=== PATIENT | male | born 1940 | race Caucasian/White ===

== ENCOUNTER → 2019-02-12 | Outpatient (CLI) | payer MEDICARE, OTHER, SELFPAY ==
[2019-02-08 08:28] VITALS: BMI 22.5
--- NOTE | 2019-02-12 06:12 | CDU_ITS ---
Reason For Study: VERTIGO Rt. Velocities/BP Lt. Velocities/BP Prox CCA 82.0/12.7 cm/sec. Prox CCA 136.8/19.9 cm/sec. Mid CCA 95.1/16.0 cm/sec. Mid CCA 87.5/16.3 cm/sec. Dist CCA 74.3/10.5 cm/sec. Dist CCA 71.1/9.7 cm/sec. Prox ICA 89.7/18.2 cm/sec. Prox ICA 79.7/14.6 cm/sec. Mid ICA 68.8/18.2 cm/sec. Mid ICA 60.0/15.8 cm/sec. Dist ICA 50.1/16.0 cm/sec. Dist ICA 74.8/19.5 cm/sec. Rt. ICA/CCA = 89.7/95.1=0.9. Lt. ICA/CCA = 79.7/87.5=0.9. Prox ECA 67.7/0.0 cm/sec. Prox ECA 47.8/0.0 cm/sec. Rt. Vert. 42.6/12.7 cm/sec. Lt. Vert. 38.6/11.2 cm/sec. Right Extracranial There is heterogeneous, smooth atherosclerotic plaque noted in the right common carotid artery. There is heterogeneous, irregular atherosclerotic plaque noted in the right internal carotid artery. There is no significant atherosclerotic plaque noted in the right external carotid artery. Antegrade flow is noted in the right vertebral artery. Left Extracranial There is intimal thickening but no significant atherosclerotic plaque noted in the left common carotid artery. There is heterogeneous, irregular atherosclerotic plaque noted in the left internal carotid artery. There is no significant atherosclerotic plaque noted in the left external carotid artery. Antegrade flow is noted in the left vertebral artery. Procedure Carotid Duplex [id number]. The study was technically difficult. The exam was diagnostic. Exam performed in department. 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 <50% stenosis right external carotid Minimal plague at the proximal left internal carotid with <50% stenosis. <50% stenosis left external carotid Patent and antegrade vertebrals bilaterally Ordering Physician: Jarod Linder Referring Physician: Leobardo Heredia Performed By: Maddie Carballo, HEDY, RVT
--- NOTE | 2019-02-12 06:12 | ECHOD_ITS ---
Reason For Study: s/p CABG Procedure This was a 2D Doppler, Color Flow transthoracic echocardiogram. Exam performed in department. Left Ventricle Normal LV size. Left ventricular systolic function is normal. The estimated ejection fraction is 65 %. Stage 1 diastolic dysfunction. No regional wall motion abnormalities noted. Right Ventricle Normal RV size. Normal systolic function. Atria Normal left atrium. Normal right atrium. Mitral Valve Normal mitral valve. Mild (1+) eccentric mitral valve insufficiency. Tricuspid Valve Normal tricuspid valve. Mild (1+) tricuspid valve insufficiency. Pulmonary artery systolic pressure is 28 mmHg. Aortic Valve Trisinus/trileaflet aortic valve. Mild focal aortic valve calcification. Mild (1+) aortic valve insufficiency. Pulmonic Valve Normal pulmonic valve. Mild (1+) pulmonic valve insufficiency. Great Vessels Normal aortic root. The pulmonary artery is normal size. Normal inferior vena cava. Pericardium/Pleural No pericardial effusion. Medication Performed a rapid injection of agitated mix of 9 cc saline and 1cc air to assess for atrial septal defect. MMode/2D Measurements & Calculations LVIDd: 4.7 cm IVSd: 1.1 cm Ao root diam: 3.1 cm LVIDs: 3.1 cm LVPWd: 0.92 cm RVDd: 4.3 cm FS: 35.6 % LAV(MOD-bp): 46.3 ml LVAd ap4: 29.7 cm2 SV(MOD-sp4): 59.7 ml LAV(MOD-bp) Indexed: 23.6 ml/m2 EDV(MOD-sp4): 93.4 ml LAV(MOD-sp2): 50.8 ml EDV(sp4-el): 97.4 ml LAV(MOD-sp4): 36.8 ml LVAs ap4: 16.1 cm2 ESV(MOD-sp4): 33.7 ml ESV(sp4-el): 34.4 ml EF(MOD-sp4): 63.9 % EF(sp4-el): 64.7 % SV(sp4-el): 63.0 ml LA A4 area: 14.6 cm2 LA dimension(2D): 4.4 cm RA A4 area: 12.3 cm2 Doppler Measurements & Calculations MV E max betito: 60.8 cm/sec Lat Peak E' Betito: 8.8 cm/sec Med Peak E' Betito: 4.1 cm/sec MV A max betito: 73.6 cm/sec E/E' lat: 6.9 E/E' med: 14.7 MV E/A: 0.83 Ao V2 max: 158.8 cm/sec AI max betito: 424.1 cm/sec LV V1 max: 154.2 cm/sec Ao max P.1 mmHg AI max P.9 mmHg LV V1 max P.5 mmHg Ao V2 mean: 97.3 cm/sec Ao mean P.3 mmHg AI dec slope: 163.4 cm/sec2 Ao V2 VTI: 37.5 cm AI P1/2t: 760.0 msec PA V2 max: 105.9 cm/sec PI end-d betito: 85.7 cm/sec TR max betito: 241.0 cm/sec TR max P.2 mmHg Interpretation Summary Normal LV size. Left ventricular systolic function is normal. The estimated ejection fraction is 65 %. Stage 1 diastolic dysfunction. Mild focal aortic valve calcification. Mild (1+) aortic valve insufficiency. Mild (1+) eccentric mitral valve insufficiency. Ordering Physician: Jarod Linder Referring Physician: Leobardo Heredia Performed By: Marcela Gibson, HEDY, RVT
[2019-02-12 07:18] LABS: Absolute Lymphocyte Count 2.01 X10^3/ul (0.83-4.51); Absolute Neutrophil Count 2.7 X10^3/uL (2.0-7.7); Basophil# 0.04 X10^3/uL; Basophil% 0.7 % (0-1); Eosinophil# 0.16 X10^3/uL; Eosinophils% 2.9 % (0-5); Hemoglobin 15.1 g/dl (13.0-16.5); Lymphocyte # 2.01 X10^3/ul (4.0); Lymphocyte % 35.9 % (19-41); Mean Corp Hgb Conc 35.1 g/gl (32-36); Mean Corpuscular Hgb 30.9 pg (27.0-32.0); Mean Corpuscular Volume 87.9 fL (80-94); Monocyte# 0.71 X10^3/uL; Monocyte% 12.7 % (0-10); Neutrophil # 2.67 X10^3/uL (2.7-7.7); Neutrophil % 47.6 % (47-70); Platelet Count 313 K/mm3 (150-450); RBC Distribution Width CV 12.8 % (11.6-14.6); Red Blood Count 4.89 M/mm3 (4.6-6.2); White Blood Count 5.6 K/mm3 (4.4-11.0)
[2019-02-12 07:32] LABS: AST(SGOT) 13 U/L (15-37); Alanine Aminotransfer ALT/SGPT 19 U/L (16-61); Albumin, Serum 3.8 g/dL (3.2-5.0); Alkaline Phosphatase 40 U/L (45-117); Anion Gap 8 (5-15); BUN 10 mg/dL (7-18); BUN/Creat Ratio 10.8 RATIO (10-20); Bilirubin, Direct 0.28 mg/dL (0.00-0.30); Calcium,Total 8.9 mg/dL (8.5-10.1); Chloride 102 mmol/L (98-107); Cholesterol 162 mg/dL (200); Creatinine, Serum 0.92 mg/dL (0.70-1.30); EST Glomerular Filtration Rate 84 mL/min (>60); Est Glom Filt Rate - Afr Amer 102 mL/min (>60); Globulin 3.4 g/dL (2.2-4.2); Glucose 101 mg/dL (74-106); High Density Lipoprotein 60 mg/dL; Potassium 3.9 mmol/L (3.5-5.1); Protein, Total 7.2 g/dL (6.4-8.2); Sodium Level 134 mmol/L (136-145); Thyroid Stim Hormone (TSH) 0.45 uIU/mL (0.358-3.74); Triglycerides 92 mg/dL; Very Low Density Lipoprotein 18 mg/dL (5-40)
[2019-02-12 07:34] LABS: POSITIVE COUNT NO; POSITIVE DIFFERENTIAL NO; POSITIVE MORPHOLOGY NO
--- NOTE | 2019-02-12 09:28 | STRESSREP ---
Stress Test Report Exercise myocardial stress test. 78-year-old male with a history of chest pain. Stress protocol: Resting EKG demonstrates sinus bradycardia with a rate of 46 bpm normal intervals are noted resting blood pressures 128/68 mmHg. The patient exercised according to regular Richar protocol for total duration of 8 minutes. The patient completed 2 minutes into stage III of the Richar protocol. The maximum heart rate attained was 120 bpm which was 83% of maximum predicted heart rate and maximum workload was 10.1 metabolic equivalents. Patient maintained sinus rhythm throughout the recording. At rest there were no ST changes noted to suggest ischemia at peak exercise there was 1.[address] depression noted in lead III, less than [address] depression noted in lead V4 and V5 and 1.[address] depression noted in lead II. The above is not indicative of ischemia. The patient did not experience any chest pain. The resting blood pressure was 128/68 with a peak blood pressure 170/78 mmHg. Myocardial perfusion protocol. 11.2 mCi of technetium 99m sestamibi was injected at rest. The patient exercised according to regular Richar protocol for 8 minutes. At peak exercise 33.3 mCi of technetium 99m sestamibi was injected stress images were obtained stress and rest images were reconstructed and compared in the short axis vertical long horizontal long axis. Perfusion SPECT analysis: Review of the stress images demonstrate normal uptake of tracer noted in the septum anterior wall lateral wall and inferior wall. The basal inferior wall on the stress images demonstrated mildly reduced perfusion which appeared to be similar in the resting images. The above is not indicative of ischemia of the previous small infarct cannot be completely excluded. Gated SPECT analysis: The gated ejection fraction is noted to be 69%. Conclusion: Exercise myocardial perfusion stress test with no evidence of ischemia noted at a high workload. No clinical angina noted No arrhythmias noted. Preserved ejection fraction.
== END | disposition home or self-care (01) ==
PROVIDERS: Family Provider Family Medicine; PCP Family Medicine; Referring Provider Internal Medicine Cardiovascular Disease; Visit Provider Internal Medicine Cardiovascular Disease
DX: R07.9 Chest pain, unspecified (principal); R09.89 Other specified symptoms and signs involving the circulatory and respiratory systems; E78.5 Hyperlipidemia, unspecified; Z95.1 Presence of aortocoronary bypass graft
CPT/HCPCS: 36415; 78452; 80048; 80061; 80076; 84443; 84484; 85025; 93017; 93306; 93880; A9500; A4216

== ENCOUNTER 2022-04-12 21:25 | Inpatient (IN) | payer MEDICARE, OTHER, SELFPAY ==
[2022-04-12] VITALS (8 sets, daily range): BP systolic 145–197; BP diastolic 63–81; PULSE 52–70; RESP 13–22; TEMP 35.9–36.7; O2SAT 96–99; BMI 21.2; BMI 19.8
--- NOTE | 2022-04-12 21:30 | EKG12_ITS ---
Test Reason : DYSRHYTHMIA Blood Pressure : / mmHG Vent. Rate : 052 BPM Atrial Rate : 052 BPM P-R Int : 204 ms QRS Dur : 090 ms QT Int : 478 ms P-R-T Axes : 044 -06 074 degrees QTc Int : 444 ms Sinus bradycardia Otherwise normal ECG Confirmed by PERRI SIBLEY, MORALES ([id number]), metropolitan editor JOHN WATERMAN ([id number]) on 04/13/2022 9:22:46 AM Referred By: TL Confirmed By:MORALES RAYO MD
--- NOTE | 2022-04-12 21:30 | CT_ITS ---
STUDY: CT HEAD STROKE PROTOCOL W/O CONTRAST INJECTION REASON FOR EXAM: Male, 82 years old. Neuro deficit, acute, stroke suspected TECHNIQUE: Transaxial CT imaging of the brain was performed without administration of intravenous contrast material. There is image blurring as a result of patient motion. Diagnostic accuracy is somewhat reduced. However, there is substantial diagnostic information remaining available on this study. Individualized dose optimization techniques were used for this CT. COMPARISON: No relevant priors. FINDINGS: Normal soft tissue structures. Normal calvarium. Normal size ventricles and extra-axial spaces for the patient''s age. Normal white matter tracts of the cerebral hemispheres. Normal basal ganglia and thalami. Normal brainstem. Normal cerebellum. There is no intracranial hemorrhage. There are no findings of an acute ischemic infarction. 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 There is no acute intracranial pathology. N.B. : The above Results were Read Back by Kaila Johnson MD to Dr. Adia MD, and understanding confirmed on 04/12/2022 21:45:32 (ET). Electronically Signed: Kaila Johnson MD at 21:46 EDT Reading Location ID and State: , Service support ,
--- NOTE | 2022-04-12 21:45 | ED.VIS.STROK ---
HPI History of Present Illness Chief Complaint: Neuro S/Sx Informant: patient and family Narrative Narrative: Patient seen immediately after stroke team activated and brought back from CT. Daughter was present who gave me history while he was at CT. Last normal with her discussion 7 PM when he went to [facility]. She received a call around 8 PM that patient was staring. She arrived there he could not talk. He nodded. He walked to the car per daughter. No stroke history. History of CABG back in 1995 on baby aspirin. History of hypertension hyperlipidemia hypothyroidism and BPH. No stroke history. No recent surgeries. Daughter reports recent trouble swallowing, saw Dr. Gaviria with nasolaryngoscopy that was negative. His upcoming barium swallow study. He had no issues with swallowing in the past. 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) Home Medications aspirin 81 mg tablet,delayed release (Adult Low Dose Aspirin) 81 mg PO DAILY #90 tabs 02/08/19 [Rx Last Taken Unknown] lisinopril 20 mg-hydrochlorothiazide 12.5 mg tablet 1 tab PO DAILY #90 tabs 02/08/19 [Rx Last Taken Unknown] nitroglycerin 0.4 mg sublingual tablet 0.4 mg sublingual Q5-15M 02/08/19 [History Last Taken Unknown] simvastatin 40 mg tablet 40 mg PO DAILY #90 tabs 02/08/19 [Rx Last Taken Unknown] tamsulosin 0.4 mg capsule (Flomax) 0.4 mg PO DAILY #90 caps 02/12/19 [Rx Last Taken Unknown] finasteride 5 mg tablet 5 mg PO DAILY 09/02/21 [History Last Taken Unknown] levothyroxine 100 mcg tablet 100 mcg PO DAILY 09/02/21 [History Last Taken Unknown] Allergy/AdvReac Type Severity Reaction Status Date / Time No Known Allergies Allergy Verified 04/12/22 21:26 Family History Father Cancer Mother Heart disease Surgical History H/O coronary artery bypass surgery (10/20/95) History of appendectomy History of cataract surgery History of coronary angioplasty (03/1995) Hx of cholecystectomy Social History Smoking Status: Never smoker alcohol intake: current alcohol intake frequency: holidays/special occasions only substance use type: does not use caffeine: Yes Type: coffee ROS ROS ED Constitutional Constitutional ED: Denies chills, fever(s) or sweats Eyes Eyes: Denies change in vision ENT ENT ED: Denies dysphagia or sore throat Cardiovascular Cardiovascular: Denies chest pain, leg edema, palpitations or racing heartbeat Respiratory/Chest Respiratory/Chest: Denies cough, dyspnea or dyspnea on exertion Gastrointestinal Gastrointestinal: Reports nausea and vomiting; Denies abdominal pain or diarrhea Genitourinary Genitourinary ED: Denies dysuria, hematuria or urinary frequency Musculoskeletal Musculoskeletal: Denies back pain, extremity pain or neck pain Integumentary Denies rash or wounds Neurologic Neurologic: Reports other Details: Trouble speaking. ; Denies headache(s), paresthesias or weakness EXAM Physical Exam Const Vital Signs: 04/12/22 21:43 04/12/22 21:47 04/12/22 21:58 Temperature 96.7 F L Temperature Source Temporal Pulse Rate 52 L 55 L Respiratory Rate 22 H 16 Blood Pressure 197/81 H 164/69 H Blood Pressure Mean 119 100 Pulse Ox 99 99 Oxygen Delivery Method Room Air Room Air Room Air 04/12/22 21:30 04/12/22 22:00 04/12/22 22:25 Temperature Temperature Source Pulse Rate 56 L 56 L 70 Respiratory Rate 13 18 16 Blood Pressure 149/76 H 147/72 H 151/81 H Blood Pressure Mean 100 97 104 Pulse Ox 99 99 96 Oxygen Delivery Method Room Air Room Air Room Air 04/12/22 22:30 04/12/22 23:07 Temperature 98.1 F Temperature Source Temporal Pulse Rate 57 L 56 L Respiratory Rate 20 H 17 Blood Pressure 157/69 H 159/76 H Blood Pressure Mean 98 103 Pulse Ox 99 96 Oxygen Delivery Method Room Air Room Air Positive well nourished and well developed Constitutional Narrative: Hard of hearing. Nontoxic. Following commands. There is emesis on his shirt and pants. General Appearance ED: well developed and NAD HEENT Reports moist mucous membranes normocephalic and atraumatic Eyes PERRL, EOMs intact bilaterally and conjunctivae normal General Eye ED: Yes normal appearance of both eyes Neck no lymphadenopathy and supple General: Negative for tenderness Chest Wall Chest: Negative for tenderness Resp normal respiratory effort and normal air movement Effort and Inspection: symmetric chest movement; Negative for respiratory distress Cardio regular rate, regular rhythm and no murmurs Peripheral Pulses: pulses 2+ throughout GI normal to inspection, nondistended, normoactive bowel sounds and non-tender Palpation: Negative for guarding or rebound tenderness present Back/Spine no CVA tenderness and no thoracic nor lumbar tenderness Extremity normal to inspection General Extremety ED: Negative for edema or tenderness General Extremity: Negative for edema Neuro oriented x3 and no sensory deficits noted Sensorium / Orientation: awake and alert Skin no rashes or lesions noted and no wounds NIHSS NIHSS Initial: 1a Level of Consciousness: 0 1b LOC Questions (Score 2 if aphasic/stupor): 1 1c LOC Commands (Only score 1st attempt): 0 2 Best Gaze (If aphasic, use reflexive mvmts.): 0 3 Visual: 0 4 Facial Palsy: 0 5 Motor Arm Right (UN = amputation/fusion): 0 5 Motor Arm Left: 0 6 Motor Leg Right: 0 6 Motor Leg Left: 0 7 Limb ataxia (Only + if out of proportion): 0 8 Sensory (Aphasia/stupor=0 or 1, coma=2): 1 9 Best Language: 1 10 Dysarthria (mute, coma=2, intubated=UN): 0 11 Extinction and Inattention (only scored if +): 0 Total Score: 3 MDM MDM MDM Narrative Medical decision making narrative: Stroke team was activated from triage. NIH of 3 on my evaluation. During neurology evaluation he was improving he knew the month at that time. Extensive evaluation by neurology , risks and benefits discussed. Per doctors Zha, symptoms too mild for tPA did not recommend that risk is higher. CT head negative per radiology mild ectasia of the basilar artery up to 0.6cm. He has no posterior circulation symptoms. CTA head and neck obtained showed no LVO per radiology. Reevaluation patient is stable blood pressure stable he is currently not back to full baseline. Discussed with hospitalist Dr. Agyepong for admission to PCU for further inpatient management. Lab Data Labs: Laboratory Results - last 24 hr 04/12/22 04/12/22 04/12/22 21:39 21:40 21:40 WBC 9.0 RBC 4.33 L Hgb 13.5 Hct 39.3 L MCV 90.8 MCH 31.2 MCHC 34.4 RDW Std Deviation 44.1 H RDW Coeff of Silvana 13.2 Plt Count 344 MPV 8.9 Immature Gran % (Auto) 0.400 Neut % (Auto) 64.7 Lymph % (Auto) 22.1 [place] % (Auto) 11.2 H Eos % (Auto) 0.9 Baso % (Auto) 0.7 Absolute Neuts (auto) 5.8 Absolute Lymphs (auto) 1.98 Nucleated RBC % 0 PT 13.4 INR 1.1 APTT 30.1 Sodium Potassium Chloride Carbon Dioxide Anion Gap BUN Creatinine Estim Creat Clear Calc Est GFR (MDRD) Af Amer Est GFR (MDRD) Non-Af BUN/Creatinine Ratio Glucose Calcium Troponin I High Sens POC Glucose 113 H 04/12/22 21:40 WBC RBC Hgb Hct MCV MCH MCHC RDW Std Deviation RDW Coeff of Silvana Plt Count MPV Immature Gran % (Auto) Neut % (Auto) Lymph % (Auto) [place] % (Auto) Eos % (Auto) Baso % (Auto) Absolute Neuts (auto) Absolute Lymphs (auto) Nucleated RBC % PT INR APTT Sodium 132 L Potassium 3.9 Chloride 97 L Carbon Dioxide 25.0 Anion Gap 10 BUN 16 Creatinine 0.85 Estim Creat Clear Calc 69.41 Est GFR (MDRD) Af Amer 112 Est GFR (MDRD) Non-Af 93 BUN/Creatinine Ratio 18.9 Glucose 120 H Calcium 10.1 Troponin I High Sens 10 POC Glucose Radiography Diagnostic Testing: Clinical Impression(s) from Imaging Studies Brain CT 04/12/22 21:30 IMPRESSION: Chronic involutional changes of the brain. 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 There is no acute intracranial pathology. N.B. : The above Results were Read Back by Kaila Johnson MD to Dr. Adia MD, and understanding confirmed on 04/12/2022 21:45:32 (ET). Electronically Signed: Kaila Johnson MD at 21:46 EDT , ADDENDUM: 04/12/22 2153 IMPRESSION: Chronic involutional changes of the brain. 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 There is no acute intracranial pathology. N.B. : The above Results were Read Back by Kaila Johnson MD to Dr. Adia MD, and understanding confirmed on 04/12/2022 21:45:32 (ET). Electronically Signed: Kaila Johnson MD at 21:46 EDT , Head/Neck CTA 04/12/22 22:00 IMPRESSION: No significant arterial narrowing in the head or neck. Dolichoectatic basilar. Mild atherosclerosis. Degenerative changes cause moderate to severe spinal canal narrowing at C3-4 and high-grade foraminal narrowing on the left at C3-4, C4-5, and C5-C6. N.B. : The above Results were Read Back by Tommy Marquez MD to Dr. Adia MD, and understanding confirmed on 04/12/2022 22:39:45 (ET). Electronically Signed: Tommy Marquez MD at 22:41 EDT Reading Location ID and State: [address] [place] [address] Tel , Service support , ADDENDUM: 04/12/22 2248 IMPRESSION: No significant arterial narrowing in the head or neck. Dolichoectatic basilar. Mild atherosclerosis. Degenerative changes cause moderate to severe spinal canal narrowing at C3-4 and high-grade foraminal narrowing on the left at C3-4, C4-5, and C5-C6. N.B. : The above Results were Read Back by Tommy Marquez MD to Dr. Adia MD, and understanding confirmed on 04/12/2022 22:39:45 (ET). Electronically Signed: Tommy Marquez MD at 22:41 EDT , Chest X-Ray 04/12/22 22:10 IMPRESSION: No acute cardiopulmonary disease. No significant interval change. Other nonacute findings as outlined above. Electronically Signed: Kaila Johnson MD at 22:28 EDT , EKG Initial EKG: Attestation: I personally reviewed and interpreted this EKG as follows: Comments: Sinus rate of 52, no ST changes isolated T wave inversion in aVL. Nonspecific. Similar to September 2021. Stroke Documentation Questions Stroke Team Activated: Yes Reviewed Inclusion/Exclusion criteria: Yes Was Patient considered for Endovascular Intervention?: No-CTA negative, determined not to be an endovascular candidate IV Alteplase (t-PA) Administered: No (To mild for tPA risk higher per neurologist.) No contraindications for IV Alteplase (t-PA) administration.: No Discharge Plan Dx/Rx/DC Orders Clinical Impression: Acute CVA (cerebrovascular accident), Dysarthria, CAD (coronary artery disease) Disposition Disposition: Acute Care Hospital [facility] Discharge Date/Time: 04/12/22 23:37
[2022-04-12 21:48] LABS: Absolute Lymphocyte Count 1.98 X10^3/uL (0.83-4.51); Absolute Neutrophil Count 5.8 X10^3/uL (2.0-7.7); Basophil# 0.06 X10^3/uL; Basophil% 0.7 % (0-1); Eosinophil# 0.08 X10^3/uL; Eosinophils% 0.9 % (0-5); Hematocrit 39.3 % (40-54); Hemoglobin 13.5 g/dL (13.0-16.5); Lymphocyte # 1.98 X10^3/ul (0.83-4.51); Lymphocyte % 22.1 % (19-41); Mean Corp Hgb Conc 34.4 g/dL (32-36); Mean Corpuscular Hgb 31.2 pg (27.0-32.0); Mean Corpuscular Volume 90.8 fL (80-94); Mean Platelet Vol. 8.9 fl (6.2-12.0); Monocyte% 11.2 % (0-10); NRBC Flagged by Analyzer 0 % (0-5); Neutrophil # 5.79 X10^3/uL (2.7-7.7); Neutrophil % 64.7 % (47-70); Platelet Count 344 K/mm3 (150-450); RBC Distribution Width CV 13.2 % (11.6-14.6); RBC Distribution Width SD 44.1 fl (35.1-43.9); Red Blood Count 4.33 M/mm3 (4.6-6.2)
[2022-04-12 21:57] LABS: International Normalized Ratio 1.1; Prothrombin Time (Protime)PT. 13.4 SECONDS (11.7-14.9)
[2022-04-12 21:58] LABS: Partial Thromboplast Time 30.1 Seconds (24.1-36.2)
[2022-04-12 22:00] LABS: Bedside Glucose 113 mg/dL (74-106)
--- NOTE | 2022-04-12 22:00 | CT_ITS ---
STUDY: CTA HEAD AND NECK WITH CONTRAST REASON FOR EXAM: Male, 82 years old. Stroke symptoms. RADIATION DOSAGE (If Supplied By Facility): CTDIvol = ( 27.50 ) mGy, DLP = ( 740.18 ) mGycm TECHNIQUE: CT angiography was performed with a multi-detector CT scanner. Data acquisition was obtained from the skull base through the vertex following intravenous administration of IV 100mL Isovue-370 with MIP and 3D reconstructed images. Individualized dose optimization techniques were used for this CT. COMPARISON: Head CT without contrast earlier same date. Carotid ultrasound 02/12/2019. FINDINGS: Cervical ICA narrowing is measured per NASCET criteria (% ICA stenosis = (1 - [narrowest ICA diameter/diameter normal distal cervical ICA]) x 100. CTA NECK: Aortic arch: Left-sided 3 vessel aortic arch with no significant narrowing of the great vessel origins or subclavian arteries. Right carotids: Right CCA: No significant narrowing or dissection. Right ICA: No significant narrowing or dissection. Mild, 10%, narrowing of the origin secondary to mixed plaque. Right ECA: No significant narrowing or dissection. Left carotids Left CCA:No significant narrowing or dissection. Left ICA: No significant narrowing or dissection. Small amount of calcific plaque causes no significant narrowing of the origin. Left ECA: No significant narrowing or dissection. Vertebrals: Codominant vertebral arteries with no significant narrowing and no dissection. CTA HEAD: Intracranial carotids:Normal course and caliber. MCAs:No aneurysm or significant stenosis. ACAs:No aneurysm or significant stenosis. Basilar: No narrowing. Moderately dolichoectatic. independent living instructor:Multifocal mild atherosclerotic irregularity. No high-grade narrowing. Fed by dominant P1 segments bilaterally. Patent bilateral posterior and anterior inferior and superior cerebellar arteries are identified. No evidence of AVM or aneurysm. No intracranial DVT. Nonvascular structures: Degenerative changes cervical spine. Disc osteophyte complex and degenerative buckling of the ligamentum flavum causes moderate to severe spinal canal narrowing at C3-4. Osteophytes cause high-grade foraminal narrowing on the left at C3-4, C4-5, and C5-C6. Sternotomy wires partially visible. Left maxillary sinus almost completely filled with mucosal thickening and fluid. CT/STROKE CTA Head AND Neck W/Con IMPRESSION: No significant arterial narrowing in the head or neck. Dolichoectatic basilar. Mild atherosclerosis. Degenerative changes cause moderate to severe spinal canal narrowing at C3-4 and high-grade foraminal narrowing on the left at C3-4, C4-5, and C5-C6. N.B. : The above Results were Read Back by Tommy Marquez MD to Dr. Adia MD, and understanding confirmed on 04/12/2022 22:39:45 (ET). Electronically Signed: Tommy Marquez MD at 22:41 EDT Reading Location ID and State: [facility] / [place] Tel , Service support ,
[2022-04-12 22:08] LABS: Anion Gap 10 (5-15); BUN 16 mg/dL (7-18); BUN/Creat Ratio 18.9 RATIO (10-20); Calcium,Total 10.1 mg/dL (8.5-10.1); Chloride 97 mmol/L (98-107); Creatinine, Serum 0.85 mg/dL (0.70-1.30); EST Glomerular Filtration Rate 93 mL/min (>60); Est Glom Filt Rate - Afr Amer 112 mL/min (>60); Estimated Creatinine Clearance 69.41 ml/min; Glucose 120 mg/dL (74-106); Potassium 3.9 mmol/L (3.5-5.1); Sodium Level 132 mmol/L (136-145); Troponin-I HS 10 pg/mL (3.0-78.0)
--- NOTE | 2022-04-12 22:10 | RAD_ITS ---
STUDY: X-RAY CHEST REASON FOR EXAM: Male, 82 years old. Neuro deficit, acute, stroke suspected TECHNIQUE: Single AP portable view of the chest. COMPARISON: 05/13/2016 FINDINGS: There are superimposed monitor leads. Retained contrast in the venous valves right upper extremity. The lungs are clear and expanded. There is no demonstrated pleural abnormality. Sternal cerclage wires are present from a prior sternotomy. Normal mediastinum and kristina. Normal visualized pulmonary arteries. Normal 63 visualized aortic arch and descending thoracic aorta. There is demineralization of the osseous structures. There is degenerative osteoarthritis of the bilateral shoulders. There is no demonstrated abnormality of the visualized soft tissue structures of the upper abdomen. RAD/Chest 1 View IMPRESSION: No acute cardiopulmonary disease. No significant interval change. Other nonacute findings as outlined above. Electronically Signed: Kaila Johnson MD at 22:28 EDT Reading Location ID and State: , Service support ,
[2022-04-12] MEDS: Ondansetron 4 MG/2 ML Vial IV (22:13)
--- NOTE | 2022-04-12 23:09 | PCM.HP.STD ---
HPI - General General Date of Admission: 04/12/22 Date of Service: 04/12/22 Chief Complaint: Strokelike symptoms HPI Narrative ARABELLA GARCIA, is a 82 M with a significant history of CAD status post CABG; hypothyroidism; sinus bradycardia; and hyperlipidemia who presents emergency department with strokelike symptoms. About 2 hours before presentation patient was at judaism and then he began to stare. He was unable to talk. He was answering questions by nodding. Reportedly initially at the emergency department he did not know the month but later on he knew the month. Emergency department doctor reported some change in sensation. At the emergency department his aphasia went away and he stopped staring. Reportedly patient had 1 episode of vomiting prior to coming to emergency department and another episode of vomiting at the emergency department. 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) Home Medications aspirin 81 mg tablet,delayed release (Adult Low Dose Aspirin) 81 mg PO DAILY #90 tabs 02/08/19 [Rx Last Taken Unknown] lisinopril 20 mg-hydrochlorothiazide 12.5 mg tablet 1 tab PO DAILY #90 tabs 02/08/19 [Rx Last Taken Unknown] nitroglycerin 0.4 mg sublingual tablet 0.4 mg sublingual Q5-15M 02/08/19 [History Last Taken Unknown] simvastatin 40 mg tablet 40 mg PO DAILY #90 tabs 02/08/19 [Rx Last Taken Unknown] tamsulosin 0.4 mg capsule (Flomax) 0.4 mg PO DAILY #90 caps 02/12/19 [Rx Last Taken Unknown] finasteride 5 mg tablet 5 mg PO DAILY 09/02/21 [History Last Taken Unknown] levothyroxine 100 mcg tablet 100 mcg PO DAILY 09/02/21 [History Last Taken Unknown] Allergy/AdvReac Type Severity Reaction Status Date / Time No Known Allergies Allergy Verified 04/12/22 21:26 Family History Father Cancer Mother Heart disease Surgical History H/O coronary artery bypass surgery (10/20/95) History of appendectomy History of cataract surgery History of coronary angioplasty (03/1995) Hx of cholecystectomy Social History Smoking Status: Never smoker alcohol intake: current alcohol intake frequency: holidays/special occasions only substance use type: does not use caffeine: Yes Type: coffee ROS ROS Narrative Pertinent positives and pertinent negatives as noted in HPI. All other systems were reviewed and are negative Vital Signs Vital Signs Vital Signs: 04/12/22 21:43 04/12/22 21:47 04/12/22 21:58 Temperature 96.7 F L Temperature Source Temporal Pulse Rate 52 L 55 L Respiratory Rate 22 H 16 Blood Pressure 197/81 H 164/69 H Blood Pressure Mean 119 100 Pulse Ox 99 99 Oxygen Delivery Method Room Air Room Air Room Air 04/12/22 21:30 04/12/22 22:00 04/12/22 22:25 Temperature Temperature Source Pulse Rate 56 L 56 L 70 Respiratory Rate 13 18 16 Blood Pressure 149/76 H 147/72 H 151/81 H Blood Pressure Mean 100 97 104 Pulse Ox 99 99 96 Oxygen Delivery Method Room Air Room Air Room Air 04/12/22 22:30 Temperature Temperature Source Pulse Rate 57 L Respiratory Rate 20 H Blood Pressure 157/69 H Blood Pressure Mean 98 Pulse Ox 99 Oxygen Delivery Method Room Air Weight Weight: 70.8 kg Body Mass Index (BMI) 21.2 Physical Exam Narrative Physical exam: General: Well-nourished, well-developed. Head: Normocephalic, atraumatic, no tenderness Eyes: Vision is grossly intact. EOMI ENT, no trauma, moist mucous membranes, no rhinorrhea Neck: Nontender, full range of motion, no spinal tenderness. CVS: Regular rate and rhythm. S1-S2 present. Gallop present. Respiratory : clear to auscultation bilaterally, chest wall nontender, no wheezing Abdomen: Soft, nontender, nondistended, normal bowel sounds, no masses : Deferred Back: Nontender, no CVA tenderness. Extremities: Nontender full range of motion, no trauma Skin: Normal color, no trauma, abrasions Neuro: Alert, oriented, cranial nerves II through XII grossly intact. No sensation changes. No dysmetria with cfoavs-[id number] test and gfeb-qf-[id number] test. Psychiatry: Normal mood. Normal affect. Not depressed. Not anxious. Results Lab / Micro Data Result Diagrams: 04/12/22 21:40 04/12/22 21:40 Labs: Laboratory Results - last 24 hr 04/12/22 21:39: POC Glucose 113 H 04/12/22 21:40: WBC 9.0, RBC 4.33 L, Hgb 13.5, Hct 39.3 L, MCV 90.8, MCH 31.2, MCHC 34.4, RDW Std Deviation 44.1 H, RDW Coeff of Silvana 13.2, Plt Count 344, MPV 8.9, Immature Gran % (Auto) 0.400, Neut % (Auto) 64.7, Lymph % (Auto) 22.1, [place] % (Auto) 11.2 H, Eos % (Auto) 0.9, Baso % (Auto) 0.7, Absolute Neuts (auto) 5.8, Absolute Lymphs (auto) 1.98, Nucleated RBC % 0 04/12/22 21:40: PT 13.4, INR 1.1, APTT 30.1 04/12/22 21:40: Sodium 132 L, Potassium 3.9, Chloride 97 L, Carbon Dioxide 25.0, Anion Gap 10, BUN 16, Creatinine 0.85, Estim Creat Clear Calc 69.41, Est GFR (MDRD) Af Amer 112, Est GFR (MDRD) Non-Af 93, BUN/Creatinine Ratio 18.9, Glucose 120 H, Calcium 10.1, Troponin I High Sens [address] 04/12/22 21:30 IMPRESSION: Chronic involutional changes of the brain. 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 There is no acute intracranial pathology. N.B. : The above Results were Read Back by Kaila Johnson MD to Dr. Adia MD, and understanding confirmed on 04/12/2022 21:45:32 (ET). Electronically Signed: Kaila Johnson MD at 21:46 EDT Reading Location ID and State: , Service support , ADDENDUM: 04/12/223 IMPRESSION: Chronic involutional changes of the brain. 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 There is no acute intracranial pathology. N.B. : The above Results were Read Back by Kaila Johnson MD to Dr. Adia MD, and understanding confirmed on 04/12/2022 21:45:32 (ET). Electronically Signed: Kaila Johnson MD at 21:46 EDT Reading Location ID and State: , Service support , Head/Neck CTA 04/12/22 22:00 IMPRESSION: No significant arterial narrowing in the head or neck. Dolichoectatic basilar. Mild atherosclerosis. Degenerative changes cause moderate to severe spinal canal narrowing at C3-4 and high-grade foraminal narrowing on the left at C3-4, C4-5, and C5-C6. N.B. : The above Results were Read Back by Arabella Marquez MD to Dr. Adia MD, and understanding confirmed on 04/12/2022 22:39:45 (ET). Electronically Signed: Arabella Marquez MD at 22:41 EDT Reading Location ID and State: [facility] [place] Tel , Service support , ADDENDUM: 04/12/22 2248 IMPRESSION: No significant arterial narrowing in the head or neck. Dolichoectatic basilar. Mild atherosclerosis. Degenerative changes cause moderate to severe spinal canal narrowing at C3-4 and high-grade foraminal narrowing on the left at C3-4, C4-5, and C5-C6. N.B. : The above Results were Read Back by Arabella Marquez MD to Dr. Adia MD, and understanding confirmed on 04/12/2022 22:39:45 (ET). Electronically Signed: Arabella Marquez MD at 22:41 EDT Reading Location ID and State: [facility] / [place] Tel , Service support , Chest X-Ray 04/12/22 22:10 IMPRESSION: No acute cardiopulmonary disease. No significant interval change. Other nonacute findings as outlined above. Electronically Signed: Kaila Johnson MD at 22:28 EDT Reading Location ID and State: , Service support , Assessment & Plan Assessment/Plan (1) Stroke-like symptoms: PLAN: Plan Strokelike symptoms Serial NINDS NIH Scale ordered Impression of head CT by radiology: No acute intracranial pathology Upon my personal head CT image review: I agree with radiologist interpretation Lipid profile and A1c ordered. Physical therapy, occupational therapy and speech therapy to work with patient. N.p.o. until bedside swallow eval. Daily aspirin and high intensity statin continued High intensity statin Permissive hypertension. Control blood pressure with labetalol for systolic blood pressure of more than 220 or diastolic blood pressure of more than 120. MRI of head ordered Echocardiogram ordered. Hypertension Blood pressure is not within goal Hold home blood pressure medication for permissive hypertension as above. Trend blood pressure and adjust blood pressure medications. Hyponatremia Sodium presentation was mildly decreased at 132. Review of record showed that this is chronic. Trend BMP. Dysphagia Reportedly patient had nasolaryngoscopy with Dr. Oh and barium swallow is scheduled for 04/16/2022. Speech consult while inpatient. DVT prophylaxis: SCDs ordered Miscellaneous: Family issue with police involvement. Reportedly patient's called the police that patient is missing while patient was not indeed missing. Police was at the ED to see patient. Case management consult for disposition .
--- NOTE | 2022-04-12 23:39 | ECHOD_ITS ---
Reason For Study: TIA/CVA Procedure This was a 2D Doppler, Color Flow transthoracic echocardiogram. Exam performed portable in patient room. Left Ventricle Normal LV size. Left ventricular systolic function is normal. The estimated ejection fraction is 55 %. Stage 2 diastolic dysfunction. No regional wall motion abnormalities noted. Right Ventricle Normal RV size. Normal systolic function. Atria Normal left atrium. Normal right atrium. Mitral Valve Normal mitral valve. Tricuspid Valve Normal tricuspid valve. Aortic Valve Trisinus/trileaflet aortic valve. Mild diffuse aortic valve thickening. Mild (1+) aortic valve insufficiency. Pulmonic Valve Normal pulmonic valve. Great Vessels Normal aortic root. The pulmonary artery is normal size. Normal inferior vena cava. Pericardium/Pleural No pericardial effusion. MMode/2D Measurements & Calculations LVIDd: 5.2 cm IVSd: 0.85 cm Ao root diam: 3.5 cm LVIDs: 3.7 cm LVPWd: 0.86 cm RVDd: 3.4 cm FS: 29.8 % LAV(MOD-bp): 48.6 ml LA A4 area: 19.9 cm2 LA dimension(2D): 3.5 cm LAV(MOD-bp) Indexed: 26.1 ml/m2 LAV(MOD-sp2): 37.8 ml LAV(MOD-sp4): 59.4 ml RA A4 area: 16.2 cm2 Time Measurements MV dec time: 0.33 sec Doppler Measurements & Calculations MV E max betito: 66.5 cm/sec Lat Peak E' Betito: 10.7 cm/sec Med Peak E' Betito: 8.8 cm/sec MV A max betito: 56.9 cm/sec E/E' lat: 6.2 E/E' med: 7.6 MV E/A: 1.2 MV dec slope: 203.4 cm/sec2 Ao V2 max: 162.4 cm/sec AI max betito: 418.5 cm/sec Ao max P.5 mmHg AI max P.1 mmHg AI dec slope: 157.5 cm/sec2 AI P1/2t: 778.5 msec LV V1 max: 129.3 cm/sec PA V2 max: 85.6 cm/sec LV V1 max P.7 mmHg ECHO/Echo Complete Interpretation Summary Normal LV size. Left ventricular systolic function is normal. The estimated ejection fraction is 55 %. Stage 2 diastolic dysfunction. Mild (1+) aortic valve insufficiency. Previous negative bubble noted in 2018. No obvious cardioembolic source noted Ordering Physician: Josh Lyle Referring Physician: Leobardo Heredia Performed By: Maddie Carballo RDCS, RVT
[2022-04-13] VITALS (13 sets, daily range): BP systolic 105–114; BP diastolic 55–65; PULSE 45–64; RESP 16–18; TEMP 36.7–37.1; O2SAT 96–99; BMI 19.8
[2022-04-13] MEDS: MELATONIN 3 MG TABLET PO ×2 (00:24→21:37)
[2022-04-13 07:02] LABS: Absolute Lymphocyte Count 1.52 X10^3/uL (0.83-4.51); Absolute Neutrophil Count 7.5 X10^3/uL (2.0-7.7); Basophil# 0.06 X10^3/uL; Basophil% 0.6 % (0-1); Eosinophil# 0.04 X10^3/uL; Eosinophils% 0.4 % (0-5); Hematocrit 38.5 % (40-54); Hemoglobin 13.1 g/dL (13.0-16.5); Lymphocyte # 1.52 X10^3/ul (0.83-4.51); Lymphocyte % 14.8 % (19-41); Mean Platelet Vol. 9.4 fl (6.2-12.0); Monocyte# 1.08 X10^3/uL; Monocyte% 10.5 % (0-10); NRBC Flagged by Analyzer 0 % (0-5); Neutrophil # 7.51 X10^3/uL (2.7-7.7); Neutrophil % 73.2 % (47-70); Platelet Count 341 K/mm3 (150-450); RBC Distribution Width CV 13.4 % (11.6-14.6); RBC Distribution Width SD 44.7 fl (35.1-43.9); Red Blood Count 4.23 M/mm3 (4.6-6.2); White Blood Count 10.3 K/mm3 (4.4-11.0)
[2022-04-13 07:15] LABS: Bedside Glucose 100 mg/dL (74-106)
[2022-04-13 07:44] LABS: Anion Gap 9 (5-15); BUN 15 mg/dL (7-18); Calcium,Total 9.1 mg/dL (8.5-10.1); Chloride 98 mmol/L (98-107); Cholesterol 155 mg/dL (200); Creatinine, Serum 0.75 mg/dL (0.70-1.30); EST Glomerular Filtration Rate 106 mL/min (>60); Est Glom Filt Rate - Afr Amer 129 mL/min (>60); Estimated Creatinine Clearance 55.38 ml/min; Glucose 104 mg/dL (74-106); High Density Lipoprotein 70 mg/dL; Potassium 3.9 mmol/L (3.5-5.1); Sodium Level 131 mmol/L (136-145); Triglycerides 52 mg/dL; Very Low Density Lipoprotein 10 mg/dL (5-40)
[2022-04-13] MEDS: 0.9% Saline Lock 10 ML Syringe IV (07:57)
[2022-04-13] MEDS: Ondansetron 4 MG/2 ML Vial IV (07:57)
--- NOTE | 2022-04-13 08:03 | NURSING ---
Patient agitated and attempting to get out of bed. Sitter placed in room.
[2022-04-13 08:06] LABS: Hemoglobin A1c 5.4 % (3.8-5.6)
--- NOTE | 2022-04-13 09:00 | MRI_ITS ---
STUDY: MRI BRAIN WITHOUT CONTRAST REASON FOR EXAM: Male, 82 years old. cva, APHASIA TECHNIQUE: Standardized multiplanar fat and water weighted pulse sequences were obtained. COMPARISON: None. FINDINGS: There is moderate cerebral atrophy with widening of the extra-axial spaces and ventricular dilatation. There are a limited number of small white matter hyperintensities, distributed throughout the deep white matter tracts of the cerebral hemispheres, consistent with mild chronic white matter ischemic changes. There is no evidence for recent intracranial ischemia or other cause of cytotoxic edema on diffusion weighted imaging (DWI). Normal T2* images of the brain without demonstrated susceptibility artifact. There is no demonstrated hemosiderin stain. Normal bilateral basal ganglia. Normal thalami. There is no extra-axial fluid accumulation. Normal flow voids within the major intracranial circulation suggesting patency by spin echo criteria. Normal sella turcica, pituitary gland, infundibular stalk, optic chiasm and hypothalamus. Normal tectal plate and pineal gland. Normal midbrain, sunil and medulla. Normal cerebellum. Normal basal cisterns. Normal bilateral temporal bones. Normal bilateral internal auditory canals. No demonstrated orbital abnormality, within the constraints of a routine brain study. Moderate to significant mucus opacification of the left maxillary sinus is present. Normal calvarium and skull base. Normal visualized soft tissue structures. Normal visualized upper cervical spine. MRI/Brain without Contrast IMPRESSION: 1. Involutional changes of the brain, as described above. 2. No acute infarct. Electronically Signed: Doug Mayes MD at 15:33 EDT ,
[2022-04-13 09:48] LABS: Bacteria 0 SEEN /hpf (None Seen); Mucous, Urine 0 SEEN /hpf (<or=2+); Red Blood Cells-Urine 0 SEEN /hpf (0-5); Squamous Epithelial Cells - UA 0 SEEN /hpf (0-5)
[2022-04-13 09:51] LABS: Color, Urine Yellow (Yellow); Glucose, Dipstick Normal (Normal); Ketone-Dipstick 15 mg/dl (Negative); Leukocyte Esterase-Dipstick 25 /ul (Negative); Nitrite-Dipstick Negative (Negative); Occult Blood-Urine Negative /ul (Negative); Protein-Dipstick 15 mg/dl (Negative); Urine Bilirubin Dipstick Negative (Negative); Urine Clarity Clear (Clear); Urine Urobilinogen 4 mg/dl (Normal); Urine pH 6.5 (5.0 - 8.0)
[2022-04-13 09:59] LABS: White Blood Cells 0-5 SEEN /hpf (0-5)
--- NOTE | 2022-04-13 10:09 | NURSING ---
Sitter removed from room.
[2022-04-13] MEDS: Famotidine 20 MG Tablet 40 MG PO (11:59)
--- NOTE | 2022-04-13 15:42 | PN.HOSP_ITS ---
Subjective Subjective Doing well this morning, no issues after he woke up, last night he was restless and agitated and continued to be confused. This morning he was back to baseline and even his daughter had commented that he was back to his normal self. However this afternoon while walking with physical therapy he had another episode of his staring fit, there is no seizure-like activity but he just did not appear to be able to focus or communicate. There is no syncope strokelike activity either. Objective Data Objective Data Vital Signs: Vital Signs Temp Pulse Resp BP Pulse Ox O2 Del Method 98.0 F 49 L 18 114/59 L 99 Room Air 04/13/22 14:00 04/13/22 14:00 04/13/22 14:00 04/13/22 14:00 04/13/22 14:00 04/13/22 14:00 Oxygen Delivery Method Room Air Weight: 146 lb 8 oz Body Mass Index (BMI) 19.8 Intake & Output: Intake and Output for Last 24 Hours 04/12/22 04/13/22 04/14/22 03:59 03:59 03:59 Intake Total 420 / 420 Balance 420 / 420 Lab / Micro Data Result Diagrams: 04/13/22 06:27 04/13/22 06:27 Labs: Laboratory Results - last 24 hr 04/12/22 21:39: POC Glucose 113 H 04/12/22 21:40: WBC 9.0, RBC 4.33 L, Hgb 13.5, Hct 39.3 L, MCV 90.8, MCH 31.2, MCHC 34.4, RDW Std Deviation 44.1 H, RDW Coeff of Silvana 13.2, Plt Count 344, MPV 8.9, Immature Gran % (Auto) 0.400, Neut % (Auto) 64.7, Lymph % (Auto) 22.1, [place] % (Auto) 11.2 H, Eos % (Auto) 0.9, Baso % (Auto) 0.7, Absolute Neuts (auto) 5.8, Absolute Lymphs (auto) 1.98, Nucleated RBC % 0 04/12/22 21:40: PT 13.4, INR 1.1, APTT 30.1 04/12/22 21:40: Sodium 132 L, Potassium 3.9, Chloride 97 L, Carbon Dioxide 25.0, Anion Gap 10, BUN 16, Creatinine 0.85, Estim Creat Clear Calc 69.41, Est GFR (MDRD) Af Amer 112, Est GFR (MDRD) Non-Af 93, BUN/Creatinine Ratio 18.9, Glucose 120 H, Calcium 10.1, Troponin I High Sens 10 04/13/22 06:27: WBC 10.3, RBC 4.23 L, Hgb 13.1, Hct 38.5 L, MCV 91.0, MCH 31.0, MCHC 34.0, RDW Std Deviation 44.7 H, RDW Coeff of Silvana 13.4, Plt Count 341, MPV 9.4, Immature Gran % (Auto) 0.500, Neut % (Auto) 73.2 H, Lymph % (Auto) 14.8 L, [place] % (Auto) 10.5 H, Eos % (Auto) 0.4, Baso % (Auto) 0.6, Absolute Neuts (auto) 7.5, Absolute Lymphs (auto) 1.52, Nucleated RBC % 0 04/13/22 06:27: Sodium 131 L, Potassium 3.9, Chloride 98, Carbon Dioxide 24.0, Anion Gap 9, BUN 15, Creatinine 0.75, Estim Creat Clear Calc 55.38, Est GFR (MDRD) Af Amer 129, Est GFR (MDRD) Non-Af 106, BUN/Creatinine Ratio 20.0, Glucose 104, Calcium 9.1, Triglycerides 52, Cholesterol 155, LDL Cholesterol 75, VLDL Cholesterol 10, HDL Cholesterol 70 04/13/22 06:27: Hemoglobin A1c 5.4 04/13/22 06:52: POC Glucose 100 04/13/22 09:40: Urine Color Yellow, Urine Clarity Clear, Urine pH 6.5, Ur Specific [place] 1.010, Urine Protein 15 H, Urine Glucose (UA) Normal, Urine Ketones 15 H, Urine Occult Blood Negative, Urine Nitrite Negative, Urine Bilirubin Negative, Urine Urobilinogen 4 H, Ur Leukocyte Esterase 25 H, Urine RBC 0 SEEN, Urine WBC 0-5 SEEN, Ur Squamous Epith Cells 0 SEEN, Urine Bacteria 0 SEEN, Urine Mucus 0 SEEN Radiography Diagnostic Testing: Radiology Impression Brain CT 04/12/22 21:30 IMPRESSION: Chronic involutional changes of the brain. 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 There is no acute intracranial pathology. N.B. : The above Results were Read Back by Kaila Johnson MD to Dr. Adia MD, and understanding confirmed on 04/12/2022 21:45:32 (ET). Electronically Signed: Kaila Johnson MD at 21:46 EDT , ADDENDUM: 04/12/22 2153 IMPRESSION: Chronic involutional changes of the brain. 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 There is no acute intracranial pathology. N.B. : The above Results were Read Back by Kaila Johnson MD to Dr. Adia MD, and understanding confirmed on 04/12/2022 21:45:32 (ET). Electronically Signed: Kaila Johnson MD at 21:46 EDT , Head/Neck CTA 04/12/22 22:00 IMPRESSION: No significant arterial narrowing in the head or neck. Dolichoectatic basilar. Mild atherosclerosis. Degenerative changes cause moderate to severe spinal canal narrowing at C3-4 and high-grade foraminal narrowing on the left at C3-4, C4-5, and C5-C6. N.B. : The above Results were Read Back by Tommy Marquez MD to Dr. Adia MD, and understanding confirmed on 04/12/2022 22:39:45 (ET). Electronically Signed: Tommy Marquez MD at 22:41 EDT , ADDENDUM: 04/12/22 2248 IMPRESSION: No significant arterial narrowing in the head or neck. Dolichoectatic basilar. Mild atherosclerosis. Degenerative changes cause moderate to severe spinal canal narrowing at C3-4 and high-grade foraminal narrowing on the left at C3-4, C4-5, and C5-C6. N.B. : The above Results were Read Back by Tommy Marquez MD to Dr. Adia MD, and understanding confirmed on 04/12/2022 22:39:45 (ET). Electronically Signed: Tommy Marquez MD at 22:41 EDT Reading Location ID and State: [facility] / [place] Tel , Service support , Chest X-Ray 04/12/22 22:10 IMPRESSION: No acute cardiopulmonary disease. No significant interval change. Other nonacute findings as outlined above. Electronically Signed: Kaila Johnson MD at 22:28 EDT Reading Location ID and State: / , Service support , Echocardiogram 04/12/22 23:39 Interpretation Summary Normal LV size. Left ventricular systolic function is normal. The estimated ejection fraction is 55 %. Stage 2 diastolic dysfunction. Mild (1+) aortic valve insufficiency. Previous negative bubble noted in 2019. No obvious cardioembolic source noted Ordering Physician: Josh Lyle Referring Physician: Leobardo Heredia Performed By: Maddie Carballo, KHADRACS, RVT Brain MRI 04/13/22 09:00 IMPRESSION: 1. Involutional changes of the brain, as described above. 2. No acute infarct. Electronically Signed: Doug Mayes MD at 15:33 EDT , Physical Exam Narrative General: Alert, Oriented x3, Cooperative, No apparent distress HEENT: Atraumatic, PERRLA, EOMI, Normocephalic Oral: Moist Mucosa Neck: Supple, No JVD Lungs: Clear to auscultation, Normal air movement, No rhonchi, No wheeze, No rales Cardiovascular: Regular rate, Regular Rhythm, Normal S1, Normal S2, No murmurs Abdomen: Soft, Non Tender, Non-Distended, No Hepato-splenomegaly Extremities: No edema, Capillary Refill Less than 3 Seconds Skin: No rashes, No breakdown Musculoskeletal: No Tenderness to Palpation of Joints or Extremities Neurological: Cranial nerves II-XII grossly intact, Motor Exam 5/5 strength throughout, Sensory exam intact to light touch and pain Psych/Mental Status: Normal Affect, Appropriate Assessment & Plan Assessment/Plan (1) Stroke-like symptoms: PLAN: Plan 1. Altered mental status ? Unclear as to the etiology at the moment, this is unlikely to be a stroke, and MRI was negative ? Echo was unremarkable ? CT of the head was also normal ? Chest x-ray did not show pneumonia and UA was negative for UTI ? Will obtain an EEG 2. CAD status post CABG/HTN/HLD/sinus bradycardia ? Blood pressure is stable ? His heart rate remains in the 40s to 50s ? Can restart his home blood pressure medication however at the moment his blood pressure does appear to be fairly well controlled ? Continue with Lipitor and aspirin 3. Hypothyroidism ? Stable ? Continue with Synthroid 4. BPH ? Stable ? Continue with Flomax 5. History of dysphagia ? ENT scoped him over the weekend in their office and they did not notice an obstruction ? He tends to have an issue with meat ? Daughter says that he was started on Pepcid over the weekend which we will continue here DVT: SCDs Charges/Coding Visit Charges OBSV E&M: 12826 Subsequent observation care L2
[2022-04-13] MEDS: Acetaminophen 325 MG Tablet 650 MG PO (19:04)
[2022-04-13] MEDS: Atorvastatin Calcium 80 MG Tablet PO (21:37)
[2022-04-14] VITALS (9 sets, daily range): BP systolic 119–148; BP diastolic 55–70; PULSE 46–95; RESP 16–18; TEMP 36.4–36.9; O2SAT 96–99; BMI 19.8
[2022-04-14] MEDS: Levothyroxine 150 MCG Tablet PO (05:20)
[2022-04-14 06:29] LABS: Absolute Lymphocyte Count 1.38 X10^3/uL (0.83-4.51); Absolute Neutrophil Count 7.5 X10^3/uL (2.0-7.7); Basophil# 0.07 X10^3/uL; Basophil% 0.7 % (0-1); Eosinophil# 0.04 X10^3/uL; Eosinophils% 0.4 % (0-5); Hematocrit 37.7 % (40-54); Hemoglobin 13.3 g/dL (13.0-16.5); Lymphocyte # 1.38 X10^3/ul (0.83-4.51); Lymphocyte % 13.9 % (19-41); Mean Corp Hgb Conc 35.3 g/dL (32-36); Mean Corpuscular Hgb 32.2 pg (27.0-32.0); Mean Corpuscular Volume 91.3 fL (80-94); Mean Platelet Vol. 9.3 fl (6.2-12.0); Monocyte# 0.94 X10^3/uL; Monocyte% 9.5 % (0-10); NRBC Flagged by Analyzer 0 % (0-5); Neutrophil # 7.47 X10^3/uL (2.7-7.7); Neutrophil % 75.2 % (47-70); Platelet Count 308 K/mm3 (150-450); RBC Distribution Width CV 13.5 % (11.6-14.6); RBC Distribution Width SD 45.4 fl (35.1-43.9); Red Blood Count 4.13 M/mm3 (4.6-6.2); White Blood Count 9.9 K/mm3 (4.4-11.0)
[2022-04-14 06:56] LABS: Anion Gap 8 (5-15); BUN 18 mg/dL (7-18); Calcium,Total 9.1 mg/dL (8.5-10.1); Chloride 98 mmol/L (98-107); Creatinine, Serum 0.75 mg/dL (0.70-1.30); EST Glomerular Filtration Rate 107 mL/min (>60); Est Glom Filt Rate - Afr Amer 129 mL/min (>60); Estimated Creatinine Clearance 55.38 ml/min; Glucose 107 mg/dL (74-106); Potassium 4.1 mmol/L (3.5-5.1); Sodium Level 131 mmol/L (136-145)
--- NOTE | 2022-04-14 08:20 | TELEMED_ITS ---
[facility] has confirmed receipt of a request for visit. This document confirms receipt of the order initiating the consult. To find the results of the consultation, please view the patient's reports for the scanned Telemed Consult.
[2022-04-14] MEDS: Tamsulosin HCl 0.4 MG Capsule PO (08:32)
[2022-04-14] MEDS: Aspirin E.C. 81 MG Tablet PO (08:32)
--- NOTE | 2022-04-14 09:11 | PCM.PN.HOSP ---
Subjective Subjective Doing well, and back to normal however he did have an episode early this morning. EEG was done this morning Objective Data Objective Data Vital Signs: Vital Signs Temp Pulse Resp BP Pulse Ox O2 Del Method 98.5 F 95 18 121/55 H 98 Room Air 04/14/22 03:25 04/14/22 06:51 04/14/22 03:25 04/14/22 03:25 04/14/22 07:20 04/14/22 08:30 Oxygen Delivery Method Room Air Weight: 146 lb 8 oz Body Mass Index (BMI) 19.8 Intake & Output: Intake and Output for Last 24 Hours 04/13/22 04/14/22 04/15/22 03:59 03:59 03:59 Intake Total 860 / 860 200 / 200 Balance 860 / 860 200 / 200 Lab / Micro Data Result Diagrams: 04/14/22 05:58 04/14/22 05:58 Labs: Laboratory Results - last 24 hr 04/13/22 09:40: Urine Color Yellow, Urine Clarity Clear, Urine pH 6.5, Ur Specific [place] 1.010, Urine Protein 15 H, Urine Glucose (UA) Normal, Urine Ketones 15 H, Urine Occult Blood Negative, Urine Nitrite Negative, Urine Bilirubin Negative, Urine Urobilinogen 4 H, Ur Leukocyte Esterase 25 H, Urine RBC 0 SEEN, Urine WBC 0-5 SEEN, Ur Squamous Epith Cells 0 SEEN, Urine Bacteria 0 SEEN, Urine Mucus 0 SEEN 04/14/22 05:58: WBC 9.9, RBC 4.13 L, Hgb 13.3, Hct 37.7 L, MCV 91.3, MCH 32.2 H, MCHC 35.3, RDW Std Deviation 45.4 H, RDW Coeff of Silvana 13.5, Plt Count 308, MPV 9.3, Immature Gran % (Auto) 0.300, Neut % (Auto) 75.2 H, Lymph % (Auto) 13.9 L, [place] % (Auto) 9.5, Eos % (Auto) 0.4, Baso % (Auto) 0.7, Absolute Neuts (auto) 7.5, Absolute Lymphs (auto) 1.38, Nucleated RBC % 0 04/14/22 05:58: Sodium 131 L, Potassium 4.1, Chloride 98, Carbon Dioxide 25.0, Anion Gap 8, BUN 18, Creatinine 0.75, Estim Creat Clear Calc 55.38, Est GFR (MDRD) Af Amer 129, Est GFR (MDRD) Non-Af 107, BUN/Creatinine Ratio 24.0 H, Glucose 107 H, Calcium 9.1 Radiography Diagnostic Testing: Radiology Impression Echocardiogram 04/12/22 23:39 Interpretation Summary Normal LV size. Left ventricular systolic function is normal. The estimated ejection fraction is 55 %. Stage 2 diastolic dysfunction. Mild (1+) aortic valve insufficiency. Previous negative bubble noted in 2018. No obvious cardioembolic source noted Ordering Physician: Josh Lyle Referring Physician: Leobardo Heredia Performed By: Maddie Carballo, KHADRACS, RVT Brain MRI 04/13/22 09:00 IMPRESSION: 1. Involutional changes of the brain, as described above. 2. No acute infarct. Electronically Signed: Doug Mayes MD at 15:33 EDT Reading Location ID and State: [address] [place] [address] , Service support , Physical Exam Narrative General: Alert, Oriented x3, Cooperative, No apparent distress HEENT: Atraumatic, PERRLA, EOMI, Normocephalic Oral: Moist Mucosa Neck: Supple, No JVD Lungs: Clear to auscultation, Normal air movement, No rhonchi, No wheeze, No rales Cardiovascular: Regular rate, Regular Rhythm, Normal S1, Normal S2, No murmurs Abdomen: Soft, Non Tender, Non-Distended, No Hepato-splenomegaly Extremities: No edema, Capillary Refill Less than 3 Seconds Skin: No rashes, No breakdown Musculoskeletal: No Tenderness to Palpation of Joints or Extremities Neurological: Cranial nerves II-XII grossly intact, Motor Exam 5/5 strength throughout, Sensory exam intact to light touch and pain Psych/Mental Status: Normal Affect, Appropriate Assessment & Plan Assessment/Plan (1) Stroke-like symptoms: PLAN: Plan 1. Altered mental status ? Unclear as to the etiology at the moment, this is unlikely to be a stroke, and MRI was negative ? Echo was unremarkable ? CT of the head was also normal ? Chest x-ray did not show pneumonia and UA was negative for UTI ? Will obtain an EEG, my evaluation of the event that I witnessed yesterday was that this could potentially be an absence seizure, once the EEG is read we will have a phone conversation with neurology 2. CAD status post CABG/HTN/HLD/sinus bradycardia ? Blood pressure is stable ? His heart rate remains in the 40s to 50s ? Can restart his home blood pressure medication however at the moment his blood pressure does appear to be fairly well controlled ? Continue with Lipitor and aspirin 3. Hypothyroidism ? Stable ? Continue with Synthroid 4. BPH ? Stable ? Continue with Flomax 5. History of dysphagia ? ENT scoped him over the weekend in their office and they did not notice an obstruction ? He tends to have an issue with meat ? Daughter says that he was started on Pepcid over the weekend which we will continue here DVT: SCDs Charges/Coding Visit Charges Inpatient E&M: 82590 Subs Hosp L2
[2022-04-14] MEDS: Famotidine 20 MG Tablet 40 MG PO (09:28)
[2022-04-14] MEDS: Lisinopril 10 MG Tablet PO (09:28)
[2022-04-14] MEDS: hydroCHLOROthiazide 12.5mg 12.5 MG PO (09:29)
[2022-04-14] MEDS: Ondansetron 4 MG/2 ML Vial IV (10:20)
[2022-04-14] MEDS: 0.9% Saline Lock 10 ML Syringe IV (10:21)
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
--- NOTE | 2022-04-14 11:53 | ST.MBS ---
Modified Barium Swallow - Patient Information Study Date: 04/14/22 Study Time: 14:30 Direct Billable Minutes: 90 Total Minutes procedure & reportin Diagnosis: Stroke-like symptoms (R29.90) Referring Physician: Ziyad Mendoza Reason for Referral: Objectively assess swallow function, risk for aspiration, and determine recommendations for least restrictive diet textures and compensatory strategies to improve safety of swallow. Medical History: Ed Fior is a 82 M with a significant history of CAD status post CABG, hypothyroidism, sinus bradycardia, and hyperlipidemia (SEE H&P for full PMH) who presented to [facility] ED with stroke-like symptoms 04/12/2022. Prior to admission, the patient had been in jainism. He began to stare and was unable to talk. He was answering questions by nodding. In the ED his aphasia and staring resolved. Reportedly patient had 1 episode of vomiting prior to coming to ED and another episode of vomiting at the ED. Pt admitted for CVA work up. Brain MRI revealed no acute infarcts. Pt had more episodes of staring on 04/13/2022. Pt suspected for seizures and is awaiting results from EEG (04/14/2022). He was referred for speech consult 04/13/2022 for concern for swallowing difficulty. Pt was unable to be evaluated 04/13/2022 and was recommended NPO due to poor alertness. BSE completed 04/14/2022 and patient was observed to have s/s of aspiration with liquids and applesauce. He complained of sensation of pharyngeal retention of cookie. He was referred for MBSS to objectively assess swallow function and aspiration risk. The patient additionally reported to COATING MACHINE HELPER during BSE that he has had swallowing difficulty for a while, and that it has worsened in the past couple months. He reports trouble swallowing meats. He has had 40lbs of weight loss, but could not tell COATING MACHINE HELPER over what time frame he experienced the weight loss. He feels foods are hard to clear and that they become stuck. When asked where foods become stuck, pt points to either his lower chest and/or his throat. He is planned for OP barium esophagram 04/15/2022. Current Diet Ordered: Easy to Chew / Thin - Sup. for all food Dentition: Upper Dentures, Lower Dentures Respiratory Status: Oxygenating on Room Air - Penetration-Aspiration Scale Penetration-Aspiration Scale: OBJECTIVE ASSESSMENT OF SWALLOW FUNCTION (QUANTITATIVE ? PER TRIAL): PENETRATION / ASPIRATION SCALE (OLIVO): 1 = does not enter airway 2 = enters airway/above vocal folds/ejected 3 = enters airway/above vocal folds/not ejected 4 = enters airway/contacts vocal folds/ejected 5 = enters airway/contacts vocal folds/not ejected 6 = enters airway/below vocal folds/ejected 7 = enters airway/below vocal folds/not ejected despite effort 8 = enters airway/below vocal folds/no effort VIDEOFLOROSCOPIC SCALE SCORE (OLIVO): Grade I = aspiration of material that has penetrated into the laryngeal vestibule, intact cough reflex Grade II = aspiration < 10 % of the bolus, intact cough reflex Grade III = aspiration of < 10 % of the bolus, reduced cough reflex or aspiration of > 10 % of the bolus, intact cough reflex Grade IV = aspiration of > 10 % of the bolus, reduced cough reflex - Penetration-Aspiration Scale Score Thin Liquid via teaspoon Result: 1= does not enter airway Thin Liquid via teaspoon Trial 2 Result: 1= does not enter airway Thin Liquid via large single sip from cup Result: 2= enter airway/above vocal folds/ejected Thin Liquid via sequential sips from cup with esophageal screen Result: 3= enters airways/above vocal folds/not ejected Comment: Good esophageal clearance [place] Thick Liquid via small single sip from cup Result: 2= enter airway/above vocal folds/ejected Honey Thick Liquid via small single sip from cup Result: 1= does not enter airway Pudding via teaspoon Result: 1= does not enter airway Thin Liquid via single sip from straw Result: 1= does not enter airway 1/2 Cookie with esophageal screen Result: 1= does not enter airway Comment: Esophageal retention throughout mid and distal esophagus - good clearance with use of liquid wash. Thin Liquid via small single sip from cup with esophageal screen Result: 1= does not enter airway - Oral Phase Labial Seal: No Labial Escape Tongue Control During Bolus Hold: Posterior escape of greater than half of bolus Bolus Preparation/Mastication: Slow prolonged chewing/mashing with complete recollection Bolus Transport/Lingual Motion: Delayed initiation of tongue motion Oral Residue: Residue collection on oral structures - Pharyngeal Phase Initiation of Pharyngeal Swallow: Bolus head in pyriforms Soft Palate Elevation: No bolus between soft palate and pharyngeal wall Laryngeal Elevation: Partial superior movement thyroid cart/partial apprx aryt-epig petiole Anterior Hyoid Excursion: Partial anterior movement Epiglottic Movement: Partial inversion Laryngeal Vestibule Closure at Height of Swallow: Incomplete; narrow column of air/contrast in laryngeal vestibule Pharyngeal Stripping Wave: Absent Pharyngoesophageal Segment Opening: Parital distension and partial duration; parital obstruction of flow Tongue Base Retraction: Wide column of contrast between tongue base & post. pharyngeal wall Pharyngeal Residue: Majority of contrast within or on pharyngeal structures - >1/2 of cookie in vallecula after initial swallow - Esophageal Phase Esophageal Clearance: Esophageal retention w/ retrograde flow below pharyngoesophageal seg. - Treatment Strategies Effects of treatment strategies attemped:: Liquid wash = effective. Multiple swallows = effective. Decreased bolus size/rate = effective. - Diagnosis/Impression Diagnosis: Mild-mod oropharyngeal dysphagia (R13.12), Esophageal dysphagia (R13.14) Impression: The oral phase is primarily marked by... -Decreased bolus control resulting in premature posterior loss of large liquid boluses to the pyriforms prior to swallow onset. -Prolonged, but adequate mastication. -Mild-moderate oral residue. Pt required piecemeal deglutition to clear 1/2 cookie bolus and large thin liquid boluses. The pharyngeal phase is primarily marked by... -Decreased airway closure during the swallow due to decreased laryngeal elevation and anterior hyoid excursion. -Mild to moderate pharyngeal residue due to decreased pharyngeal contraction, tongue base retraction, and duration of UES opening. Pharyngeal residue increased with thicker viscosities. >1/2 of cookie bolus remained in the vallecula after the initial swallow. Multiple swallows were effective in clearing majority of the residue. -Trace laryngeal penetration of thin and nectar thick liquid by cup, which fully ejected. Sequential sips of thin liquids did not reliably eject from the laryngeal vestibule with trace residue remaining after the swallow, increasing risk for aspiration. However, no aspiration was observed during the study. The esophageal phase is primarily marked by... -Significant esophageal retention of cookie in mid and distal esophagus, which effectively cleared with use of thin liquid wash. - Recommendations Diet: Thin Liquids - Easy to Chew Textures Compensatory Strategies: Small Bites, Small Sips, Slow Rate, Multiple Swallows - slow rate to allow time for multiple swallows as needed, Alternate bites/solids and sips/liquids - 1:1 ratio, Sitting upright, Remain sitting upright for 30 minutes after PO intake, Assist with verbal cues to use recommended strategies Supervision: 1:1 Close Supervision - Family able to provide supervision for all meals upon discharge home Recommend Repeat Modified Barium Swallow: TBD Comment: The oral phase is primarily marked by... -Decreased bolus control with resulting premature posterior loss of large liquid boluses to the pyriforms prior to swallow onset. -Prolonged, but adequate mastication. -Mild-moderate oral residue, most notable with large bites/sips. Need for Skilled Speech Therapy Services: Yes Comment: Will recommend the patient for dysphagia therapy to address mild-moderate deficits in oropharyngeal swallow function. Will recommend the patient for oropharyngeal strengthening to improve lingual strength, tongue base retraction, hyolaryngeal elevation & excursion, and pharyngeal contraction (consider Marci, effortful, CTAR, lingual resistance). The patient would benefit from thorough education regarding diet recommendations and recommended compensatory strategies. Recommended Referrals: GI Consult - Proceed with barium esophagram on 04/15/2022. Esophageal retention of cookie did clear with liquid wash, but will recommend GI consult to address esophageal retention of solids. Education Completed: 1. Described result of evaluation., 4. Family/caregivers understand evaluation & agree w/ goals & tx plan., 7. Pt requires further education on strategies & risks. - Status Active ST Patient: Active - Contact Information [facility] Speech Therapy:: Daisy Dejesus M.A. [facility]-COATING MACHINE HELPER Speech-Language Pathologist [facility] [address] [place] [address] [phone] 04/14/22 11:56
[2022-04-14] MEDS: Ensure Plus High Protein 120 ML LIQUID PO ×2 (13:23→18:00)
[2022-04-14 17:55] LABS: Vitamin B12 561 pg/mL (211-911)
[2022-04-14 18:01] LABS: Thyroid Stim Hormone (TSH) 0.42 uIU/mL (0.358-3.74)
[2022-04-14] MEDS: MELATONIN 3 MG TABLET PO (23:26)
[2022-04-15] VITALS (8 sets, daily range): BP systolic 130–151; BP diastolic 54–66; PULSE 43–63; RESP 14–16; TEMP 36.3–36.6; O2SAT 97–100; BMI 19.8
[2022-04-15] MEDS: Levothyroxine 150 MCG Tablet PO (06:05)
[2022-04-15] MEDS: Ensure Plus High Protein 120 ML LIQUID PO ×2 (09:12→18:12)
[2022-04-15] MEDS: Tamsulosin HCl 0.4 MG Capsule PO (09:17)
[2022-04-15] MEDS: hydroCHLOROthiazide 12.5mg 12.5 MG PO (09:17)
[2022-04-15] MEDS: Aspirin E.C. 81 MG Tablet PO (09:17)
[2022-04-15] MEDS: Lisinopril 10 MG Tablet PO (09:18)
[2022-04-15] MEDS: Famotidine 20 MG Tablet 40 MG PO (09:18)
--- NOTE | 2022-04-15 09:58 | CASEMGMT ---
ALICE PRITCHETT has relayed to SW that there are some apparent issues between patient and his . Patient did not elaborate with ALICE PRITCHETT the details. SW attempted to meet with patient this am as his was not present. Patient was sleeping, but after saying his name a few times patient did wake up. ARIS introduced self and role at [facility]. SW mentioned to patient that SW was informed there were some concerns with patient's . Patient first, stared at then he closed his eyes and turned his head falling back asleep. ARIS will continue to monitor case. Margot Landaverde STUDENT DEVELOPMENT ADVISOR FRANKY
--- NOTE | 2022-04-15 10:53 | NURSING ---
Speech therapy notified to see patient for another dysphagia screening today, 04/15/22.
--- NOTE | 2022-04-15 11:06 | MRI_ITS ---
STUDY: MR Brain WO/W Contrast 04/15/2022 4:35 PM REASON FOR EXAM: Male, 82 years old. Possible seizure COMPARISON: 04.13.22 TECHNIQUE: Standardized multiplanar fat and water weighted pulse sequences were obtained. MR Brain WO/W Contrast 13cc IV Dotarem FINDINGS: There is moderate cerebral atrophy with widening of the extra-axial spaces and ventricular dilatation. Normal white matter tracts of the supratentorial brain. There is mild prominence of the vermian folia, consistent with atrophy of the vermis. The cerebellar hemispheres are normal. Normal bilateral basal ganglia. Normal thalami. There is no extra-axial fluid accumulation. Normal flow voids within the major intracranial circulation suggesting patency by spin echo criteria. Normal sella turcica, pituitary gland, infundibular stalk, optic chiasm and hypothalamus. Normal tectal plate and pineal gland. Normal midbrain, sunil and medulla. Normal basal cisterns. Normal bilateral temporal bones. Normal bilateral internal auditory canals. No demonstrated orbital abnormality, within the constraints of a routine brain study. Normal visualized paranasal sinuses. Normal calvarium and skull base. Normal visualized soft tissue structures. Normal visualized upper cervical spine. Aspect score 10 MRI/Brain W/WO Contrast IMPRESSION: (NOT LISTED IN ORDER OF SIGNIFICANCE) There are no acute intracranial findings. Electronically Signed: Manish Tran MD at 16:37 EDT ,
--- NOTE | 2022-04-15 11:38 | PN.HOSP_ITS ---
Subjective Subjective Doing well, no issues overnight. He continues to have intermittent episodes. EEG was done and read yesterday with nonspecific slowing but no signs of seizure-like activity. Objective Data Objective Data Vital Signs: Vital Signs Temp Pulse Resp BP Pulse Ox O2 Del Method 97.8 F 63 16 149/66 H 100 Room Air 04/15/22 08:55 04/15/22 08:55 04/15/22 08:55 04/15/22 08:55 04/15/22 08:55 04/15/22 09:05 Oxygen Delivery Method Room Air Weight: 146 lb 7.99 oz Body Mass Index (BMI) 19.8 Intake & Output: Intake and Output for Last 24 Hours 04/14/22 04/15/22 04/16/22 03:59 03:59 03:59 Intake Total 860 / 860 1040 / 1040 Balance 860 / 860 1040 / 1040 Medical Nutrition Assessment Dietitian: Malnutrition Criteria Met Start: 04/14/22 1 0:41 Freq: Status: Active Protocol: Document 04/14/22 10:41 AG (Rec: 04/14/22 10:41 [id number]) Nutrition Malnutrition Evidence of Malnutrition Exists Yes Malnutrition (severe): Chronic Evidenced By Suboptimal Energy Intake ( Severe),Physical Changes ( Severe) Clinical Problem Chronic Disease or Condition Related Malnutrition Etiology severe, chronic malnutrition related to inadequate energy intake d/t swallowing difficulties Signs/Symptoms as evidenced by estimated PO intake meeting <75% of etimated energy needs >3 months; severe muscle wasting/ fat loss evident per physical exam in orbital, temporal, clavicle, acromion areas; BMI 19.9 Status Active Problem Recommendation Dietitian Recommendations/Changes continue regular diet- texture /consistency per ROOF BOLTER; will add 120mL ensure plus high protein 4x/day w/ medpass for additional calories/protein if consumed given signs/symptoms of malnutrition Lab / Micro Data Result Diagrams: 04/14/22 05:58 04/14/22 05:58 Labs: Laboratory Results - last 24 hr 04/14/22 17:00: TSH 0.42 04/14/22 17:00: Vitamin B12 561 Physical Exam Narrative General: Alert, Oriented x3, Cooperative, No apparent distress HEENT: Atraumatic, PERRLA, EOMI, Normocephalic Oral: Moist Mucosa Neck: Supple, No JVD Lungs: Clear to auscultation, Normal air movement, No rhonchi, No wheeze, No rales Cardiovascular: Regular rate, Regular Rhythm, Normal S1, Normal S2, No murmurs Abdomen: Soft, Non Tender, Non-Distended, No Hepato-splenomegaly Extremities: No edema, Capillary Refill Less than 3 Seconds Skin: No rashes, No breakdown Musculoskeletal: No Tenderness to Palpation of Joints or Extremities Neurological: Cranial nerves II-XII grossly intact, Motor Exam 5/5 strength throughout, Sensory exam intact to light touch and pain Psych/Mental Status: Normal Affect, Appropriate Assessment & Plan Assessment/Plan (1) Stroke-like symptoms: PLAN: Plan 1. Altered mental status ? Unclear as to the etiology at the moment, this is unlikely to be a stroke, and MRI was negative ? Echo was unremarkable ? CT of the head was also normal ? Chest x-ray did not show pneumonia and UA was negative for UTI ? EEG demonstrated nonspecific slowing ? Had a phone consult with neurology and they agreed with the possibility of a complex partial seizure. They feel like the next course of action would be to obtain an MRI of the brain with and without contrast to visualize any structural abnormality and then to potentially transfer for 24-hour EEG monitoring. This was discussed with the daughter who does not want him transferred at all for 24- hour EEG monitoring despite the discussion of being able to obtain an accurate diagnosis. She would prefer to start treatment and see if the seizures resolved and follow-up as an outpatient. Therefore we will also load him with 1000 g of Keppra and then start him on oral 750 mg of Keppra twice daily. 2. CAD status post CABG/HTN/HLD/sinus bradycardia ? Blood pressure is stable ? His heart rate remains in the 40s to 50s ? Can restart his home blood pressure medication however at the moment his blood pressure does appear to be fairly well controlled ? Continue with Lipitor and aspirin 3. Hypothyroidism ? Stable ? Continue with Synthroid 4. BPH ? Stable ? Continue with Flomax 5. History of dysphagia ? ENT scoped him over the weekend in their office and they did not notice an obstruction ? He tends to have an issue with meat ? Daughter says that he was started on Pepcid over the weekend which we will continue here DVT: SCDs Charges/Coding Visit Charges Inpatient E&M: 50386 Subs Hosp L2
[2022-04-15] MEDS: levETIRAcetam IV 1,000 MG/100 ML BAG 400 MG IV (12:50)
[2022-04-15] MEDS: 0.9% Saline Lock 10 ML Syringe IV (12:51)
[2022-04-15] MEDS: Acetaminophen 325 MG Tablet 650 MG PO (18:13)
--- NOTE | 2022-04-15 19:30 | NURSING ---
pt has sitter in room and is uncooperative most times and will not keep tele box on. Tele strip unable to be done at this time. WIll attempt later.
[2022-04-15] MEDS: Atorvastatin Calcium 80 MG Tablet PO (21:12)
[2022-04-15] MEDS: levETIRAcetam 750 MG Tablet PO (21:12)
[2022-04-15] MEDS: MELATONIN 3 MG TABLET PO (21:15)
[2022-04-16 03:20] VITALS: BP 130/71; PULSE 99; RESP 16; TEMP 36.8; O2SAT 99
[2022-04-16] MEDS: Levothyroxine 150 MCG Tablet PO (07:01)
[2022-04-16 08:50] VITALS: BP 151/70; PULSE 51; RESP 15; TEMP 36.4; O2SAT 98
[2022-04-16] MEDS: Ensure Plus High Protein 120 ML LIQUID PO (09:53)
[2022-04-16] MEDS: levETIRAcetam 750 MG Tablet PO ×2 (09:55→21:53)
[2022-04-16] MEDS: Aspirin E.C. 81 MG Tablet PO (09:55)
--- NOTE | 2022-04-16 10:23 | PCM.PN.HOSP ---
Subjective Subjective Appears to be having episodes of sundowning now repeated MRI was negative. This morning he is very confused, he knows where he is who he is and what year it is but he says God is going to give him a new brain and he starts waving at the TV and when asked him why he was living at the TV and he said that it is because asked which are supposed to do after we were gifted television. Objective Data Objective Data Vital Signs: Vital Signs Temp Pulse Resp BP Pulse Ox O2 Del Method 97.5 F L 51 L 15 151/70 H 98 Room Air 04/16/22 08:50 04/16/22 08:50 04/16/22 08:50 04/16/22 08:50 04/16/22 08:50 04/16/22 08:55 Oxygen Delivery Method Room Air Weight: 146 lb 7.99 oz Body Mass Index (BMI) 19.8 Intake & Output: Intake and Output for Last 24 Hours 04/15/22 04/16/22 04/17/22 03:59 03:59 03:59 Intake Total 1040 / 1040 112.5 / 112.5 Balance 1040 / 1040 112.5 / 112.5 Medical Nutrition Assessment Dietitian: Malnutrition Criteria Met Start: 04/14/22 10:41 Freq: Status: Active Protocol: Document 04/14/22 10:41 AG (Rec: 04/14/22 10:41 [id number]) Nutrition Malnutrition Evidence of Malnutrition Exists Yes Malnutrition (severe): Chronic Evidenced By Suboptimal Energy Intake ( Severe),Physical Changes ( Severe) Clinical Problem Chronic Disease or Condition Related Malnutrition Etiology severe, chronic malnutrition related to inadequate energy intake d/t swallowing difficulties Signs/Symptoms as evidenced by estimated PO intake meeting <75% of etimated energy needs >3 months; severe muscle wasting/ fat loss evident per physical exam in orbital, temporal, clavicle, acromion areas; BMI 19.9 Status Active Problem Recommendation Dietitian Recommendations/Changes continue regular diet- texture /consistency per BELT PRESS OPERATOR; will add 120mL ensure plus high protein 4x/day w/ medpass for additional calories/protein if consumed given signs/symptoms of malnutrition Lab / Micro Data Result Diagrams: 04/14/22 05:58 04/14/22 05:58 Radiography Diagnostic Testing: Radiology Impression Brain MRI 04/15/22 11:06 IMPRESSION: (NOT LISTED IN ORDER OF SIGNIFICANCE) There are no acute intracranial findings. Electronically Signed: Manish Tran MD at 16:37 EDT , Physical Exam Narrative General: Alert, Oriented x3, Cooperative, No apparent distress, confused HEENT: Atraumatic, PERRLA, EOMI, Normocephalic Oral: Moist Mucosa Neck: Supple, No JVD Lungs: Clear to auscultation, Normal air movement, No rhonchi, No wheeze, No rales Cardiovascular: Regular rate, Regular Rhythm, Normal S1, Normal S2, No murmurs Abdomen: Soft, Non Tender, Non-Distended, No Hepato-splenomegaly Extremities: No edema, Capillary Refill Less than 3 Seconds Skin: No rashes, No breakdown Musculoskeletal: No Tenderness to Palpation of Joints or Extremities Neurological: Cranial nerves II-XII grossly intact, Motor Exam 5/5 strength throughout, Sensory exam intact to light touch and pain Psych/Mental Status: Normal Affect, confused with abnormal thought content Assessment & Plan Assessment/Plan (1) Stroke-like symptoms: PLAN: Plan 1. Altered mental status ? Unclear as to the etiology at the moment, this is unlikely to be a stroke, and MRI was negative ? Echo was unremarkable ? CT of the head was also normal ? Chest x-ray did not show pneumonia and UA was negative for UTI ? EEG demonstrated nonspecific slowing ? Had a phone consult with neurology and they agreed with the possibility of a complex partial seizure. They feel like the next course of action would be to obtain an MRI of the brain with and without contrast to visualize any structural abnormality and then to potentially transfer for 24-hour EEG monitoring. He was given a loading dose of Keppra and started on twice daily dosing ? MRI with and without contrast was also normal ? Given his continued confusion and his abnormal thought process, I do recommend transfer to tertiary care center for LP, 24-hour EEG monitoring and direct neurological evaluation and supervision. Unsure as to why the daughter is resistant to transfer however it is my strong recommendation so I am awaiting for her to pick a tertiary care center so I can get the process started. 2. CAD status post CABG/HTN/HLD/sinus bradycardia ? Blood pressure is stable ? His heart rate remains in the 40s to 50s ? Can restart his home blood pressure medication however at the moment his blood pressure does appear to be fairly well controlled ? Continue with Lipitor and aspirin 3. Hypothyroidism ? Stable ? Continue with Synthroid 4. BPH ? Stable ? Continue with Flomax 5. History of dysphagia ? ENT scoped him over the weekend in their office and they did not notice an obstruction ? He tends to have an issue with meat he did have a modified barium swallow while here recommendation is thin liquids with easy to to chew textures, and one-to-one close supervision ? Daughter says that he was started on Pepcid over the weekend which we will continue here DVT: SCDs Charges/Coding Visit Charges Inpatient E&M: 70787 Subs Hosp L2
--- NOTE | 2022-04-16 10:29 | CASEMGMT ---
Patient has a Healthcare Power of Stock Sheets Cleaner Inspector and Healthcare Living Will per RN CM assessment. They are not on file at [facility]. Patient indicated he is working on changing documents with his health care attorney. Margot WILKINS
[2022-04-16 11:26] LABS: Absolute Lymphocyte Count 1.85 X10^3/uL (0.83-4.51); Absolute Neutrophil Count 6.2 X10^3/uL (2.0-7.7); Basophil# 0.08 X10^3/uL; Basophil% 0.9 % (0-1); Eosinophil# 0.08 X10^3/uL; Eosinophils% 0.9 % (0-5); Hematocrit 42.7 % (40-54); Hemoglobin 14.8 g/dL (13.0-16.5); Lymphocyte # 1.85 X10^3/ul (0.83-4.51); Lymphocyte % 20.3 % (19-41); Mean Corp Hgb Conc 34.7 g/dL (32-36); Mean Corpuscular Hgb 31.2 pg (27.0-32.0); Mean Corpuscular Volume 89.9 fL (80-94); Mean Platelet Vol. 9.2 fl (6.2-12.0); Monocyte# 0.89 X10^3/uL; Monocyte% 9.7 % (0-10); NRBC Flagged by Analyzer 0 % (0-5); Neutrophil # 6.18 X10^3/uL (2.7-7.7); Neutrophil % 67.7 % (47-70); Platelet Count 382 K/mm3 (150-450); RBC Distribution Width SD 43.1 fl (35.1-43.9); Red Blood Count 4.75 M/mm3 (4.6-6.2); White Blood Count 9.1 K/mm3 (4.4-11.0)
[2022-04-16] MEDS: Tamsulosin HCl 0.4 MG Capsule PO (12:13)
[2022-04-16] MEDS: Famotidine 20 MG Tablet 40 MG PO (12:14)
[2022-04-16] MEDS: hydroCHLOROthiazide 12.5mg 12.5 MG PO (12:14)
[2022-04-16] MEDS: Lisinopril 10 MG Tablet PO (12:14)
[2022-04-16 12:41] LABS: ALB/GLOB Ratio 1.2 RATIO (0.9-2.4); AST(SGOT) 19 U/L (15-37); Alanine Aminotransfer ALT/SGPT 24 U/L (16-61); Alkaline Phosphatase 35 U/L (45-117); Anion Gap 8 (5-15); BUN 13 mg/dL (7-18); BUN/Creat Ratio 15.7 RATIO (10-20); Calcium,Total 9.5 mg/dL (8.5-10.1); Chloride 95 mmol/L (98-107); Creatinine, Serum 0.83 mg/dL (0.70-1.30); EST Glomerular Filtration Rate 95 mL/min (>60); Est Glom Filt Rate - Afr Amer 115 mL/min (>60); Estimated Creatinine Clearance 66.72 ml/min; Globulin 3.4 g/dL (2.2-4.2); Glucose 111 mg/dL (74-106); Potassium 3.4 mmol/L (3.5-5.1); Protein, Total 7.4 g/dL (6.4-8.2); Sodium Level 130 mmol/L (136-145)
--- NOTE | 2022-04-16 13:02 | CASEMGMT ---
This RN CM was advised that plan is now to transfer pt to tertiary facility and that daughter has questions for RN CM regarding transfer. This RN CM to room to speak with daughter and she requests to speak in hallway. Per daughter, she states she was given choice to transfer pt or take him home and daughter then states that she does not want pt transferred at this time. Daughter states that she has a neurology appt scheduled for pt on Tuesday and would rather just wait and take him there. Pt then states that she knows that they cannot take pt home like he is and would like TCU. This RN CM advised that TCU or any SNF are not able to take pt at this time d/t pt having sitter but would notify SW regarding same. Dr. Mendoza and Cole, PCU charge updated and PCU charge into room to speak with daughter regarding same. CM to follow. Servando JENKINS CM
--- NOTE | 2022-04-16 13:20 | NURSING ---
This RN went to speak with patient's family to reiterate the options for patient's disposition and understand their thinking. Patient's daughter, Sonal, explained she had spoken with contacts in the medical field that told her these patients often do better at home in their own environment. She stated that she would like to take the patient home and will take him to the appointment she set with a local neurologist next week, and then take him to a tertiary ED if he doesn't improve. This RN explained that is sometimes true with dementia patients, but at this point we have not ruled out all other diagnoses and we do not have the resources at [facility] to narrow down patient's diagnosis. I also explained that outpatient neurology offices will need to have a diagnosis to manage his care and do not offer the same testing in office as offered at a tertiary facility. Sonal asked if TCU was an option for discharge. I explained with his level of confusion and need for a sitter, TCU would not be an option. I reiterated with her that this is completely her decision and can discharge him home with her if that is her choice, but I wanted to make sure we are all on the same page and that she has a full understanding of her options. Sonal expressed understanding and wished to discuss it with her family. Shortly thereafter she came to the nurses desk and informed me she would like to initiate transfer to [facility].
[2022-04-16 15:12] VITALS: BP 107/55; PULSE 55; RESP 16; TEMP 36.6; O2SAT 99
[2022-04-16 15:39] VITALS: BMI 19.8
--- NOTE | 2022-04-16 17:07 | NURSING ---
This RN called to inform the transfer center that the requested covid swab was resulted and negative. Turntable Operator stated there is currently no bed available.
--- NOTE | 2022-04-16 19:35 | NURSING ---
This nurse spoke with Dr. Mendoza about daughter wanting keppra dc and her having too many peoples opinions on his care. Then this nurse talked to patients daughter. She looked up information on med and feels confusion is from med. Patient has had no episodes today since on kepra. Explained risks expressed by md and daughter states will make decision later. She will talk to charge nurse and give the answer. This nurse also gave direction to streamline her concerns about the patient to the nurse/charge nurse and Dr. Mendoza and not others whom are not looking at the whole patient and not involved in his care. She agreed
[2022-04-16 20:55] VITALS: BP 130/70; PULSE 58; RESP 16; TEMP 36.7; O2SAT 98
[2022-04-16] MEDS: Atorvastatin Calcium 80 MG Tablet PO (21:53)
--- NOTE | 2022-04-16 22:00 | NURSING ---
This RN updated family that a bed is available at [facility], and transport would be 2-3 hrs. Pts daughter was unhappy, this RN explained that we needed to transport tonight in order to keep the bed available. daughter decided it was okay to give keppra and lipitor tonight. Pt became highly aggitated when attempting to give medications. Pt got out of bed and became aggressive with this RN and daughter. Daughter and son in law were able to calm pt down once medications were taken away. Pt only got about half of dose (pills were crushed in pudding). Educated daughter that there is a sitter available if they need a break, family declined and said they would stay with the patient. Daughter also stated that pt may need something for transport to calm pt down. After talking to the Dr, this RN educated family that patient is supposed to have an eeg at [facility], so any medication we give pt may effect the eeg, and we should try to avoid that if possible. Report called to ALICE Fortune at [facility], was told visiting hours at [facility] are 7am-9pm so daughter is unable to come tonight. This RN told daughter about visiting hours. Daughter signed transport consent and recieved a copy. Daughter stated she would be taking belongings home with her, the pt would only be taking hearing aids, dentures, and glasses to [facility].
--- NOTE | 2022-04-16 23:00 | NURSING ---
This RN updated daughter and son in law that transport said it would be another 1.5 hrs. Daughter was unhappy, this RN explained that sometimes transport can be delayed, it is nothing we have control over.
--- NOTE | 2022-04-17 00:31 | NURSING ---
Pts daughter was able to get pt to take other half of evening meds
[2022-04-17] MEDS: Acetaminophen 325 MG Tablet 650 MG PO (01:37)
[2022-04-17 02:50] VITALS: BP 130/84; PULSE 70; RESP 16; TEMP 36.4; O2SAT 98
--- NOTE | 2022-04-17 12:41 | PCM.DC.SUM ---
Providers Date of Admission: 04/13/22 Date of Discharge: 04/16/22 Primary Care Physician: Dr. Leobardo Heredia MD Reason For Visit: STROKE-LIKE SYMPTOMS Diagnosis Discharge Diagnosis (1) Stroke-like symptoms: Status: Acute Code(s): R29.90 - Unspecified symptoms and signs involving the nervous system Plan 1. Altered mental status ? Unclear as to the etiology at the moment, this is unlikely to be a stroke, and MRI was negative ? Echo was unremarkable ? CT of the head was also normal ? Chest x-ray did not show pneumonia and UA was negative for UTI ? EEG demonstrated nonspecific slowing ? Had a phone consult with neurology and they agreed with the possibility of a complex partial seizure. They feel like the next course of action would be to obtain an MRI of the brain with and without contrast to visualize any structural abnormality and then to potentially transfer for 24-hour EEG monitoring. He was given a loading dose of Keppra and started on twice daily dosing ? MRI with and without contrast was also normal ? Given his continued confusion and his abnormal thought process, I do recommend transfer to tertiary care center for LP, 24-hour EEG monitoring and direct neurological evaluation and supervision. Unsure as to why the daughter is resistant to transfer however it is my strong recommendation so I am awaiting for her to pick a tertiary care center so I can get the process started. 2. CAD status post CABG/HTN/HLD/sinus bradycardia ? Blood pressure is stable ? His heart rate remains in the 40s to 50s ? Can restart his home blood pressure medication however at the moment his blood pressure does appear to be fairly well controlled ? Continue with Lipitor and aspirin 3. Hypothyroidism ? Stable ? Continue with Synthroid 4. BPH ? Stable ? Continue with Flomax 5. History of dysphagia ? ENT scoped him over the weekend in their office and they did not notice an obstruction ? He tends to have an issue with meat he did have a modified barium swallow while here recommendation is thin liquids with easy to to chew textures, and one-to-one close supervision ? Daughter says that he was started on Pepcid over the weekend which we will continue here DVT: SCDs Medications at Discharge Home Medications nitroglycerin 0.4 mg sublingual tablet 0.4 mg sublingual Q5-15M chest pain 02/08/19 levothyroxine 100 mcg tablet 150 mcg PO DAILY thyroid 09/02/21 aspirin 81 mg tablet,delayed release (Adult Low Dose Aspirin) 81 mg PO DAILY blood thinner 04/13/22 atorvastatin 80 mg tablet 80 mg PO QHS 04/13/22 lisinopril 10 mg-hydrochlorothiazide 12.5 mg tablet 1 tab PO DAILY blood pressure 04/13/22 tamsulosin 0.4 mg capsule (Flomax) 0.4 mg PO DAILY prostate 04/13/22 Hospital Course Operations None Procedures 2-D Echocardiogram and Electroencephalogram Summary of Care Provided Minutes Spent on Discharge: 42 Hospital Course: Per HPI: ARABELLA GARCIA, is a 82 M with a significant history of CAD status post CABG; hypothyroidism; sinus bradycardia; and hyperlipidemia who presents emergency department with strokelike symptoms.? About 2 hours before presentation patient was at yazidism and then he began to stare.? He was unable to talk.? He was answering questions by nodding.? Reportedly initially at the emergency department he did not know the month but later on he knew the month.? Emergency department doctor reported some change in sensation. At the emergency department his aphasia went away and he stopped staring. Reportedly patient had 1 episode of vomiting prior to coming to emergency department and another episode of vomiting at the emergency department. Hospital Course: 1.? Altered mental status ? Unclear as to the etiology at the moment, this is unlikely to be a stroke, and MRI was negative ? Echo was unremarkable ? CT of the head was also normal ? Chest x-ray did not show pneumonia and UA was negative for UTI ? EEG demonstrated nonspecific slowing ? Had a phone consult with neurology and they agreed with the possibility of a complex partial seizure.? They feel like the next course of action would be to obtain an MRI of the brain with and without contrast to visualize any structural abnormality and then to potentially transfer for 24-hour EEG monitoring.? He was given a loading dose of Keppra and started on twice daily dosing ? MRI with and without contrast was also normal ? Given his continued confusion and his abnormal thought process, I do recommend transfer to tertiary care center for LP, 24-hour EEG monitoring and direct neurological evaluation and supervision.? Unsure as to why the daughter is resistant to transfer however it is my strong recommendation, therefore family picked [facility] and they accepted. They did receive a bed this evening therefore he was discharged for further evaluation, including an LP and a 24-hour EEG 2.? CAD status post CABG/HTN/HLD/sinus bradycardia ? Blood pressure is stable ? His heart rate remains in the 40s to 50s ? Can restart his home blood pressure medication however at the moment his blood pressure does appear to be fairly well controlled ? Continue with Lipitor and aspirin 3.? Hypothyroidism ? Stable ? Continue with Synthroid 4.? BPH ? Stable ? Continue with Flomax 5.? History of dysphagia ? ENT scoped him over the weekend in their office and they did not notice an obstruction ? He tends to have an issue with meat he did have a modified barium swallow while here recommendation is thin liquids with easy to to chew textures, and one-to-one close supervision ? Daughter says that he was started on Pepcid over the weekend which we will continue here Weight / BMI Weight Weight: 146 lb 7.99 oz Body Mass Index (BMI) 19.8 ABG / Lab / Microbiology Data Result Diagrams: 04/16/22 11:15 04/16/22 11:15 Laboratory: Laboratory Results - last 24 hr 04/16/22 11:15: Sodium 130 L, Potassium 3.4 L, Chloride 95 L, Carbon Dioxide 27.0, Anion Gap 8, BUN 13, Creatinine 0.83, Estim Creat Clear Calc 66.72, Est GFR (MDRD) Af Amer 115, Est GFR (MDRD) Non-Af 95, BUN/Creatinine Ratio 15.7, Glucose 111 H, Calcium 9.5, Total Bilirubin 2.20 H, AST 19, ALT 24, Alkaline Phosphatase 35 L, Total Protein 7.4, Albumin 4.0, Globulin 3.4, Albumin/Globulin Ratio 1.2 Microbiology: Microbiology 04/16/22 16:10 Nasal Secretion SARS-CoV-2 Antigen (Rapid) - Final Meaningful Use Info Meaningful Use Diagnoses (Choose all that apply): None applicable Discharge Plan Admission Admit Date/Time: 04/13/22 15:58 Attending Provider: Ziyad Mendoza Primary Care Provider: Leobardo Heredia Consulting Providers: Josh Lyle Discharge Orders/Prescriptions Prescriptions: No Action nitroglycerin 0.4 mg tablet, sublingual 0.4 mg SUBLINGUAL Q5-15M levothyroxine 100 mcg tablet 150 mcg PO DAILY atorvastatin 80 mg Tablet 80 mg PO QHS lisinopril-hydrochlorothiazide 10-12.5 mg Tablet 1 tab PO DAILY aspirin [Adult Low Dose Aspirin] 81 mg tablet,delayed release (DR/EC) 81 mg PO DAILY tamsulosin [Flomax] 0.4 mg capsule 0.4 mg PO DAILY Referrals / Follow Up: Leobardo Heredia MD [Primary Care Provider] - Disposition Disposition (needs filled in before D/C Order can be placed): Acute Care Hospital Charges/Coding Visit Charges Inpatient E&M: 09322 Disch Hosp
== END 2022-04-17 03:00 | disposition short-term general hospital (02) | DRG 100 ==
LOC: ED 23:04 → PCU 04-13 00:36
PROVIDERS: Admitting Provider Hospitalist; Emergency Provider Emergency Medicine; PCP Family Medicine; Visit Provider Family Medicine
DX: G40.209 Localization-related (focal) (partial) symptomatic epilepsy and epileptic syndromes with complex partial seizures, not intractable, without status epilepticus (principal); E43 Unspecified severe protein-calorie malnutrition; E87.1 Hypo-osmolality and hyponatremia; Z68.1 Body mass index [BMI] 19.9 or less, adult; R13.14 Dysphagia, pharyngoesophageal phase; I25.119 Atherosclerotic heart disease of native coronary artery with unspecified angina pectoris; E78.5 Hyperlipidemia, unspecified; E03.9 Hypothyroidism, unspecified; I10 Essential (primary) hypertension; R00.1 Bradycardia, unspecified; I25.2 Old myocardial infarction; R41.89 Other symptoms and signs involving cognitive functions and awareness; N40.0 Benign prostatic hyperplasia without lower urinary tract symptoms; R47.1 Dysarthria and anarthria; R13.12 Dysphagia, oropharyngeal phase; R29.703 NIHSS score 3; Z95.1 Presence of aortocoronary bypass graft; Z79.82 Long term (current) use of aspirin; Z79.899 Other long term (current) drug therapy
CPT/HCPCS: 36415; 70450; 70496; 70498; 70551; 70553; 71045; 74230; 80048; 80053; 80061; 81001; 82607; 82962; 83036; 84443; 84484; 85025; 85610; 85730; 87426; 92526; 92610; 92611; 93005; 93306; 94762; 95819; 97162; 97166; 97535; 99285; A9575; J7050; Q9967; A4216; J2405

== ENCOUNTER 2022-05-07 15:02 | Inpatient (IN) | payer MEDICARE, OTHER, SELFPAY ==
[2022-05-07 15:12] VITALS: BP 132/76; PULSE 63; RESP 16; TEMP 36.4; O2SAT 97; BMI 19.1
--- NOTE | 2022-05-07 17:06 | HP.PCM_ITS ---
HPI - General General Date of Admission: 05/07/22 Date of Service: 05/07/22 Chief Complaint: Here for rehabilitation. HPI Narrative ARABELLA GARCIA, is a 82 Male who presents with followin04/12/2022 - 04/17/2022 Admitted to [facility] with stroke like symptoms, stroke ruled out, concern for seizures. 04/17/2022 Transfer to [facility] for seizures. 04/18/2022 Transfer from regular nursing floor to ICU for increased frequencies of seizures. 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 Worsening hypertension, post void residual > 1000ml, Straight catheter for retention, blood pressure normalized. 04/19/2022 Remains intubated, on Versed for seizure control. 04/20/2022 No acute overnight events, no seizure activity witnessed on Mitchell Element Method, Midazolam infusion stopped. 04/21/2022 Transfer to [facility]. 04/21/2022 Admit to [facility] ICU. 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 Prescribed 5 day course pulse dose steroids for autoimmune encephalitis. Keppra 2gm twice daily for status epilepticus. Mechanical ventilation, wean as tolerated. Free water restriction for SIADH. Confusion, hallucinations, well controlled with olanzapine. Cancer ruled out with multiple imaging modalities. Patient extubated. Dysphagia treated with temporary tubefeeding. Modified Barium Swallow normal, diet advanced to soft diet. Urinary retention treated with manzano catheter. 05/07/2022 Admit to TCU with debility, here for rehabilitation, strengthening, prior to discharge home alone. 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) Home Medications nitroglycerin 0.4 mg sublingual tablet 0.4 mg sublingual Q5-15M chest pain 02/08/19 [History Last Taken Unknown] levothyroxine 100 mcg tablet 150 mcg PO DAILY thyroid 09/02/21 [History Last Taken Unknown] aspirin 81 mg tablet,delayed release (Adult Low Dose Aspirin) 81 mg PO DAILY blood thinner 04/13/22 [History Last Taken Unknown] lisinopril 10 mg-hydrochlorothiazide 12.5 mg tablet 1 tab PO DAILY blood pressure 04/13/22 [History Last Taken Unknown] tamsulosin 0.4 mg capsule (Flomax) 0.4 mg PO DAILY prostate 04/13/22 [History Last Taken Unknown] Allergy/AdvReac Type Severity Reaction Status Date / Time No Known Allergies Allergy Verified 04/12/22 21:26 Family History Father Cancer Mother Heart disease Surgical History H/O coronary artery bypass surgery (10/20/95) History of appendectomy History of cataract surgery History of coronary angioplasty (03/1995) Hx of cholecystectomy Social History (Updated 05/07/22 @ 17:[address] Sly Sim MD) household members: none Smoking Status: Never smoker alcohol intake: current alcohol intake frequency: holidays/special occasions only substance use type: does not use caffeine: Yes Type: coffee ROS Constitutional Constitutional: Denies chills, fever(s) or weight gain ENT HEENT: Denies headache(s), nasal congestion or nasal discharge Cardiovascular Cardiovascular: Denies chest pain or palpitations Respiratory/Chest Respiratory/Chest: Denies cough, excessive phlegm production or shortness of breath with exertion Gastrointestinal Gastrointestinal: Denies abdominal pain, nausea or vomiting Genitourinary Genitourinary: Denies dysuria Musculoskeletal Musculoskeletal: Denies joint pain or joint swelling Integumentary Integumentary: Denies rash or wounds Neurologic Neurologic: Denies focal weakness, numbness or tingling Psychiatric Psychiatric: Denies anxiety, auditory hallucinations, depression, homicidal ideation or suicidal ideation Vital Signs Vital Signs Vital Signs: 05/07/22 15:12 Temperature 97.6 F L Temperature Source Temporal Pulse Rate 63 Respiratory Rate 16 Blood Pressure 132/76 H Blood Pressure Mean 94 Blood Pressure Source Monitor Blood Pressure Position Sitting Blood Pressure Location Right Arm Pulse Ox 97 Oxygen Delivery Method Room Air Weight Weight: 64.013 kg Body Mass Index (BMI) 19.1 Physical Exam Const alert General Appearance: cooperative HEENT normocephalic Eyes PERRL and EOMs intact bilaterally Neck supple, no JVD and no carotid bruits Resp normal respiratory effort, normal air movement and clear to auscultation bilaterally Cardio regular rate and regular rhythm GI normal to inspection, nondistended, normoactive bowel sounds, non-tender and non-distended Extremity normal capillary refill General Extremity: Negative for edema Skin no rashes or lesions noted General Skin Exam: no breakdown Psych affect normal Appearance: appropriate Assessment & Plan Assessment/Plan (1) Debility: (2) Encephalopathy: (3) Seizure disorder: (4) Autoimmune encephalitis: (5) Status epilepticus: (6) Dysphagia: (7) Urinary retention: (8) Coronary artery disease: (9) Hypertension: (10) Hyperlipidemia: (11) Hypothyroidism: (12) Benign prostate hyperplasia: PLAN: Plan 82 year old male with below past medical history hospitalized for 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 * Debility - PT/OT. * Dysphagia - ST. * Pain - Tylenol 1000mg q6h prn pain (1-10). * Bowel - senna/colace 1 tablet bid prn, Dulcolax 10mg daily prn, MOM 30ml daily prn. * Adult immunization - Administer pneumonia vaccine, covid19 vaccine, flu vaccine as appropriate. * DVT prophylaxis - Lovenox 40mg sc daily. * Coronary artery disease - Lisinopril 20mg daily, aspirin 81mg daily. * Nutrition - Ensure Plus 120ml 4x/day. * Hypothyroidism - Levothyroxine 150mcg daily. * Skin irritation - Calmoseptine topical bid. * Hallucination/confusion - Olanzapine 5mg po bid, stable chronic nursing home use, GDR not recommended. * BPH - Tamsulosin 0.4mg daily, indwelling manzano catheter, discontinue catheter when resident up and about. * Seizure disorder - Zonegran 200mg qhs.
[2022-05-07] MEDS: Tamsulosin HCl 0.4 MG Capsule PO (18:20)
[2022-05-07] MEDS: OLANZapine 5 MG/TAB TAB.RAPDIS PO (18:21)
[2022-05-07] MEDS: Ensure Plus High Protein 120 ML LIQUID PO ×2 (18:24→22:17)
[2022-05-07] MEDS: Zonisamide 50 MG Capsule 200 MG PO (22:16)
[2022-05-07] MEDS: Menthol/Lanolin/Calamine/Znox 113 GM Tube 1 APPLIC TOPICAL (22:18)
[2022-05-08] MEDS: Ensure Plus High Protein 120 ML LIQUID PO ×4 (06:47→20:33)
[2022-05-08] MEDS: Enoxaparin 40 MG/0.4 ML Syringe SC (06:56)
[2022-05-08] MEDS: Aspirin E.C. 81 MG Tablet PO (06:56)
[2022-05-08] MEDS: OLANZapine 5 MG/TAB TAB.RAPDIS PO ×2 (06:56→17:44)
[2022-05-08] MEDS: Lisinopril 20 MG Tablet PO (06:56)
[2022-05-08] MEDS: Levothyroxine 150 MCG Tablet PO (06:56)
[2022-05-08] MEDS: Menthol/Lanolin/Calamine/Znox 113 GM Tube 1 APPLIC TOPICAL ×2 (06:58→17:44)
[2022-05-08 07:38] LABS: Absolute Lymphocyte Count 1.57 X10^3/uL (0.83-4.51); Basophil# 0.07 X10^3/uL; Basophil% 0.8 % (0-1); Eosinophil# 0.18 X10^3/uL; Eosinophils% 2.1 % (0-5); Hematocrit 36.1 % (40-54); Hemoglobin 12.4 g/dL (13.0-16.5); Lymphocyte # 1.57 X10^3/ul (0.83-4.51); Mean Corp Hgb Conc 34.3 g/dL (32-36); Mean Corpuscular Hgb 32.5 pg (27.0-32.0); Mean Corpuscular Volume 94.8 fL (80-94); Mean Platelet Vol. 9.8 fl (6.2-12.0); Monocyte# 0.82 X10^3/uL; Monocyte% 9.4 % (0-10); NRBC Flagged by Analyzer 0 % (0-5); Neutrophil # 6.04 X10^3/uL (2.7-7.7); Neutrophil % 69.2 % (47-70); Platelet Count 371 K/mm3 (150-450); RBC Distribution Width CV 14.3 % (11.6-14.6); RBC Distribution Width SD 49.6 fl (35.1-43.9); Red Blood Count 3.81 M/mm3 (4.6-6.2); White Blood Count 8.7 K/mm3 (4.4-11.0)
[2022-05-08 07:55] LABS: Anion Gap 9 (5-15); BUN 13 mg/dL (7-18); BUN/Creat Ratio 15.8 RATIO (10-20); Calcium,Total 8.9 mg/dL (8.5-10.1); Chloride 103 mmol/L (98-107); Creatinine, Serum 0.82 mg/dL (0.70-1.30); EST Glomerular Filtration Rate 96 mL/min (>60); Est Glom Filt Rate - Afr Amer 116 mL/min (>60); Estimated Creatinine Clearance 65.05 ml/min; Glucose 102 mg/dL (74-106); Potassium 3.7 mmol/L (3.5-5.1); Sodium Level 133 mmol/L (136-145)
[2022-05-08 09:45] VITALS: PULSE 78; RESP 16; O2SAT 97
[2022-05-08] MEDS: Tuberculin,Purif.prot.deriv. 50 TU/ML Vial 0.1 ML ID (13:11)
[2022-05-08 15:02] VITALS: BP 101/65; PULSE 86; RESP 18; TEMP 36.8; O2SAT 98
--- NOTE | 2022-05-08 15:19 | NURSING ---
Addendum entered by Zina Wilks 05/08/22 19:36: Updated Dr. Sim on UA results, verbal order for Cipro 250 PO BID x7 days. Addendum entered by Zina Wilks 05/08/22 17:46: 16F manzano placed,patient tolerated well, return of dark bloody urine. UA sent. Addendum entered by Zina Wilks 05/08/22 17:18: Helped patient to bathroom to urinate, he voided a few large blood clots and moderate amount bloody urine. Bladder scan after voiding showed >750cc. Updated Dr. Sim, verbal order to re-insert manzano and sent UA w/ culture, stop lovenox, and hold aspirin for 7 days. Original Note: Patient and daughter asking about manzano being removed. Manzano removed at 1345, pt tolerated fine. Orders in place for straight cath as needed. Reminded patient to call for assistance with the urinal or to get to the bathroom.
[2022-05-08] MEDS: Tamsulosin HCl 0.4 MG Capsule PO (17:44)
[2022-05-08 18:16] LABS: Mucous, Urine 0 SEEN /hpf (<or=2+)
[2022-05-08 18:19] LABS: Color, Urine Red (Yellow); Glucose, Dipstick Normal (Normal); Ketone-Dipstick Negative (Negative); Leukocyte Esterase-Dipstick 500 /ul (Negative); Nitrite-Dipstick Positive (Negative); Occult Blood-Urine 250 /ul (Negative); Protein-Dipstick 100 mg/dl (Negative); Specific Gravity, Urine 1.005 (1.002-1.030); Urine Bilirubin Dipstick Negative (Negative); Urine Clarity Clear (Clear); Urine Urobilinogen Normal (Normal)
[2022-05-08 18:39] LABS: Red Blood Cells-Urine 5-10 SEEN /hpf (0-5); White Blood Cells 5-10 SEEN /hpf (0-5)
[2022-05-08 18:40] LABS: Bacteria 4+ /hpf (None Seen); Squamous Epithelial Cells - UA 0-5 SEEN /hpf (0-5)
[2022-05-08] MEDS: Zonisamide 50 MG Capsule 200 MG PO (20:29)
[2022-05-08] MEDS: Acetaminophen 500 MG Tablet 1000 MG PO (20:32)
[2022-05-08] MEDS: Ciprofloxacin 250 MG Tablet PO (20:33)
[2022-05-09 09:20] VITALS: BP 112/65; PULSE 62
[2022-05-09] MEDS: Menthol/Lanolin/Calamine/Znox 113 GM Tube 1 APPLIC TOPICAL ×2 (09:21→17:34)
[2022-05-09] MEDS: Ciprofloxacin 250 MG Tablet PO ×2 (09:21→17:35)
[2022-05-09] MEDS: Levothyroxine 150 MCG Tablet PO (09:22)
[2022-05-09] MEDS: OLANZapine 5 MG/TAB TAB.RAPDIS PO ×2 (09:22→17:34)
[2022-05-09] MEDS: Lisinopril 20 MG Tablet PO (09:22)
[2022-05-09 11:53] VITALS: BP 113/71; PULSE 62; RESP 16; TEMP 36.5; O2SAT 97
[2022-05-09 12:00] VITALS: PULSE 62; RESP 16; O2SAT 97
[2022-05-09] MEDS: Ensure Plus High Protein 120 ML LIQUID PO ×2 (12:03→20:24)
--- NOTE | 2022-05-09 13:28 | NURSING ---
Discussed flu vaccine administration with patient and daughter, daughter would like him to have vaccine but patient refuses.
[2022-05-09] MEDS: Tamsulosin HCl 0.4 MG Capsule PO (17:34)
[2022-05-09] MEDS: Zonisamide 50 MG Capsule 200 MG PO (20:23)
[2022-05-10] MEDS: Levothyroxine 150 MCG Tablet PO (05:33)
[2022-05-10] MEDS: Lisinopril 20 MG Tablet PO (05:33)
[2022-05-10] MEDS: Ensure Plus High Protein 120 ML LIQUID PO (05:34)
[2022-05-10] MEDS: OLANZapine 5 MG/TAB TAB.RAPDIS PO ×2 (05:34→17:21)
[2022-05-10] MEDS: Ciprofloxacin 250 MG Tablet PO ×2 (05:34→17:20)
--- NOTE | 2022-05-10 09:13 | PHA.CONS_ITS ---
TCU RX Drug Regimen Review Subjective: 82 YOM admitted to TCU 05/07/22 after significant hospitalization d/t seizure activity. Admitted to TCU for strengthening and rehabilitation prior to discharge home where he lives alone. Objective: Allergies No Known Allergies Allergy (Verified 04/12/22 21:26) Current Medications Generic Name Dose Route Start Last Admin Trade Name Freq PRN Reason Stop Dose Admin Acetaminophen 1,000 mg 05/07/22 17:30 05/08/22 20:32 Acetaminophen 500 Mg Tablet PO 1,000 mg Q6H PRN PRN Administration Pain Score 1-10 Aspirin 81 mg 05/15/22 08:00 Aspirin E.C. 81 Mg Tablet PO DAILYCM ESTEBAN Bisacodyl 10 mg 05/07/22 17:30 Bisacodyl 5 Mg Tablet PO X1 PRN CONSTIPATION Calamine/Phenol 1 applic 05/07/22 18:00 05/10/22 05:36 Menthol/Lanolin/Calamine/Znox 113 Gm Tube TOPICAL Not Given BID [facility] Protocol Ciprofloxacin HCl 250 mg 05/08/22 19:45 05/10/22 05:34 Ciprofloxacin 250 Mg Tablet PO 05/15/22 19:46 250 mg BID ESTEBAN Administration Levothyroxine Sodium 150 mcg 05/08/22 06:00 05/10/22 05:33 Levothyroxine 150 Mcg Tablet PO 150 mcg DAILY ESTEBAN Administration Lisinopril 20 mg 05/08/22 06:00 05/10/22 05:33 Lisinopril 20 Mg Tablet PO 20 mg DAILY ESTEBAN Administration Magnesium Hydroxide 30 ml 05/07/22 17:30 Magnesium Hydroxide 30 Ml Udc PO X1 PRN Constipation Nutritional Formula (Lactose Free) 120 ml 05/07/22 17:00 05/10/22 05:34 Ensure Plus High Protein 120 Ml Liquid PO 120 ml 4X/DAY ESTEBAN Administration Olanzapine 5 mg 05/07/22 18:00 05/10/22 05:34 Olanzapine 5 Mg/Tab Tab.Rapdis PO 5 mg BID ESTEBAN Administration Senna/Docusate Sodium 1 tablet 05/07/22 17:30 Senna/Docusate Sodium 1 Tablet PO BID PRN Constipation Tamsulosin HCl 0.4 mg 05/07/22 17:30 05/09/22 17:34 Tamsulosin Hcl 0.4 Mg Capsule PO 0.4 mg DAILY@1730 ESTEBAN Administration Tuberculin PPD 0.1 ml 05/15/22 10:00 Tuberculin,Purif.Prot.Deriv. 50 Tu/Ml Vial ID 05/15/22 10:01 X1 ONE Zonisamide 200 mg 05/07/22 22:00 05/09/22 20:23 Zonisamide 50 Mg Capsule PO 200 mg QHS ESTEBAN Administration Problem List (Last Reviewed 05/07/22 @ 17:[address] Sly Sim MD) Benign prostate hyperplasia (Acute) Hypothyroidism (Acute) Hyperlipidemia (Acute) Hypertension (Chronic) Coronary artery disease (Acute) Urinary retention (Acute) Dysphagia (Acute) Status epilepticus (Acute) Autoimmune encephalitis (Acute) Seizure disorder (Acute) Encephalopathy (Acute) Debility (Acute) Vital Signs Temp Pulse Resp BP Pulse Ox O2 Del Method 97.7 F L 62 16 113/71 97 Room Air 05/09/22 11:53 05/09/22 12:00 05/09/22 12:00 05/09/22 11:53 05/09/22 12:00 05/09/22 12:00 Oxygen Delivery Method Room Air Weight: 64.013 kg Body Mass Index (BMI) 19.1 Sodium 133 mmol/L (136-145) L 05/08/22 06:49 Potassium 3.7 mmol/L (3.5-5.1) 05/08/22 06:49 Chloride 103 mmol/L (98-107) 05/08/22 06:49 Carbon Dioxide 21.0 mmol/L (21.0-32.0) 05/08/22 06:49 Anion Gap 9 (5-15) 05/08/22 06:49 BUN 13 mg/dL (7-18) 05/08/22 06:49 Creatinine 0.82 mg/dL (0.70-1.30) 05/08/22 06:49 Est GFR (MDRD) Af Amer 116 mL/min (>60) 05/08/22 06:49 Est GFR (MDRD) Non-Af 96 mL/min (>60) 05/08/22 06:49 BUN/Creatinine Ratio 15.8 RATIO (10-20) 05/08/22 06:49 Glucose 102 mg/dL (74-106) 05/08/22 06:49 Assessment/Plan: 1. Pain: Tylenol 1000mg PO Q6h PRN Pain 1-10. Please continue to monitor for increased/decreased S/S pain, PRN medication usage. - To date, the patient has required one dose of Tylenol. Pre-medication pain assessment has pain ranked 8/10 (generalized pain), and 2/10 post-medication. It appears that pain is well controlled at this time. 2. CAD: Lisinopril 20mg PO Daily, Aspirin 81mg PO Daily. Please continue to monitor for S/S bleeding/bruising, H/H (Hgb 12.4, Hct 36.1 on 05/08), Electrolytes (stable as of 05/08), BP (range 101-132/65-76). 3. Hypothyroid: Synthroid 150mcg PO Daily. Please continue to monitor Tyroid function (TSH WNL 04/2022), S/S hypo/hyperthyroidism). 4. Seizure Disorder: Zonegran 200mg PO QHS. Please continue to monitor for dizziness, headache, falls, insomnia. This is a Beer's Criteria which can increase the risk of falls in the elderly. Please continue to closely monitor patient and consider adjustments if problems arise. It appears the patient does not have issues with falling/ motor skills at this time. 5. BPH: Flomax 0.4mg PO Daily. Please continue to monitor for urinary retention. 6. UTI: Ciprofloxacin 500mg PO BID. Please continue to closely monitor patient for QTc prolongation, urine cultures (prelim results show pseudomonas, not sensitivity data at this time), symptom improvement. 7. Skin Integrity: Calmoseptine topically BID. Please continue to monitor for skin irritation, redness, sore formation. 8. Bowel: Senna/Docusate 1 tab PO BID PRN, Dulcolax 10mg PO x1 PRN, MOM 30mL PO x1 PRN. Please continue to monitor for increased/decreased constipation and/or diarrhea. - To date, the patient has not produced a bowel movement according to chart review. Please consider administering PRN medication if patient does not have a BM in the next 24hrs, thank you. Assessment/Plan for indications treated with psychotropic medications: 1. Hallucinations/ Confusion: Olanzapine 5mg PO BID. Please continue to monitor QTc interval, medication effectiveness. This medication has increase risk of developing QTc prolongation, as well as a increase in morbidity/mortality in elderly patients with dementia. Please evaluate use given pt age, medical conditions, QTc interval >500 to assess if this is clinically the best medication choice for this patient, thank you. Medical chart and medication regimen reviewed. The following medication irregularities or issues were identified: 1. Ciprofloxacin and Zonegran: Patient currently on both medications which have a drug interaction regarding concerns for prolonged QTc interval/ Torsades. The patient's last QTc was 528 on 04/2022, which is increased. Please evaluate risk vs. benefit of using both agents given a QTc >500. Consider changing to alte rnate therapy if appropriate. The patient could possibly be changed to an IV antibiotic while admitted that covers pseudomonas (Zosyn, cefepime, merrem) if clinically indicated, thank you. 2. Hallucinations/ Confusion: Olanzapine 5mg PO BID. Please continue to monitor QTc interval, medication effectiveness. This medication has increase risk of developing QTc prolongation, as well as a increase in morbidity/mortality in elderly patients with dementia. Please evaluate use given pt age, medical conditions, QTc interval >500 to assess if this is clinically the best medication choice for this patient, thank you. Date of Note:: 05/10/22
[2022-05-10] MEDS: Senna/Docusate Sodium 1 Tablet PO (09:58)
--- NOTE | 2022-05-10 10:28 | NURSING ---
PRN STOOL SOFTENER GIVEN DUE TO UNKNOWING LAST BM. PT REFUSING TO DO THERAPY STATING TRISTEN OK AND DONT NEED TO BE HERE. YOU ALL HAVE BEEN WONDERFUL. THERAPY WILL BE NOTIFIED.
--- NOTE | 2022-05-10 11:35 | NURSING ---
PT COMPLAINING OF HIS PENIS HURTING AND WANTED CRAVEN OUT. THIS NURSE OBSERVE CRAVEN WAS PULLING. READJUSTED CATH PLACEMENT ON LEG. PT STATED IT FELT BETTER. PT DID STATE AGAIN THAT HE WANTED IT OUT. THIS NURSE EDUCATED PT ON REASON HE HAS IT. PT STATED IT WOULD BE OK. STATED TO PT THAT I WOULD GET BACK TO HIM. RN AND PT DAUGHTER UPDATED.
--- NOTE | 2022-05-10 11:45 | NURSING ---
Blow Down Operator Note; Activity Assessment Complete
[2022-05-10 14:34] VITALS: BP 118/63; PULSE 69; RESP 15; TEMP 36.7; O2SAT 96
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
[2022-05-10] MEDS: Tamsulosin HCl 0.4 MG Capsule PO (17:19)
[2022-05-10 19:41] VITALS: PULSE 60; RESP 16; O2SAT 98
[2022-05-10] MEDS: Zonisamide 50 MG Capsule 200 MG PO (19:48)
[2022-05-11] MEDS: Levothyroxine 150 MCG Tablet PO (05:53)
[2022-05-11] MEDS: Lisinopril 20 MG Tablet PO (05:54)
[2022-05-11] MEDS: OLANZapine 5 MG/TAB TAB.RAPDIS PO ×2 (05:54→17:34)
[2022-05-11] MEDS: Ciprofloxacin 250 MG Tablet PO ×2 (05:56→17:34)
[2022-05-11 06:05] VITALS: BP 115/81; PULSE 80
[2022-05-11 06:06] VITALS: PULSE 80; RESP 16; O2SAT 97
--- NOTE | 2022-05-11 08:07 | NURSING ---
PER DR. OWENS ORDER. REMOVE CRAVEN ON 05/13 AND START VOIDING TRIALS.
[2022-05-11] MEDS: Tamsulosin HCl 0.4 MG Capsule PO ×2 (08:14→17:34)
--- NOTE | 2022-05-11 10:06 | MDS.RN ---
VM left for dtr-Sonal, regarding POC scheduled for 05/12/22.
[2022-05-11] MEDS: Ensure Plus High Protein 120 ML LIQUID PO (11:22)
[2022-05-11 15:01] VITALS: BP 116/73; PULSE 74; RESP 18; TEMP 36.6; O2SAT 96
[2022-05-11] MEDS: Acetaminophen 500 MG Tablet 1000 MG PO (20:20)
[2022-05-11] MEDS: Zonisamide 50 MG Capsule 200 MG PO (20:20)
[2022-05-12] MEDS: Lisinopril 20 MG Tablet PO (05:10)
[2022-05-12] MEDS: Ciprofloxacin 250 MG Tablet PO ×2 (05:10→18:15)
[2022-05-12] MEDS: Levothyroxine 150 MCG Tablet PO (05:10)
[2022-05-12] MEDS: OLANZapine 5 MG/TAB TAB.RAPDIS PO ×2 (05:11→18:15)
[2022-05-12] MEDS: Tamsulosin HCl 0.4 MG Capsule PO ×2 (08:28→18:14)
--- NOTE | 2022-05-12 09:03 | CASEMGMT ---
Social Work IDT met with patient and dtr for care plan meeting. Discussed patient's progress in PT/OT/ST/SN. Educated to Medicare benefit. Encouraged to contact secondary insurance to ensure copay. Pt lives with at home, but does not contribute to household tasks, per pt. However, per pt, he is his . Dtr is supportive but works alarm operator. Pt continues to refuse shower from OT. ST to eval for cognition. Pt is confused more today than days prior. Pt remains focused on wanting to discharging, however, Dr. Sim agrees with IDT pt is not ready to DC. Dtr wants pts manzano removed, cognition to clear and for him to get stronger prior to DC. SW to continue to follow for discharge planning and support. Mariely Walker, VICE PRINCIPAL METER READERS SUPERVISOR
[2022-05-12 09:48] VITALS: PULSE 84; RESP 16; O2SAT 95
[2022-05-12] MEDS: Ensure Plus High Protein 120 ML LIQUID PO ×2 (12:40→18:14)
[2022-05-12 14:45] VITALS: BP 94/63; PULSE 76; RESP 16; TEMP 36.7; O2SAT 95
[2022-05-12] MEDS: Zonisamide 50 MG Capsule 200 MG PO (20:35)
[2022-05-13] MEDS: OLANZapine 5 MG/TAB TAB.RAPDIS PO ×2 (05:58→17:29)
[2022-05-13] MEDS: Levothyroxine 150 MCG Tablet PO (05:58)
[2022-05-13] MEDS: Lisinopril 20 MG Tablet PO (05:58)
[2022-05-13] MEDS: Ciprofloxacin 250 MG Tablet PO ×2 (05:58→17:30)
[2022-05-13 06:04] VITALS: BP 112/75; PULSE 83
--- NOTE | 2022-05-13 06:07 | NURSING ---
Geller removed at this time per order. Patient tolerated well.
[2022-05-13] MEDS: Tamsulosin HCl 0.4 MG Capsule PO ×2 (08:40→17:30)
--- NOTE | 2022-05-13 10:43 | NURSING ---
pt voided in toilet, bladder scanned for 473 post void, pt adamant that he is not having a manzano. Educated on urine retention. I don't care what you say, I'm not having a tube put in me. Encouraged pt to try to void again to empty bladder, however pt unsuccessful.
--- NOTE | 2022-05-13 13:27 | MDS.RN ---
Pain interview for mindy 05/14/22.
[2022-05-13 13:44] VITALS: BP 126/59; PULSE 68; RESP 16; TEMP 36.9; O2SAT 97
[2022-05-13] MEDS: Ensure Plus High Protein 120 ML LIQUID PO ×3 (13:47→21:45)
[2022-05-13] MEDS: Menthol/Lanolin/Calamine/Znox 113 GM Tube 1 APPLIC TOPICAL (17:30)
[2022-05-13 19:47] VITALS: PULSE 66; RESP 16; O2SAT 97
--- NOTE | 2022-05-13 19:47 | NURSING ---
Patient bladder scanned at 791 mL. Patient continues to refuse to be straight cath'd or manzano replaced. Educated patient on urinary retention and the complications that it can cause. Patient stated, I don't care, I'll go pee come back in an hour. Instructed patient to use call light when he needed to urinate so we could try to measure how much he is going at a time. Patient responded with, I will try.
--- NOTE | 2022-05-13 20:00 | NURSING ---
Addendum entered by Erica Lowry 05/14/22 02:36: Daughter Sonal returned call. Informed daughter with concerns on patient refusing to let staff straight cath for urinary retention. Informed Daughter this Nurse would continue to try. Also discussed Dr. Valentin Consult. Daughter stated patient has been to him before and she would really like him to see a Urologist at this point. Original Note: Voicemail left for Daughter Sonal concerning patients urinary retention.
--- NOTE | 2022-05-13 21:26 | NURSING ---
Addendum entered by Erica Lowry 05/14/22 23:52: Correction to below note. Patient bladder scanned with 225mL of urine. not 2225mL. Original Note: 21:26--Bladder scanned patient prevoid at greater than 999mL. Urine hat placed in toilet. Patient urinated 175mL. Patient agreed he would let this Nurse straight cath as long as catheter did not stay in. Patient laid in bed in position of comfort. Abdomen distended and slightly tender when palpated. Catheter inserted utilizing sterile technique. Immediate urine flow into container. 925mL of urine obtained via catheter. Catheter removed. Patient bladder scanned with 2225 mL of urine still in bladder. Abdomen distention decreased. Patient tolerated well. 21:47--Daughter Sonal updated that patient did allow this nurse to straight cath and empty bladder. Daughter very thankful to this Nurse. Informed her this Nurse did leave a note for Dr. Sim asking for Dr. Valentin Consult.
[2022-05-13] MEDS: Zonisamide 50 MG Capsule 200 MG PO (21:45)
[2022-05-14] MEDS: Lisinopril 20 MG Tablet PO (06:15)
[2022-05-14] MEDS: Levothyroxine 150 MCG Tablet PO (06:15)
[2022-05-14] MEDS: Ensure Plus High Protein 120 ML LIQUID PO ×3 (06:15→16:31)
[2022-05-14] MEDS: Ciprofloxacin 250 MG Tablet PO ×2 (06:15→16:31)
[2022-05-14] MEDS: OLANZapine 5 MG/TAB TAB.RAPDIS PO ×2 (06:15→16:32)
[2022-05-14] MEDS: Tamsulosin HCl 0.4 MG Capsule PO ×2 (09:04→16:31)
[2022-05-14] MEDS: Lidocaine 5% Patch 1 PATCH TOPICAL (09:04)
--- NOTE | 2022-05-14 09:17 | NURSING ---
NOTIFIED R' AND DAUGHTER OF N.O. FOR LIDOCAINE PATCH AND C/S FOR DR PEREZ.
--- NOTE | 2022-05-14 11:25 | NURSING ---
Addendum entered by Inse Headley 05/14/22 13:57: DR PEREZ RETURNED CALL WILL BE IN TOMORROW FOR CONSULT. Addendum entered by Ines Headley 05/14/22 12:44: no call back from this morning. paged dr perez again at this time. Original Note: CALLED DR PEREZ'S OFFICE FOR CONSULT. NO OFFICE HRS ON TUESDAY. PAGED CRITICAL CARE PHYSICIAN TO PAGE HIM DIRECTLY. AWAITING CALL BACK.
--- NOTE | 2022-05-14 13:53 | CASEMGMT ---
Social Work BIMS () and PHQ-9 (02/24) completed for MDS assessment. Explored responses further. pt expressed he is bored, has little motivation - only to get home, and doesn't like the food. Provided supportive listening and offered interventions. Pt denied and stated he was fine. Mariely Walker, HOTEL HOUSEMAN VULCANIZER
--- NOTE | 2022-05-14 14:36 | PCM.CONS.U ---
HPI Consult Data Date of Consult: 05/14/22 HPI Narrative Reason for Consultation: + HPI Narrative: ARABELLA GARCIA, is a 82 M who presents to rehab with a Geller catheter he has subsignificant medical history of autoimmune encephalitis he was transferred here for further rehabilitation after long hospital stay he has a catheter in place for large urinary retention. He is on Flomax. At this point he is not really a surgical candidate for TURP given his overall medical conditions. I think we can either manage his bladder with a chronic catheter or straight intermittent catheterization either approaches fairly reasonable if the patient's condition would improve dramatically then certainly he would be candidate for surgery for TURP but this point reviewing his chart review and medical history is not a candidate for this and will continue I would manage his bladder with either a chronic Geller catheter or intermittent catheterization depending on the family's wishes. Questions please give me a call. 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) Home Medications nitroglycerin 0.4 mg sublingual tablet 0.4 mg sublingual Q5-15M chest pain 02/08/19 [History Last Taken Unknown] levothyroxine 100 mcg tablet 150 mcg PO DAILY thyroid 09/02/21 [History Last Taken Unknown] aspirin 81 mg tablet,delayed release (Adult Low Dose Aspirin) 81 mg PO DAILY blood thinner 04/13/22 [History Last Taken Unknown] lisinopril 10 mg-hydrochlorothiazide 12.5 mg tablet 1 tab PO DAILY blood pressure 04/13/22 [History Last Taken Unknown] tamsulosin 0.4 mg capsule (Flomax) 0.4 mg PO DAILY prostate 04/13/22 [History Last Taken Unknown] Allergy/AdvReac Type Severity Reaction Status Date / Time No Known Allergies Allergy Verified 04/12/22 21:26 Family History Father Cancer Mother Heart disease Surgical History H/O coronary artery bypass surgery (10/20/95) History of appendectomy History of cataract surgery History of coronary angioplasty (03/1995) Hx of cholecystectomy Social History (Updated 05/07/22 @ 17:[address] Sly Sim MD) household members: none Smoking Status: Never smoker alcohol intake: current alcohol intake frequency: holidays/special occasions only substance use type: does not use caffeine: Yes Type: coffee Medical Records Data Medical Nutrition Assessment Dietitian: Malnutrition Criteria Met Start: 05/08/22 13:10 Freq: Status: Active Protocol: Document 05/12/22 15:10 SLA (Rec: 05/12/22 15:10 [facility] [id number]) Nutrition Malnutrition Evidence of Malnutrition Exists Yes Malnutrition (moderate): Acute Illness/Injury Evidenced By Weight Loss (Severe),Physical Changes (Moderate) Clinical Problem Acute Disease or Injury Related Malnutrition Etiology related to acute illness prior to admission involving [facility] ventilation and issues w/ dysphagia and short term enteral nutrition support Signs/Symptoms as evidenced by 11.3% wt loss x 1 mo and fat/muscle loss in face (orbitals, temporal, buccal) and clavicles, acromion, arms Status Active Problem Recommendation Dietitian Recommendations/Changes Will continue liberal Regular diet - consistency per EQUIPMENT MAINTENANCE TECH Will continue 120 ml ensure plus high protein w/ medpass 4x/day related to signs and symptoms of malnutrition. Lab / Micro Data Result Diagrams: 05/08/22 06:49 05/08/22 06:49
[2022-05-14 15:02] VITALS: BP 103/64; PULSE 66; RESP 18; TEMP 36.7; O2SAT 98
--- NOTE | 2022-05-14 15:33 | NURSING ---
DR PEREZ IN TOO R'. N.O. PROSCAR AND STRAIGHT CATH >500cc. DAUGHTER POKE WITH DR PEREZ AND IS AGREEABLE. R' DOES NOT WANT CRAVEN AT THIS TIME.
--- NOTE | 2022-05-14 16:02 | NURSING ---
STRAIGHT CATH'D FOR 550cc. URINE CLEAR, YELLOW. R' TOLERATED WELL.
[2022-05-14] MEDS: Zonisamide 50 MG Capsule 200 MG PO (22:53)
[2022-05-15] MEDS: Ensure Plus High Protein 120 ML LIQUID PO ×2 (06:00→22:15)
[2022-05-15] MEDS: Ciprofloxacin 250 MG Tablet PO ×2 (06:01→17:19)
[2022-05-15] MEDS: Finasteride 5 MG Tablet PO (06:01)
[2022-05-15] MEDS: Levothyroxine 150 MCG Tablet PO (06:01)
[2022-05-15] MEDS: OLANZapine 5 MG/TAB TAB.RAPDIS PO ×2 (06:01→17:20)
[2022-05-15] MEDS: Lisinopril 20 MG Tablet PO (06:01)
[2022-05-15] MEDS: Lidocaine 5% Patch 1 PATCH TOPICAL (06:02)
[2022-05-15 07:24] LABS: Absolute Lymphocyte Count 2.21 X10^3/uL (0.83-4.51); Absolute Neutrophil Count 3.9 X10^3/uL (2.0-7.7); Basophil# 0.11 X10^3/uL; Basophil% 1.5 % (0-1); Eosinophil# 0.35 X10^3/uL; Eosinophils% 4.7 % (0-5); Hematocrit 40.1 % (40-54); Hemoglobin 13.5 g/dL (13.0-16.5); Lymphocyte # 2.21 X10^3/ul (0.83-4.51); Lymphocyte % 29.5 % (19-41); Mean Corp Hgb Conc 33.7 g/dL (32-36); Mean Corpuscular Hgb 31.4 pg (27.0-32.0); Mean Corpuscular Volume 93.3 fL (80-94); Monocyte# 0.92 X10^3/uL; Monocyte% 12.3 % (0-10); NRBC Flagged by Analyzer 0 % (0-5); Neutrophil # 3.88 X10^3/uL (2.7-7.7); Neutrophil % 51.6 % (47-70); Platelet Count 471 K/mm3 (150-450); RBC Distribution Width CV 14.8 % (11.6-14.6); RBC Distribution Width SD 50.9 fl (35.1-43.9); White Blood Count 7.5 K/mm3 (4.4-11.0)
[2022-05-15 07:37] LABS: Anion Gap 8 (5-15); BUN 10 mg/dL (7-18); BUN/Creat Ratio 10.4 RATIO (10-20); Calcium,Total 9.5 mg/dL (8.5-10.1); Chloride 105 mmol/L (98-107); Creatinine, Serum 0.96 mg/dL (0.70-1.30); EST Glomerular Filtration Rate 80 mL/min (>60); Est Glom Filt Rate - Afr Amer 97 mL/min (>60); Estimated Creatinine Clearance 55.57 ml/min; Glucose 123 mg/dL (74-106); Potassium 3.8 mmol/L (3.5-5.1); Sodium Level 135 mmol/L (136-145)
[2022-05-15] MEDS: Tamsulosin HCl 0.4 MG Capsule PO ×2 (07:40→17:19)
[2022-05-15] MEDS: Aspirin E.C. 81 MG Tablet PO (07:40)
[2022-05-15] MEDS: Tuberculin,Purif.prot.deriv. 50 TU/ML Vial 0.1 ML ID (11:26)
[2022-05-15 14:54] VITALS: BP 110/69; PULSE 77; RESP 16; TEMP 36.8; O2SAT 98
--- NOTE | 2022-05-15 15:00 | NURSING ---
pt st cathed for 400cc urine, bladder scan read >999. pt had voided couple times in toilet approx 500cc yellow urine. pt aware of starting new medication for prostate and teaching materials given on anatomy and TURP procedure.
--- NOTE | 2022-05-15 15:09 | NURSING ---
CALLED AND UPDATED DAUGHTER ON PT. DAUGHTER THANKED THIS NURSE.
[2022-05-15] MEDS: Zonisamide 50 MG Capsule 200 MG PO (22:15)
[2022-05-15 22:23] VITALS: PULSE 82; RESP 18; O2SAT 97
[2022-05-16] MEDS: Lidocaine 5% Patch 1 PATCH TOPICAL (04:43)
[2022-05-16] MEDS: Finasteride 5 MG Tablet PO (04:43)
[2022-05-16] MEDS: OLANZapine 5 MG/TAB TAB.RAPDIS PO ×2 (04:43→17:16)
[2022-05-16] MEDS: Lisinopril 20 MG Tablet PO (04:44)
[2022-05-16] MEDS: Levothyroxine 150 MCG Tablet PO (04:45)
[2022-05-16] MEDS: Tamsulosin HCl 0.4 MG Capsule PO ×2 (07:51→17:15)
[2022-05-16] MEDS: Aspirin E.C. 81 MG Tablet PO (07:52)
--- NOTE | 2022-05-16 11:55 | NURSING ---
PT VOIDED 200,BLADDER SCANNED FOR 692. PER ORDER TO STRAIGHT CATH PT IF OVER 500. PT REFUSED TO LET THIS NURSE STRAIGHT CATH HIM. EDUCATED PT BUT PT STILL REFUSED. THIS NURSE WILL TRY AGAIN LATER. RN AWARE
[2022-05-16 13:40] VITALS: PULSE 66; RESP 18; O2SAT 98
[2022-05-16 14:31] VITALS: BP 109/65; PULSE 62; RESP 18; TEMP 36.5; O2SAT 97
--- NOTE | 2022-05-16 15:28 | NURSING ---
THIS NURSE ASKED PT AGAIN IF HE WOULD LET THIS NURSE STRAIGHT CATH HIM AND AGAIN EDUCATED PT. PT STATED NO,I HAVE MERLIN IN GOD AND GOD WILL PROVIDE AND WATCH OVER ME. IF ITS MY TIME TO ITS MY TIME AND TRISTEN OK WITH IT. THIS NURSE STATED TO PT IF HE CHANGES HIS MIND TO CALL AND LET STAFF KNOW. PT THANKED THIS NURSE AND STATED HE WOULD LET US KNOW. WILL CONTINUE TO MONITOR AND RN AWARE.
[2022-05-16] MEDS: Ensure Plus High Protein 120 ML LIQUID PO (17:14)
[2022-05-16] MEDS: Bisacodyl 5 MG Tablet 10 MG PO (18:34)
[2022-05-16] MEDS: Zonisamide 50 MG Capsule 200 MG PO (20:14)
--- NOTE | 2022-05-16 20:19 | NURSING ---
Pt refused to be bladder scanned at this time. Instructed to call staff after voiding in at to have scan completed. Educated on importance of emptying bladder to prevent complications including localized or systemic infection. Pt does not acknowledge education provided. Will continue to monitor.
--- NOTE | 2022-05-16 22:02 | NURSING ---
St cath per production support specialist for > 750ml after voiding approximately 300ml. Discussed importance of st catheterization to prevent infection. Pt refuses st cath again this shift. Denies any abdominal discomfort. Educated again about risk of infection with high post void residual and pt states, I'll just wait. Instructed to call staff again after next void. Will continue to monitor.
[2022-05-17] MEDS: OLANZapine 5 MG/TAB TAB.RAPDIS PO ×2 (06:15→16:59)
[2022-05-17] MEDS: Levothyroxine 150 MCG Tablet PO (06:16)
[2022-05-17] MEDS: Finasteride 5 MG Tablet PO (06:17)
[2022-05-17] MEDS: Lidocaine 5% Patch 1 PATCH TOPICAL (06:17)
[2022-05-17 06:29] VITALS: BP 103/49; PULSE 75
--- NOTE | 2022-05-17 06:31 | NURSING ---
Lisinopril held at this time for BP of 103/49. Pt is asymptomatic. Will continue to monitor.
--- NOTE | 2022-05-17 07:42 | NURSING ---
St cath this am after fluctuating bladder scan reflect levels between high 300s to greater than 999. Using sterile technique, st cath for 500 ml clear, straw colored urine. Educated on importance preventing infection by allowing nurses to st cath for high PVRs. Will continue to monitor.
[2022-05-17] MEDS: Aspirin E.C. 81 MG Tablet PO (08:46)
[2022-05-17] MEDS: Tamsulosin HCl 0.4 MG Capsule PO ×2 (08:46→16:58)
--- NOTE | 2022-05-17 09:16 | NURSING ---
Berry Planter Note; MDS/CAA Complete for 05/14/2022
[2022-05-17] MEDS: Ensure Plus High Protein 120 ML LIQUID PO ×2 (11:18→16:57)
[2022-05-17 13:53] VITALS: BP 110/57; RESP 16; TEMP 36.7; O2SAT 99
--- NOTE | 2022-05-17 15:42 | CASEMGMT ---
Social Work Overheard commotion at the nurse's station. SW presented. Pt at nurse's station with coat, hat and slipper shoes on stating he was leaving. Pastor Wagoner present with pt. Nursing informed this worker that pt was requesting to leave with but Dr. Sim will not sign for DC. Nurse contacting dtr to notify. SW spoke with pt - educated on discharge AMA, not ordering continued therapy, nursing care, medications, follow up appts, etc. Wanting pt to be safely discharged when Dr feels pt is appropriate. Pt stated he didn't care what the Dr said, he has human rights, he will call the police to tell staff he has human rights. SW agreed pt has rights, but reiterated ensuring a safe discharge is in place for pt. Inquired who is driving pt home. Pt pointed to Pastor Wagoner. SW asked if that was correct. Community Health Navigator stated he could drive him home, but agrees and stated to pt that HHC would be beneficial. SW educated that if he is taking pt home now, pt would be discharging AMA. At that time, dtr presented to nurse's station and attempted to reason and redirect pt. Dtr reminded pt of Dr. Sim visiting pt during rounds this evening, wanting to ensure bladder was emptying, and urinary issues are resolving. Pt arguing with dtr. All parties attempting to redirect and defused pt. Community Health Navigator stated he will not be driving pt home. Pt ultimately agreed to wait to see Dr. Sim at rounds. Dtr will be present. Pt returned to room without further incident. Dtr expressed appreciation for intervention. SW to continue to follow. Mariely Walker, SYLVIE CHARLES
[2022-05-17] MEDS: Acetaminophen 500 MG Tablet 1000 MG PO (16:57)
[2022-05-17 19:56] VITALS: PULSE 80; RESP 18; O2SAT 98
[2022-05-17] MEDS: Zonisamide 50 MG Capsule 200 MG PO (20:07)
--- NOTE | 2022-05-17 20:26 | NURSING ---
Bladder scanned at 573 mL at this time. Patient refusing to use restroom or be straight cath's. States,It'll be ok, I will try to go later.
--- NOTE | 2022-05-18 05:37 | NURSING ---
Pt noted to void 400cc in toilet, when bladder scanned it showed 661cc still in bladder. Pt refuses straight cath x3 despite education. Pt states it has been done too many times and it is starting to hurt
[2022-05-18] MEDS: Lidocaine 5% Patch 1 PATCH TOPICAL (05:39)
[2022-05-18] MEDS: Finasteride 5 MG Tablet PO (05:39)
[2022-05-18] MEDS: OLANZapine 5 MG/TAB TAB.RAPDIS PO (05:40)
[2022-05-18] MEDS: Lisinopril 20 MG Tablet PO (05:40)
[2022-05-18] MEDS: Levothyroxine 150 MCG Tablet PO (05:40)
[2022-05-18] MEDS: Ensure Plus High Protein 120 ML LIQUID PO (05:42)
[2022-05-18] MEDS: Aspirin E.C. 81 MG Tablet PO (07:39)
[2022-05-18] MEDS: Tamsulosin HCl 0.4 MG Capsule PO (07:39)
--- NOTE | 2022-05-18 08:19 | DS.PCM_ITS ---
Providers Date of Admission: 05/07/22 Primary Care Physician: Dr. Leobardo Heredia MD Consultations 05/14/22 07:54 Consult: Urology Routine Consulting Provider: Kris Morgan Reason for Consult: BPH, urinary retention, on Tamsulosin 0.4mg bid. 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 - Other encephalitis and encephalomyelitis (5) Status epilepticus: Status: Acute Code(s): G40.901 - Epilepsy, unspecified, not intractable, with status epilepticus (6) Dysphagia: Status: Acute Code(s): R13.10 - Dysphagia, unspecified (7) Urinary retention: Status: Acute Code(s): R33.9 - Retention of urine, unspecified (8) Coronary artery disease: Status: Acute Code(s): I25.10 - Atherosclerotic heart disease of zuni coronary artery without angina pectoris (9) Hypertension: Status: Chronic Code(s): I10 - Essential (primary) hypertension (10) Hyperlipidemia: Status: Acute Code(s): E78.5 - Hyperlipidemia, unspecified (11) Hypothyroidism: Status: Acute Code(s): E03.9 - Hypothyroidism, unspecified (12) Benign prostate hyperplasia: Status: Acute Code(s): N40.0 - Benign prostatic hyperplasia without lower urinary tract symptoms Plan 82 year old male with below past medical history hospitalized for 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 * Debility - PT/OT. * Dysphagia - ST. * Pain - Tylenol 1000mg q6h prn pain (1-10). * Bowel - senna/colace 1 tablet bid prn, Dulcolax 10mg daily prn, MOM 30ml daily prn. * Adult immunization - Administer pneumonia vaccine, covid19 vaccine, flu vaccine as appropriate. * DVT prophylaxis - Lovenox 40mg sc daily. * Coronary artery disease - Lisinopril 20mg daily, aspirin 81mg daily. * Nutrition - Ensure Plus 120ml 4x/day. * Hypothyroidism - Levothyroxine 150mcg daily. * Skin irritation - Calmoseptine topical bid. * Hallucination/confusion - Olanzapine 5mg po bid, stable chronic long-term use, GDR not recommended. * BPH - Tamsulosin 0.4mg daily, indwelling manzano catheter, discontinue catheter when resident up and about. * Seizure disorder - Zonegran 200mg qhs. Medications at Discharge Home Medications levothyroxine 100 mcg tablet 150 mcg PO DAILY thyroid 09/02/21 aspirin 81 mg tablet,delayed release (Adult Low Dose Aspirin) 81 mg PO DAILY blood thinner 04/13/22 acetaminophen 500 mg tablet 1,000 mg PO Q6H PRN PRN Pain Score 1-10 #0 tabs 05/18/22 finasteride 5 mg tablet 5 mg PO DAILY 30 days #30 tabs 05/18/22 lisinopril 20 mg tablet 20 mg PO DAILY 30 days #30 tabs 05/18/22 olanzapine 5 mg disintegrating tablet 5 mg PO BID 30 days #60 tabs 05/18/22 tamsulosin 0.4 mg capsule 0.4 mg PO 0830,1730 30 days #60 caps 05/18/22 zonisamide 100 mg capsule (Zonegran) 200 mg PO DAILY #60 caps 05/18/22 Hospital Course Operations None Procedures None Summary of Care Provided Minutes Spent on Discharge: 35 Hospital Course: 82 year old male with below past medical history hospitalized for 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 On TCU, resident having agitated confusion, intermittent. He has urinary retention, Dr. Morgan consulted, currently not TURP candidate, resident is on Tamsulosin 0.4mg bid, Finasteride 5mg daily, he is refusing indwelling manzano catheter, and sometimes agreeable to straight cath. Discharge home alone 05/18/2022, No needs. Physical Exam Const alert General Appearance: cooperative HEENT normocephalic Eyes PERRL and EOMs intact bilaterally Neck supple, no JVD and no carotid bruits Resp normal respiratory effort, normal air movement and clear to auscultation bilaterally Cardio regular rate and regular rhythm GI normal to inspection, nondistended, normoactive bowel sounds, non-tender and non-distended Extremity normal capillary refill General Extremity: Negative for edema Skin no rashes or lesions noted General Skin Exam: no breakdown Psych affect normal Appearance: appropriate Medical Records Data Medical Nutrition Assessment Dietitian: Malnutrition Criteria Met Start: 05/08/22 13:10 Freq: Status: Active Protocol: Document 05/12/22 15:10 LUZ MARIA (Rec: 05/12/22 15:10 [facility] [id number]) Nutrition Malnutrition Evidence of Malnutrition Exists Yes Malnutrition (moderate): Acute Illness/Injury Evidenced By Weight Loss (Severe),Physical Changes (Moderate) Clinical Problem Acute Disease or Injury Related Malnutrition Etiology related to acute [facility] and issues w/ dysphagia and short term enteral nutrition support Signs/Symptoms as evidenced by 11.3% wt loss x 1 mo and fat/muscle loss in face (orbitals, temporal, buccal) and clavicles, acromion, arms Status Active Problem Recommendation Dietitian Recommendations/Changes Will continue liberal Regular diet - consistency per REFRIGERATOR ROOM CLERK Will continue 120 ml ensure plus high protein w/ medpass 4x/day related to signs and symptoms of malnutrition. Weight / BMI Weight Weight: 64.013 kg Body Mass Index (BMI) 19.1 ABG / Lab / Microbiology Data Result Diagrams: 05/15/22 06:40 05/15/22 06:40 Microbiology: Microbiology 05/11/22 05:15 Nasal Secretion SARS-CoV-2 Antigen (Rapid) - Final 05/08/22 17:40 Urine Catheter - Catheter Urine Culture - Final Pseudomonas aeroginosa 05/10/22 06:30 Nasal Secretion SARS-CoV-2 Antigen (Rapid) - Final 05/07/22 20:03 Nasal Secretion SARS-CoV-2 Antigen (Rapid) - Final D/C Instructions Discharge Diet: No restrictions Discharge Activity: Return to Normal Activity, May Not Drive, May Shower and Use Walker May resume sexual activity in: No Restrictions Weight Bearing Status: Weight bearing as tolerated Call your doctor if you observe: Fever of 101 or Higher, Inability to urinate, Inability to have a bowel movement, Shortness of breath, Dizziness, Fainting spells, Swelling in the ankles, Chest pain and Uncontrolled pain Additional Instructions: Discharge home alone 05/18/2022, No needs. Please Follow Up With: GRANT KRUGER MD, PHD When: As scheduled. Meaningful Use Info Meaningful Use Diagnoses (Choose all that apply): None applicable Discharge Plan Admission Admit Date/Time: 05/07/22 15:02 Primary Reason for Your Visit: Debility. Attending Provider: Sly Sim Chi Primary Care Provider: Leobardo Heredia Consulting Providers: Kris Morgan Instructions Additional Instructions / Restrictions: Discharge home alone 05/18/2022, No needs. Discharge Orders/Prescriptions Prescriptions: New lisinopril 20 mg Tablet 20 mg PO DAILY 30 Days Qty: 30 0RF acetaminophen 500 mg Tablet 1,000 mg PO Q6H PRN PRN (Reason: Pain Score 1-10) Qty: 0 0RF tamsulosin 0.4 mg Capsule 0.4 mg PO 0830,1730 30 Days Qty: 60 0RF finasteride 5 mg Tablet 5 mg PO DAILY 30 Days Qty: 30 0RF olanzapine 5 mg Tablet,Disintegrating 5 mg PO BID 30 Days Qty: 60 0RF zonisamide [Zonegran] 100 mg capsule 200 mg PO DAILY Qty: 60 0RF Rx Instructions: Take at bedtime. Continued levothyroxine 100 mcg tablet 150 mcg PO DAILY aspirin [Adult Low Dose Aspirin] 81 mg tablet,delayed release (DR/EC) 81 mg PO DAILY Discontinued nitroglycerin 0.4 mg tablet, sublingual 0.4 mg SUBLINGUAL Q5-15M lisinopril-hydrochlorothiazide 10-12.5 mg Tablet 1 tab PO DAILY tamsulosin [Flomax] 0.4 mg capsule 0.4 mg PO DAILY Referrals / Follow Up: Grant Kruger [Other] - 06/07/22 3:40 pm (epilepsy/seizure follow-up) Jassi Naidu [Other] - 06/16/22 2:30 pm (post-encephalopathy follow-up) Leobardo Heredia MD [Primary Care Provider] - Disposition Disposition (needs filled in before D/C Order can be placed): Home, Self Care
[2022-05-18 09:25] VITALS: PULSE 64; RESP 18; O2SAT 98
--- NOTE | 2022-05-18 09:33 | CASEMGMT ---
Social Work Notified by Dr. Sim that pt is being discharged today. Dtr present in room receiving discharge instructions. Pt/dtr agreeable to [facility]. Dtr requesting [facility]. No DME needs. Referral made via phone and [facility] to [facility] PT/OT/SN. Plan: DC home 05/18, [facility] PT/OT/SN SYLVIE Holliday
[2022-05-18 10:07] VITALS: BP 113/64; PULSE 64; RESP 18; TEMP 36.7; O2SAT 98
[2022-05-18 11:00] VITALS: BP 113/64; PULSE 64; RESP 18; TEMP 36.7; O2SAT 98
--- NOTE | 2022-05-18 11:18 | MDS.RN ---
Information for the mds was obtained from review of the clinical record, interview of resident, staff, and direct observation of resident's care. No PDPM codes generated with completion of MDS assessment, error report sent to [facility] information systems.
--- NOTE | 2022-05-18 11:35 | NURSING ---
PT BLADDER SCANNED FOR 832 AFTER VOIDING 300. PT LET THIS NURSE STRAIGHT CATH HIM. 550 OUT. PT TOLERATED WELL. MODERNA BOOSTER GIVEN IN RIGHT DELT. PT TOLERATED WELL.
--- NOTE | 2022-05-18 11:37 | CASEMGMT ---
Social Work BIMS and PHQ-9 completed for MDS assessment. Mariely Walker ,FACILITIES CUSTODIAN COMBAT SYSTEMS OPERATOR
== END 2022-05-18 11:30 | disposition home or self-care (01) | DRG 99 ==
PROVIDERS: Admitting Provider Family Medicine Geriatric Medicine; PCP Family Medicine; Visit Provider Family Medicine Geriatric Medicine
DX: G04.81 Other encephalitis and encephalomyelitis (principal); G40.901 Epilepsy, unspecified, not intractable, with status epilepticus; I25.10 Atherosclerotic heart disease of native coronary artery without angina pectoris; E78.5 Hyperlipidemia, unspecified; E03.9 Hypothyroidism, unspecified; I10 Essential (primary) hypertension; I25.2 Old myocardial infarction; R33.8 Other retention of urine; N40.1 Benign prostatic hyperplasia with lower urinary tract symptoms; R13.10 Dysphagia, unspecified; Z79.899 Other long term (current) drug therapy; Z79.890 Hormone replacement therapy; Z79.82 Long term (current) use of aspirin; Z95.1 Presence of aortocoronary bypass graft; Z23 Encounter for immunization
CPT/HCPCS: 0134A; 36415; 80048; 81001; 85025; 87077; 87086; 87088; 87184; 87186; 87426; 87811; 91313; 92507; 92523; 92526; 92610; 97110; 97116; 97162; 97165; 97530; 97533; 97535; 97802

== ENCOUNTER → 2023-07-18 | Outpatient (CLI) | payer MEDICARE, OTHER, SELFPAY ==
--- NOTE | 2023-07-18 06:55 | RAD_ITS ---
STUDY: X-RAY CHEST REASON FOR EXAM: Male, 83 years old. Shortness of breath. TECHNIQUE: Frontal and lateral views of the chest. COMPARISON: April 12, 2022 FINDINGS: Stable cardiomegaly, sternotomy wires with coronary artery bypass changes, aortic tortuosity with calcification, prominent central pulmonary arteries, mild hyperinflation and diffuse moderate thoracic spondylosis. No active or acute cardiopulmonary disease. No abnormality of the visualized soft tissue structures of the upper abdomen. RAD/Chest PA and Lateral IMPRESSION: Stable chest with no acute or active cardiopulmonary disease. Electronically Signed: Timo Orellana MD at 9:00 EST ,
== END | disposition home or self-care (01) ==
LOC: RAD 06:55
PROVIDERS: PCP Family Medicine; Referring Provider Family Medicine; Visit Provider Family Medicine
DX: R06.02 Shortness of breath (principal)
CPT/HCPCS: 71046

== ENCOUNTER → 2023-07-19 | Outpatient (CLI) | payer MEDICARE, OTHER, SELFPAY ==
[2023-07-19 12:51] LABS: Hematocrit 41.8 % (40-54); Hemoglobin 13.8 g/dL (13.0-16.5); Mean Corpuscular Hgb 30.4 pg (27.0-32.0); Mean Corpuscular Volume 92.1 fL (80-94); Mean Platelet Vol. 9.5 fl (6.2-12.0); Platelet Count 323 K/mm3 (150-450); RBC Distribution Width CV 13.2 % (11.6-14.6); RBC Distribution Width SD 44.9 fl (35.1-43.9); Red Blood Count 4.54 M/mm3 (4.6-6.2)
[2023-07-19 13:24] LABS: ALB/GLOB Ratio 1.2 RATIO (0.9-2.4); AST(SGOT) 11 U/L (15-37); Alanine Aminotransfer ALT/SGPT 17 U/L (16-61); Albumin, Serum 3.8 g/dL (3.2-5.0); Alkaline Phosphatase 35 U/L (45-117); Anion Gap 6 (5-15); BUN 13 mg/dL (7-18); BUN/Creat Ratio 13.6 RATIO (10-20); Calcium,Total 9.4 mg/dL (8.5-10.1); Chloride 109 mmol/L (98-107); Creatinine, Serum 0.96 mg/dL (0.70-1.30); EST Glomerular Filtration Rate 80 mL/min (>60); Est Glom Filt Rate - Afr Amer 97 mL/min (>60); Globulin 3.3 g/dL (2.2-4.2); Glucose 136 mg/dL (74-106); PSA,Total- Diagnostic 3.52 ng/mL (0.0-4.0); Potassium 3.8 mmol/L (3.5-5.1); Protein, Total 7.1 g/dL (6.4-8.2); Sodium Level 137 mmol/L (136-145); T4 Free Direct 1.81 ng/dL (0.76-1.46); Thyroid Stim Hormone (TSH) 0.07 uIU/mL (0.358-3.74)
== END | disposition home or self-care (01) ==
LOC: LAB 12:34
PROVIDERS: PCP Family Medicine; Referring Provider Preventive Medicine Occupational Medicine; Visit Provider Preventive Medicine Occupational Medicine
DX: E03.9 Hypothyroidism, unspecified (principal); I10 Essential (primary) hypertension; R51.9 Headache, unspecified; I25.10 Atherosclerotic heart disease of native coronary artery without angina pectoris; N40.1 Benign prostatic hyperplasia with lower urinary tract symptoms; R11.0 Nausea; H61.21 Impacted cerumen, right ear; R97.20 Elevated prostate specific antigen [PSA]
CPT/HCPCS: 36415; 80053; 84153; 84439; 84443; 85027

== ENCOUNTER 2023-07-21 06:48 | Outpatient (CLI) | payer MEDICARE, OTHER, SELFPAY ==
[2023-07-21 08:37] LABS: Ferritin 341 ng/mL (26-388); Iron 93 ug/dL (65-175); Magnesium 2.4 mg/dL (1.6-2.6)
[2023-07-21 08:55] LABS: Vitamin B12 352 pg/mL (211-911); Vitamin D,25 Hydroxy 33.4 ng/mL
== END 2023-07-21 23:59 | disposition home or self-care (01) ==
PROVIDERS: PCP Family Medicine; Referring Provider Preventive Medicine Occupational Medicine; Visit Provider Preventive Medicine Occupational Medicine
DX: R53.83 Other fatigue (principal); D64.9 Anemia, unspecified; E55.9 Vitamin D deficiency, unspecified
CPT/HCPCS: 36415; 82306; 82607; 82728; 83540; 83735

== ENCOUNTER → 2023-09-07 | Outpatient (CLI) | payer MEDICARE, OTHER, SELFPAY ==
--- NOTE | 2023-09-07 06:42 | CT_ITS ---
STUDY: CT BRAIN WITHOUT CONTRAST REASON FOR EXAM: Male, 83 years old. HEADACHES, SEIZURES RADIATION DOSAGE (If Supplied By Facility): CTDIvol = ( 44.99 ) mGy, DLP = ( 796.11 ) mGycm TECHNIQUE: Transaxial CT imaging of the brain was performed without administration of intravenous contrast material. Individualized dose optimization techniques were used for this CT. COMPARISON: Comparison is made with prior study dated April 12, 2022. FINDINGS: Normal soft tissue structures. Normal calvarium. There is mild cerebral atrophy with widening of the extra-axial spaces and ventricular dilatation. There are areas of decreased attenuation within the white matter tracts of the supratentorial brain, consistent with microvascular disease changes. Normal basal ganglia and thalami. Normal brainstem. Normal cerebellum. There is no intracranial hemorrhage. There are no findings of an acute ischemic infarction. Atherosclerotic calcific plaque of the vertebral arteries and basilar artery. Stable ectasia of the tip of the basilar artery. There is opacification of the left maxillary sinus. There is a 1 cm polyp or retention cyst in the anterior aspect of the right sphenoid sinus. CT/Brain/Head without Contrast IMPRESSION: Opacification of the left maxillary sinus. 1 cm mucosal retention cyst versus polyp in the anterior right sphenoid sinus. Chronic involutional changes of the brain. Electronically Signed: Dony Parsons MD at 10:49 EST ,
== END | disposition home or self-care (01) ==
LOC: CT 06:41
PROVIDERS: PCP Family Medicine; Referring Provider Family Medicine; Visit Provider Family Medicine
DX: F32.A Depression, unspecified (principal); G40.909 Epilepsy, unspecified, not intractable, without status epilepticus; I25.10 Atherosclerotic heart disease of native coronary artery without angina pectoris; G44.219 Episodic tension-type headache, not intractable; N40.1 Benign prostatic hyperplasia with lower urinary tract symptoms
CPT/HCPCS: 70450

== ENCOUNTER 2024-11-29 21:35 | Inpatient (IN) | payer MEDICARE, OTHER, SELFPAY ==
[2024-11-29 21:37] VITALS: PULSE 74; RESP 18; TEMP 36.9; O2SAT 98; BMI 22.2
[2024-11-29 21:43] VITALS: BP 135/68; PULSE 77; RESP 18; TEMP 36.9; O2SAT 98
--- NOTE | 2024-11-29 22:11 | EKG12_ITS ---
Test Reason : DYSRHYTHMIA Blood Pressure : */* mmHG Vent. Rate : 59 BPM Atrial Rate : 59 BPM P-R Int : 198 ms QRS Dur : 84 ms QT Int : 446 ms P-R-T Axes : 79 0 77 degrees QTcB Int : 441 ms Sinus bradycardia with Premature atrial complexes Otherwise normal ECG Confirmed by ROBB SIBLEY, LYLY ([id number]), assignment editor MICHELINE OBRIEN ([id number]) on 11/30/2024 8:21:35 AM Referred By: John Miranda Confirmed By: LYLY ZAMUDIO MD
--- NOTE | 2024-11-29 22:12 | CT_ITS ---
PROCEDURE: BRAIN/HEAD WITHOUT CONTRAST 11/29/2024 REASON FOR EXAM: CONFUSION TECHNIQUE: Head CT without intravenous contrast. Coronal and Sagittal reconstruction series were provided. One or more dose reduction techniques were used (e.g., Automated exposure control, adjustment of the mA and/or kV according to patient size, use of iterative reconstruction technique. COMPARISON: CT brain 09/07/2023 and MRI brain 04/15/2022 FINDINGS: Examination is partially degraded by motion. No acute intracranial hemorrhage, mass, mass effect, midline shift or pathologic extra-axial fluid collection. Mild parenchymal atrophy with commensurate increase in CSF containing spaces. Patchy white matter hypodensities, patient demographics favor chronic microvascular ischemic changes. Paranasal sinuses and mastoid air cells are clear. The calvarium is grossly intact. CT/Brain/Head without Contrast IMPRESSION: CHRONIC CHANGES. NO ACUTE FINDINGS. Reading Location: [facility]
[2024-11-29] MEDS: 0.9% Normal Saline (1000mL) 1,000 ML 1000 ML IV (22:19)
--- NOTE | 2024-11-29 22:21 | EX.ED.CRITCA ---
HPI History of Present Illness Chief Complaint: Alt LOC Narrative Narrative: Chief complaint and HPI: Confusion. 84-year-old male with past medical history of HTN, HLD, hypothyroidism, BPH, previous CABG on ASA presents for evaluation of confusion. History taken by family member in the room as well as discharge paperwork daughter has given patient's confusion. Family member states that in 2021 patient had a similar episode of confusion in which he had a workup at [facility]. On discharge paperwork, he had a CT/MRI that was normal. 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 There they were concerned that the patient was in focal status and he was intubated. He had LP performed that was unremarkable. 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 However after treatment suspicion for immune mediated was low. Patient was ultimately discharged home on 200 mg zonisamide at bedtime. He follows with neurology Dr. Kruger at [facility]. Daughter states the patient has had no complaints. She states that she talks to him every night on the phone around 4 PM. She states the last time she talked to him was yesterday in which he was at his normal baseline. She states today he did not answer the phone so she went over to the house to check on him. States that he was alert and oriented x 1. She states that she saw that he has not taken any of his medication in 2 days. On presentation here patient is intermittently confused with questioning although he is alert and oriented x 3. He denies any fever, chills, shortness of breath, chest pain, abdominal pain, nausea, vomiting, dysuria, diarrhea, constipation. He is repetitive and answering his questions and has difficulty following commands although he can perform all of them. Review of systems: See HPI Medications: As listed on the chart Allergies: As listed on the chart PFSH: Per chart Vital signs: As listed on the chart. Reviewed. Physical exam: Gen: A&O x3, NAD Head: Normocephalic, atraumatic Eyes: No sclera icterus, conjunctiva clear, PERRL, EOMI ENT: Moist mucous membranes, No facial asymmetry Neck: Trachea midline, No JVD, no meningismus CV: RRR, no murmurs, no peripheral edema Resp: Lungs CTA BL, no w/r/c GI: Abd soft, non-distended, non-tender, no r/r/g Musc: Full ROM, no deformity, strength +5/5 in all extremities, no pronator drift, no ataxia with [id number] or [id number] Skin: Warm, dry, intact Neuro: Alert, oriented but intermittently confused with questioning and repetitive and answering, grossly intact, sensation intact, no focal deficits Psych: Cooperative [facility] Medical History (Updated 11/30/24 @ 00:[address] 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) Hypothyroidism Atherosclerotic heart disease [place] coronary artery w/angina pectoris Essential (primary) hypertension Hyperlipidemia History of non-ST elevation myocardial infarction (NSTEMI) Home Medications ?Medication ?Instructions ?Recorded ?Last Taken ?Type levothyroxine 100 mcg tablet 150 mcg PO DAILY thyroid 09/02/21 Unknown History aspirin 81 mg tablet,delayed 81 mg PO DAILY blood thinner 04/13/22 Unknown History release (Adult Low Dose Aspirin) acetaminophen 500 mg tablet 1,000 mg (2 x 500 mg) PO Q6H PRN 05/18/22 Unknown Rx PRN Pain Score 1-10 #0 tabs finasteride 5 mg tablet 5 mg PO DAILY 30 days #30 tabs 05/18/22 Unknown Rx lisinopril 20 mg tablet 20 mg PO DAILY 30 days #30 tabs 05/18/22 Unknown Rx olanzapine 5 mg disintegrating 5 mg PO BID 30 days #60 tabs 05/18/22 Unknown Rx tablet tamsulosin 0.4 mg capsule 0.4 mg PO 0830,1730 30 days #60 05/18/22 Unknown Rx caps zonisamide 100 mg capsule 200 mg (2 x 100 mg) PO DAILY #60 05/18/22 Unknown Rx (Zonegran) caps lisinopril 5 mg tablet 5 mg PO DAILY 11/29/24 Unknown History Allergy/AdvReac Type Severity Reaction Status Date / Time No Known Allergies Allergy Verified 08/06/22 12:23 Family History Father Cancer Mother Heart disease Surgical History History of coronary angioplasty (03/1995) History of cataract surgery History of appendectomy Hx of cholecystectomy H/O coronary artery bypass surgery (10/20/95) Social History household members: none Smoking Status: Never smoker alcohol intake: current alcohol intake frequency: holidays/special occasions only substance use type: does not use caffeine: Yes Type: coffee EXAM Physical Exam Const Vital Signs: 11/29/24 21:37 11/29/24 21:43 11/29/24 22:43 Temperature 98.5 F 98.5 F 98.5 F Temperature Source Oral Oral Oral Pulse Rate 74 77 71 Respiratory Rate 18 18 18 Blood Pressure 135/68 H 149/87 H Blood Pressure Mean 90 107 Pulse Ox 98 98 99 Oxygen Delivery Method Room Air Room Air Room Air 11/29/24 23:00 11/30/24 00:00 11/30/24 00:30 Temperature 98.5 F 98.5 F 98.2 F Temperature Source Oral Oral Oral Pulse Rate 80 65 Respiratory Rate 18 25 H Blood Pressure 149/78 H 139/71 H Blood Pressure Mean 101 93 Pulse Ox 99 99 Oxygen Delivery Method Room Air Room Air 11/30/24 00:42 Temperature 98.2 F Temperature Source Pulse Rate 56 L Respiratory Rate 19 H Blood Pressure 137/55 H Blood Pressure Mean 82 Pulse Ox 98 Oxygen Delivery Method MDM MDM MDM Narrative Medical decision making narrative: 84-year-old male with past medical history of HTN, HLD, hypothyroidism, BPH, previous CABG on ASA presents for evaluation of confusion. Diagnosed with seizures in the past patient is currently alert and oriented x 3 although he is intermittently confused with questioning and repetitive and answering. Difficulty in following commands although can perform all of them. Jylqm-[id number] glucose normal at 132. Differential diagnosis includes but is not limited to UTI, electrolyte abnormality, dehydration, ACS, pneumonia, substance intoxication. Suspect less likely seizure or CVA. NS bolus ordered. Shortly after CT imaging, patient became nauseous therefore Zofran ordered. Abdominal exam is unremarkable. CBC with mild leukocytosis 11.9. No anemia. CMP shows metabolic anion gap without lactic acidosis. Patient has renal insufficiency with creatinine of 1.3. Baseline in July 2023 was 0.96. Daughter does not know patient's baseline kidney function. This may be new TIANA. Given his metabolic anion gap, suspect dehydration. AST elevated at 50. Otherwise no transaminitis. Will add on alcohol. Family states that he only drinks occasionally. He has baseline elevated hyperbilirubinemia. TSH high at 15.6 however free T4 normal. Troponin 28, patient not having chest pain. Will get delta. UA positive for UTI. Rocephin ordered. Urine culture ordered. Ethanol level unremarkable. Urine drug screen pending. Patient symptoms are likely secondary to his UTI. Patient will warrant admission. Family updated on the results confirmed understanding plan. EKG: Interpreted by me/EM physician: EKG shows sinus bradycardia with PACs. Heart rate 59. No acute ischemic changes Diagnostic: Interpreted by me/EM physician: Chest x-ray without pneumonia, effusion, cardiomegaly, pneumothorax Impression: 1. Encephalopathy likely secondary to UTI 2. UTI 3. Renal insufficiency 4. Metabolic acidosis with anion gap, suspect dehydration 5. Mild AST transaminitis Lab Data Labs: Laboratory Results - last 24 hr 11/29/24 11/29/24 11/29/24 21:49 22:21 22:25 WBC 11.9 H RBC 4.47 L Hgb 14.1 Hct 40.1 MCV 89.7 MCH 31.5 MCHC 35.2 RDW Std Deviation 44.3 H RDW Coeff of Silvana 13.4 Plt Count 352 MPV 9.6 Immature Gran % (Auto) 0.500 Neut % (Auto) 78.4 H Lymph % (Auto) 10.8 L Cross % (Auto) 9.8 Eos % (Auto) 0.0 Baso % (Auto) 0.5 Absolute Neuts (auto) 9.4 H Absolute Lymphs (auto) 1.29 Nucleated RBC % 0 Sodium 135 Potassium 3.5 Chloride 103 Carbon Dioxide 14.7 L Anion Gap 17 H BUN 20 H Creatinine 1.30 H Estim Creat Clear Calc 42.38 L Est GFR (MDRD) Non-Af 55 L BUN/Creatinine Ratio 15.7 Glucose 133 H Lactic Acid 1.5 Calcium 9.5 Total Bilirubin 1.44 H AST 50 H ALT 14 Alkaline Phosphatase 46 Troponin T High Sens 28 H Troponin T Hi Sens 2 Hr Total Protein 6.9 Albumin 4.4 Globulin 2.6 Albumin/Globulin Ratio 1.7 TSH 15.600 H Free T4 1.30 Urine Color Urine Clarity Urine pH Ur Specific [place] Urine Protein Urine Glucose (UA) Urine Ketones Urine Occult Blood Urine Nitrite Urine Bilirubin Urine Urobilinogen Ur Leukocyte Esterase Urine RBC Urine WBC Ur Squamous Epith Cells Urine Bacteria Urine Mucus Ethyl Alcohol POC Glucose 132 H 11/29/24 11/29/24 11/30/24 23:38 23:51 00:10 WBC RBC Hgb Hct MCV MCH MCHC RDW Std Deviation RDW Coeff of Silvana Plt Count MPV Immature Gran % (Auto) Neut % (Auto) Lymph % (Auto) Cross % (Auto) Eos % (Auto) Baso % (Auto) Absolute Neuts (auto) Absolute Lymphs (auto) Nucleated RBC % Sodium Potassium Chloride Carbon Dioxide Anion Gap BUN Creatinine Estim Creat Clear Calc Est GFR (MDRD) Non-Af BUN/Creatinine Ratio Glucose Lactic Acid Calcium Total Bilirubin AST ALT Alkaline Phosphatase Troponin T High Sens Troponin T Hi Sens 2 Hr 24 H Total Protein Albumin Globulin Albumin/Globulin Ratio TSH Free T4 Urine Color Yellow Urine Clarity Clear Urine pH 6.0 Ur Specific [place] 1.020 Urine Protein 30 H Urine Glucose (UA) Normal Urine Ketones 50 H Urine Occult Blood 150 H Urine Nitrite Positive H Urine Bilirubin Negative Urine Urobilinogen 4 H Ur Leukocyte Esterase 500 H Urine RBC 0 SEEN Urine WBC 10-25 SEEN Ur Squamous Epith Cells 0 SEEN Urine Bacteria 2+ Urine Mucus 0 SEEN Ethyl Alcohol < 10.1 POC Glucose Radiography Diagnostic Testing: Clinical Impression(s) from Imaging Studies Brain CT 11/29/24 22:12 IMPRESSION: CHRONIC CHANGES. NO ACUTE FINDINGS. Reading Location: [facility] Chest X-Ray 11/29/24 22:41 IMPRESSION: NO ACUTE FINDINGS. Reading Location: [facility] Discharge Plan Triage Chief Complaint: Alt LOC ED Provider: John Miranda Dx/Rx/DC Orders Prescriptions: No Action levothyroxine 100 mcg tablet 150 mcg PO DAILY aspirin [Adult Low Dose Aspirin] 81 mg tablet,delayed release (DR/EC) 81 mg PO DAILY lisinopril 20 mg Tablet 20 mg PO DAILY 30 Days Qty: 30 0RF acetaminophen 500 mg Tablet 1,000 mg PO Q6H PRN PRN (Reason: Pain Score 1-10) Qty: 0 0RF tamsulosin 0.4 mg Capsule 0.4 mg PO 0830,1730 30 Days Qty: 60 0RF finasteride 5 mg Tablet 5 mg PO DAILY 30 Days Qty: 30 0RF olanzapine 5 mg Tablet,Disintegrating 5 mg PO BID 30 Days Qty: 60 0RF zonisamide [Zonegran] 100 mg capsule 200 mg PO DAILY Qty: 60 0RF Rx Instructions: Take at bedtime. lisinopril 5 mg tablet 5 mg PO DAILY Primary Care Provider: Leobardo Heredia Referrals: Leobardo Heredia MD [Primary Care Provider] - Print Language: Malawian
[2024-11-29 22:35] LABS: Absolute Lymphocyte Count 1.29 X10^3/uL (0.83-4.51); Absolute Neutrophil Count 9.4 X10^3/uL (2.0-7.7); Basophil# 0.06 X10^3/uL; Basophil% 0.5 % (0-1); Hematocrit 40.1 % (40-54); Hemoglobin 14.1 g/dL (13.0-16.5); Lymphocyte # 1.29 X10^3/ul (0.83-4.51); Lymphocyte % 10.8 % (19-41); Mean Corp Hgb Conc 35.2 g/dL (32-36); Mean Corpuscular Hgb 31.5 pg (27.0-32.0); Mean Corpuscular Volume 89.7 fL (80-94); Mean Platelet Vol. 9.6 fl (6.2-12.0); Monocyte# 1.17 X10^3/uL; Monocyte% 9.8 % (0-10); NRBC Flagged by Analyzer 0 % (0-5); Neutrophil # 9.35 X10^3/uL (2.7-7.7); Neutrophil % 78.4 % (47-70); Platelet Count 352 K/mm3 (150-450); RBC Distribution Width CV 13.4 % (11.6-14.6); RBC Distribution Width SD 44.3 fl (35.1-43.9); Red Blood Count 4.47 M/mm3 (4.6-6.2); White Blood Count 11.9 K/mm3 (4.4-11.0)
[2024-11-29 22:41] LABS: Bedside Glucose 132 mg/dL (74-106)
--- NOTE | 2024-11-29 22:41 | RAD_ITS ---
PROCEDURE: CHEST PA AND LATERAL 11/29/2024 REASON FOR EXAM: CONFUSION TECHNIQUE: Frontal and lateral views of the chest. COMPARISON: 07/18/2023 FINDINGS: Hardware: Status post median sternotomy. Heart: Heart size is mildly enlarged. Mediastinum: The mediastinal contour is unremarkable. Lungs: Bibasilar atelectasis. No focal consolidation. No pneumothorax. No pleural effusion. Bones: RAD/Chest PA and Lateral IMPRESSION: NO ACUTE FINDINGS. Reading [facility]
[2024-11-29 22:43] VITALS: BP 149/87; PULSE 71; RESP 18; TEMP 36.9; O2SAT 99
[2024-11-29 23:00] VITALS: BP 149/78; PULSE 80; RESP 18; TEMP 36.9; O2SAT 99
[2024-11-29 23:07] LABS: Lactic Acid 1.5 mmol/L (0.0-2.0)
[2024-11-29 23:07] LABS: ALB/GLOB Ratio 1.7 RATIO (0.9-2.4); AST(SGOT) 50 U/L (<=37); Alanine Aminotransfer ALT/SGPT 14 U/L (<=46); Albumin, Serum 4.4 g/dL (3.4-4.8); Alkaline Phosphatase 46 U/L (40-129); Anion Gap 17 (5-15); BUN 20 mg/dL (4-19); BUN/Creat Ratio 15.7 RATIO (10-20); Calcium,Total 9.5 mg/dL (7.6-11.0); Carbon Dioxide 14.7 mmol/L (21.0-32.0); Chloride 103 mmol/L (98-108); EST Glomerular Filtration Rate 55 (>60); Estimated Creatinine Clearance 42.38 ml/min (50-250); Globulin 2.6 g/dL (2.2-4.2); Glucose 133 mg/dL (70-99); Potassium 3.5 mmol/L (3.3-5.1); Protein, Total 6.9 g/dL (5.9-8.4); Sodium Level 135 mmol/L (133-145); Total Bilirubin 1.44 mg/dL (0.00-1.30); Troponin T High Sensitivity 28 ng/L (<=22)
[2024-11-29] MEDS: Ondansetron 4 MG/2 ML Vial IV (23:35)
[2024-11-29 23:56] LABS: Mucous, Urine 0 SEEN /hpf (<or=2+); Red Blood Cells-Urine 0 SEEN /hpf (0-5); Squamous Epithelial Cells - UA 0 SEEN /hpf (0-5)
[2024-11-29 23:58] LABS: Color, Urine Yellow (Yellow); Glucose, Dipstick Normal (Normal); Ketone-Dipstick 50 mg/dl (Negative); Leukocyte Esterase-Dipstick 500 /ul (Negative); Nitrite-Dipstick Positive (Negative); Occult Blood-Urine 150 /ul (Negative); Protein-Dipstick 30 mg/dl (Negative); Urine Bilirubin Dipstick Negative (Negative); Urine Clarity Clear (Clear); Urine Urobilinogen 4 mg/dl (Normal)
[2024-11-30] VITALS (12 sets, daily range): BP systolic 121–142; BP diastolic 55–82; PULSE 50–87; RESP 14–25; TEMP 36.3–37; O2SAT 94–99; BMI 20.4
[2024-11-30 00:11] LABS: Bacteria 2+ /hpf (None Seen); White Blood Cells 10-25 SEEN /hpf (0-5)
[2024-11-30 00:25] LABS: Alcohol, Blood (Medical)-Serum < 10.1 mg/dL (<=10.0)
[2024-11-30] MEDS: Ceftriaxone 1 GM/50 ML BAG IV ×2 (00:27→22:14)
[2024-11-30 00:36] LABS: Troponin T High Sens 2 HR 24 ng/L (<=22)
--- NOTE | 2024-11-30 00:40 | HP.PCM.HOS_ITS ---
HPI - General General Date of Admission: 11/30/24 Date of Service: 11/30/24 Chief Complaint: Confusion HPI Narrative The patient is an 84 y/o M w/ PMHx: Mood disorder, HTN, HLD, Hypothyroidism, BPH with obstructive pathology, CAD s/p CABG and PCI, Seizure disorder who presents to the [facility] ED on 11/30/24 with episodes of confusion noted to stare off with previous history of focal status with dialectic seizure activity previously requiring transfer to the [facility] and intubation prompting ED evaluation with family reporting that patient has not been taking his medications over the last 2 days including his antiepileptic regimen possibly because of his confusion. At home per family patient had been ANO x 1 but is typically ANO x 4. Workup in the ED included T98.5, heart rate 74, BP 135/68, respiratory rate 18, 98% on room air with most recent repeat vitals T98.2 Oral, heart rate 65, BP 139/71, respiratory rate 18, 99% on room air, CBC with WBC 11.9, hemoglobin 14.1, platelet 352 with left shift, CMP with carbon oxide 14.7, anion gap 17, BUN/2020/1.30, GFR 55, glucose 133, lactic acid 1.5, T. bili 1.44, AST/ALT 50/14, initial troponin 28, delta troponin pending upon request evaluation of patient, TSH 15.60 however free T4 1.30, urinalysis with specific roughly 1.020, protein 30, ketones 50, occult blood 150, nitrate positive, leukocyte Estrace 500 with urine WBCs 10-25 with 2+ urine bacteria, ethyl alcohol less than 10.1, UDS pending upon requested evaluation of patient, CT of the brain with no acute cardiopulmonary findings with chronic changes, chest x- ray with no acute findings. In the ED patient administered 1 L normal saline, Zofran 4 mg IV x 1, Rocephin 1 g IV x 1. [facility] Medical History (Updated 11/30/24 @ 00:[address] 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) Hypothyroidism Atherosclerotic heart disease [place] coronary artery w/angina pectoris Essential (primary) hypertension Hyperlipidemia History of non-ST elevation myocardial infarction (NSTEMI) Home Medications ?Medication ?Instructions ?Recorded ?Last Taken ?Type levothyroxine 100 mcg tablet 150 mcg PO DAILY thyroid 09/02/21 Unknown History aspirin 81 mg tablet,delayed 81 mg PO DAILY blood thin ner 04/13/22 Unknown History release (Adult Low Dose Aspirin) acetaminophen 500 mg tablet 1,000 mg (2 x 500 mg) PO Q 6H PRN 05/18/22 Unknown Rx PRN Pain Score 1-10 #0 tabs finasteride 5 mg tablet 5 mg PO DAILY 30 days #30 ta bs 05/18/22 Unknown Rx lisinopril 20 mg tablet 20 mg PO DAILY 30 days #30 t abs 05/18/22 Unknown Rx olanzapine 5 mg disintegrating 5 mg PO BID 30 days #60 tabs 05/18/22 Unknown Rx tablet tamsulosin 0.4 mg capsule 0.4 mg PO 0830,1730 30 days #60 05/18/22 Unknown Rx caps zonisamide 100 mg capsule 200 mg (2 x 100 mg) PO DAILY #60 05/18/22 Unknown Rx (Zonegran) caps lisinopril 5 mg tablet 5 mg PO DAILY 11/29/24 Unkno wn History Allergy/AdvReac Type Severity Reaction Status Date / Time No Known Allergies Allergy Verified 08/06/22 12:23 Family History Father Cancer Mother Heart disease Surgical History History of coronary angioplasty (03/1995) History of cataract surgery History of appendectomy Hx of cholecystectomy H/O coronary artery bypass surgery (10/20/95) Social History household members: none Smoking Status: Never smoker alcohol intake: current alcohol intake frequency: holidays/special occasions only substance use type: does not use caffeine: Yes Type: coffee ROS Review of Systems ROS Unobtainable: due to encephalopathy Vital Signs Vital Signs Vital Signs: 11/29/24 21:37 11/29/24 21:43 11/29/24 22:43 Temperature 98.5 F 98.5 F 98.5 F Temperature Source Oral Oral Oral Pulse Rate 74 77 71 Respiratory Rate 18 18 18 Blood Pressure 135/68 H 149/87 H Blood Pressure Mean 90 107 Pulse Ox 98 98 99 Oxygen Delivery Method Room Air Room Air Room Air 11/29/24 23:00 11/30/24 00:00 11/30/24 00:30 Temperature 98.5 F 98.5 F 98.2 F Temperature Source Oral Oral Oral Pulse Rate 80 65 Respiratory Rate 18 25 H Blood Pressure 149/78 H 139/71 H Blood Pressure Mean 101 93 Pulse Ox 99 99 Oxygen Delivery Method Room Air Room Air Weight Weight: 150 lb 12.739 oz Body Mass Index (BMI) 22.2 Physical Exam Narrative Physical Examination: General: Awake, not markedly alert, oriented to self, was interactive and will discuss it with family but still not at baseline, follows some commands but minimally, seated upright in the ED bed, no acute distress, significantly encephalopathic. Skin: Normal color, normal turgor, no icterus, no cyanosis except for occasional stage ecchymoses, abrasion HEENT: AT/NC, EOMI, PERRLA, dry MM, no carotid bruits or JVD noted. Lungs: Diminished, greater bases, appropriate effort, no evidence of any distress, no rales, ronchi or wheezing. Heart: Regular rate and rhythm; no gallop, rub audible. Abdomen: Soft, NTTP, ND, hyperactive BS, no appreciated HSM. Extremities: No cyanosis, clubbing, or edema. Neurological: Awake, not markedly alert, oriented to self, was interactive and will discuss it with family but still not at baseline, follows some commands but minimally, seated upright in the ED bed, no acute distress, significantly encephalopathic, cognitive function not baseline intact; pupils equally reactive to light and accommodation, cranial nerves difficult to assess given not following commands well, spontaneously moving extremities, strength severely globally decreased. Psychiatric: Affect appears flat, fatigued, encephalopathic, no acute evidence of depressive or anxiety feelings but does have underlying mood disorder history. Results Lab / Micro Data 11/29/24 21:49 11/29/24 21:49 Labs: Laboratory Results - last 24 hr 11/29/24 21:49: WBC 11.9 H, RBC 4.47 L, Hgb 14.1, Hct 40.1, MCV 89.7, MCH 31.5, MCHC 35.2, RDW Std Deviation 44.3 H, RDW Coeff of Silvana 13.4, Plt Count 352, MPV 9.6, Immature Gran % (Auto) 0.500, Neut % (Auto) 78.4 H, Lymph % (Auto) 10.8 L, [place] % (Auto) 9.8, Eos % (Auto) 0.0, Baso % (Auto) 0.5, Absolute Neuts (auto) 9.4 H, Absolute Lymphs (auto) 1.29, Nucleated RBC % 0, Sodium 135, Potassium 3.5, Chloride 103, Carbon Dioxide 14.7 L, Anion Gap 17 H, BUN 20 H, Creatinine 1.30 H, Estim Creat Clear Calc 42.38 L, Est GFR (MDRD) Non-Af 55 L, BUN/Creatinine Ratio 15.7, Glucose 133 H, Calcium 9.5, Total Bilirubin 1.44 H, A ST 50 H, ALT 14, Alkaline Phosphatase 46, Troponin T High Sens 28 H, Total Protein 6.9, Albumin 4.4, Globulin 2.6, Albumin/Globulin Ratio 1.7, TSH 15.600 H , Free T4 1.30 11/29/24 22:21: POC Glucose 132 H 11/29/24 22:25: Lactic Acid 1.5 11/29/24 23:38: Ethyl Alcohol < 10.1 11/29/24 23:51: Urine Color Yellow, Urine Clarity Clear, Urine pH 6.0, Ur Specific [place] 1.020, Urine Protein 30 H, Urine Glucose (UA) Normal, Urine Ketones 50 H, Urine Occult Blood 150 H, Urine Nitrite Positive H, Urine Bilirubin Negative, Urine Urobilinogen 4 H, Ur Leukocyte Esterase 500 H, Urine RBC 0 SEEN, Urine WBC 10-25 SEEN, Ur Squamous Epith Cells 0 SEEN, Urine Bacteria 2+, Urine Mucus 0 SEEN 11/30/24 00:10: Troponin T Hi Sens 2 Hr 24 H Imaging Radiology Impression Brain CT 11/29/24 22:12 IMPRESSION: CHRONIC CHANGES. NO ACUTE FINDINGS. Reading Location: [facility] Chest X-Ray 11/29/24 22:41 IMPRESSION: NO ACUTE FINDINGS. Reading Location: [facility] Assessment & Plan Assessment/Plan (1) Encephalopathy acute: (2) UTI (urinary tract infection): PLAN: Plan The patient is an 84 y/o M w/ PMHx: Mood disorder, HTN, HLD, Hypothyroidism, BPH with obstructive pathology, CAD s/p CABG and PCI, Seizure disorder who presents to the [facility] ED on 11/30/24 with episodes of confusion noted to stare off with previous history of focal status with dialectic seizure activity previously requiring transfer to the [facility] and intubation prompting ED evaluation with family reporting that patient has not been taking his medications over the last 2 days including his antiepileptic regimen possibly because of his confusion. #1. Acute Encephalopathy, possibly multifactorial as noted #2 in addition to Acute Complicated Urinary Tract Infection: Will admit to PCU, UA upon ED evaluation remarkable, pending UCx, continue judicious IVFs, monitor I/Os, continue IV Rocephin w/ transition as able pending sensitivities and speciation. PT/OT/case management consulted for discharge planning. Will continue evaluation and treatment for possible breakthrough seizure activity given infectious presentation in addition to possibly missing 2 days of antiepileptic medications with immediate reinitiation of antiepileptic medication. UDS pending upon evaluation. #2. Disorder with questionable breakthrough seizures with with possible missed dosing x 2 days of antiepileptic regimen: Uncertain if patient is encephalopathic secondary to infection or potentially had a breakthrough seizure because of infection in addition to not taking his antiepileptic medication, will maintain on seizure precautions, aspiration precautions, will reinitiate patient Zonegran regimen immediately, pending clinical improvement may need to consider EEG and further imaging with MRI if not improving as well as neurology involvement but again acute infectious presentation also. Patient following with neurologist at [facility] Dr. Kruger. #3. 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 #4. Hypothyroidism with abnormal TSH: Will continue patient levothyroxine regimen, TSH 15.6 however free T41.30, subclinical and given acute infectious presentation would benefit from repeat TSH studies outpatient once clinically improved. #5. CAD with indeterminate cardiac enzyme: Status post CABG (CABG x 4 LOPES-LAD, Free BRIA-D1, Left Radial Artery LCx, Right gastroepiploic RPDA 09/1995) and PCI, will continue aspirin, lisinopril, not on statin therapy nor beta-lianna therapy. Admission enzymes with initial troponin 28 with repeat delta 24, will maintain on telemetry in the PCU but low suspicion for any acute cardiac underlying etiology. #6. Hypertension: Continue home regimen including lisinopril, PRN hydralazine. #7. Hyperlipidemia: Currently not on statin therapy, defer to outpatient. #8. Mood disorder: Previously had been on olanzapine however per discussion with family this had been discontinued nearly 1 year previously. #9. BPH with obstructive pathology: Will continue patient home finasteride and Flomax regimen, monitor for urinary retention. #10. DVT prophylaxis: Lovenox. #11. CODE status: Patient GEREMIAS is his daughter who is present and living will is currently in place. Discussed CODE status at length including difference between FULL code, DNR-CCA and DNR-CC status. Following discussions about the differences in these status, requested Full Code status. Charges/Coding Visit Charges Inpatient E&M: 67121 Init Hosp L3
[2024-11-30 01:03] LABS: Magnesium 1.8 mg/dL (1.5-2.2)
[2024-11-30 01:14] LABS: Amphetamine Urine NEGATIVE (<1000 ng/mL); Barbiturate Urine NEGATIVE (< 200 ng/mL); Benzodiazepine Urine NEGATIVE (< 200 ng/mL); Buprenorphine Urine NEGATIVE (< 200 ng/mL); Cocaine Urine NEGATIVE (< 300 ng/mL); Fentanyl, Urine NEGATIVE; Methadone Urine NEGATIVE (< 300 ng/mL); Opiates Urine NEGATIVE (< 300 ng/mL); Oxycodone, Urine NEGATIVE (< 100 ng/mL); PCP Urine NEGATIVE (< 25 ng/mL); THC Urine NEGATIVE (< 50 ng/mL)
[2024-11-30] MEDS: 0.9% Normal Saline (1000mL) 1,000 ML 75 ML IV (01:51)
[2024-11-30] MEDS: 0.9% Saline Lock 10 ML Syringe IV (01:51)
[2024-11-30] MEDS: Acetaminophen 325 MG Tablet 650 MG PO (04:23)
[2024-11-30 05:15] LABS: Absolute Lymphocyte Count 1.97 X10^3/uL (0.83-4.51); Absolute Neutrophil Count 8.3 X10^3/uL (2.0-7.7); Basophil# 0.05 X10^3/uL; Basophil% 0.4 % (0-1); Eosinophil# 0.02 X10^3/uL; Eosinophils% 0.2 % (0-5); Hematocrit 38.4 % (40-54); Hemoglobin 13.3 g/dL (13.0-16.5); Lymphocyte # 1.97 X10^3/ul (0.83-4.51); Mean Corp Hgb Conc 34.6 g/dL (32-36); Mean Corpuscular Hgb 31.4 pg (27.0-32.0); Mean Corpuscular Volume 90.8 fL (80-94); Mean Platelet Vol. 9.8 fl (6.2-12.0); Monocyte# 1.23 X10^3/uL; Monocyte% 10.6 % (0-10); NRBC Flagged by Analyzer 0 % (0-5); Neutrophil # 8.27 X10^3/uL (2.7-7.7); Neutrophil % 71.5 % (47-70); Platelet Count 323 K/mm3 (150-450); RBC Distribution Width CV 13.4 % (11.6-14.6); RBC Distribution Width SD 44.8 fl (35.1-43.9); Red Blood Count 4.23 M/mm3 (4.6-6.2); White Blood Count 11.6 K/mm3 (4.4-11.0)
[2024-11-30] MEDS: Levothyroxine 100 MCG Tablet PO (05:42)
[2024-11-30 06:09] LABS: ALB/GLOB Ratio 1.8 RATIO (0.9-2.4); AST(SGOT) 52 U/L (<=37); Alanine Aminotransfer ALT/SGPT 15 U/L (<=46); Albumin, Serum 4.1 g/dL (3.4-4.8); Alkaline Phosphatase 41 U/L (40-129); Anion Gap 13 (5-15); BUN 17 mg/dL (4-19); BUN/Creat Ratio 17.3 RATIO (10-20); Calcium,Total 9.1 mg/dL (7.6-11.0); Carbon Dioxide 16.9 mmol/L (21.0-32.0); Chloride 107 mmol/L (98-108); Creatinine, Serum 0.98 mg/dL (0.70-1.20); EST Glomerular Filtration Rate 77 (>60); Estimated Creatinine Clearance 54.66 ml/min (50-250); Globulin 2.3 g/dL (2.2-4.2); Glucose 112 mg/dL (70-99); Potassium 3.7 mmol/L (3.3-5.1); Protein, Total 6.5 g/dL (5.9-8.4); Sodium Level 136 mmol/L (133-145)
--- NOTE | 2024-11-30 08:19 | US_ITS ---
PROCEDURE: KIDNEY AND BLADDER (USKI), 11/30/2024 REASON FOR EXAM: UTI, EVAL FOR PYELO TECHNIQUE: Grayscale and color/spectral doppler ultrasound of the kidneys and bladder was performed. COMPARISON: None FINDINGS: Examination reportedly limited by patient condition. Right kidney: 10.3 cm in length. No visualized mass, calculus, or hydronephrosis. Left kidney: 10.3 cm in length. 2 x 2 x 3 mm echogenic nonshadowing focus, possible nonobstructing intrarenal calculus versus prominent renal sinus fat. No visualized mass or hydronephrosis. Bladder: Estimated volume 268 mL. Cystic lesion along the anterior bladder measures 6.2 x 6.0 x 5.5 cm with some mass-effect on the bladder. Other: Slightly echogenic appearance of the visualized liver. US/Kidney and Bladder IMPRESSION: 1. No hydronephrosis. Note sensitivity for pyelonephritis is very limited by u ltrasound. Correlate with urinalysis. CT with contrast could be performed to evaluate for abnormal enhancement, as clinically indicated. 2. 6.2 cm cystic lesion along the anterior bladder with mass-effect, uncertain etiology. Recommend dedicated pelvic ultrasound and/or CT pelvis with contrast, which could be on an outpatient basis. 3. Correlate for clinical and laboratory evidence of chronic liver disease such as hepatic steatosis. 4. Additional description as above. Pelvic Reading Location: [id number]
[2024-11-30] MEDS: Haloperidol Lactate 5 MG/ML Vial 2 MG IM (09:06)
[2024-11-30] MEDS: Tamsulosin HCl 0.4 MG Capsule PO ×2 (09:38→16:25)
[2024-11-30] MEDS: Menthol/Lanolin/Calamine/Znox 113 GM Tube 1 APPLIC TOPICAL ×2 (09:38→14:25)
[2024-11-30] MEDS: Aspirin E.C. 81 MG Tablet PO (09:38)
[2024-11-30] MEDS: Lisinopril 5 MG Tablet PO (09:39)
[2024-11-30] MEDS: Finasteride 5 MG Tablet PO (09:39)
[2024-11-30] MEDS: Enoxaparin 40 MG/0.4 ML Syringe SC (09:39)
--- NOTE | 2024-11-30 10:42 | PN.HOSP_ITS ---
Reason for Visit Reason for Visit: Diagnoses Encephalopathy, unspecified (11/30/24) Urinary tract infection, site not specified (11/30/24) Subjective Subjective Saw patient at bedside this morning, daughter present. Patient was sitting up in bedside chair comfortably and in no acute distress. Patient was making appropriate eye contact with me but was answering questions with repetitive responses that were fairly nonsensical. He was only alert and oriented x 1 to person. However, his daughter notes that he does look improved today compared to yesterday. When she saw him yesterday he was more zoned out and today he is much more interactive. Patient denies any acute pain or discomfort currently. No other acute concerns this morning. Objective Data Objective Data Vital Signs: Vital Signs Temp Pulse Resp BP Pulse Ox O2 Del Method 97.4 F L 87 18 142/82 H 96 Room Air 11/30/24 09:01 11/30/24 09:01 11/30/24 09:01 11/30/24 09:01 11/30/24 09:01 11/30/24 09:01 Oxygen Delivery Method Room Air Weight: 66.5 kg Body Mass Index (BMI) 20.4 Intake & Output: Intake and Output for Last 24 Hours 11/28/24 11/29/24 11/30/24 23:59 23:59 23:59 Intake Total 1000 / 1000 50 / 50 Output Total 0 / 0 Balance 1000 / 1000 50 / 50 Lab / Micro Data 11/30/24 04:17 11/30/24 04:17 Labs: Laboratory Results - last 24 hr 11/29/24 21:49: WBC 11.9 H, RBC 4.47 L, Hgb 14.1, Hct 40.1, MCV 89.7, MCH 31.5, MCHC 35.2, RDW Std Deviation 44.3 H, RDW Coeff of Silvana 13.4, Plt Count 352, MPV 9.6, Immature Gran % (Auto) 0.500, Neut % (Auto) 78.4 H, Lymph % (Auto) 10.8 L, [place] % (Auto) 9.8, Eos % (Auto) 0.0, Baso % (Auto) 0.5, Absolute Neuts (auto) 9.4 H, Absolute Lymphs (auto) 1.29, Nucleated RBC % 0, Sodium 135, Potassium 3.5, Chloride 103, Carbon Dioxide 14.7 L, Anion Gap 17 H, BUN 20 H, Creatinine 1.30 H, Estim Creat Clear Calc 42.38 L, Est GFR (MDRD) Non-Af 55 L, BUN/Creatinine Ratio 15.7, Glucose 133 H, Calcium 9.5, Total Bilirubin 1.44 H, A ST 50 H, ALT 14, Alkaline Phosphatase 46, Troponin T High Sens 28 H, Total Protein 6.9, Albumin 4.4, Globulin 2.6, Albumin/Globulin Ratio 1.7, TSH 15.600 H , Free T4 1.30 11/29/24 22:21: POC Glucose 132 H 11/29/24 22:25: Lactic Acid 1.5 11/29/24 23:38: Ethyl Alcohol < 10.1 11/29/24 23:51: Urine Color Yellow, Urine Clarity Clear, Urine pH 6.0, Ur Specific [place] 1.020, Urine Protein 30 H, Urine Glucose (UA) Normal, Urine Ketones 50 H, Urine Occult Blood 150 H, Urine Nitrite Positive H, Urine Bilirubin Negative, Urine Urobilinogen 4 H, Ur Leukocyte Esterase 500 H, Urine RBC 0 SEEN, Urine WBC 10-25 SEEN, Ur Squamous Epith Cells 0 SEEN, Urine Bacteria 2+, Urine Mucus 0 SEEN, Urine Opiates Screen NEGATIVE, U Buprenorphine Qual NEGATIVE, Ur Oxycodone Screen NEGATIVE, Urine Methadone Screen NEGATIVE, Urine Fentanyl Screen NEGATIVE, Ur Barbiturates Screen NEGATIVE, Ur Phencyclidine Scrn NEGATIVE, Ur Amphetamines Screen NEGATIVE, U Benzodiazepines Scrn NEGATIVE, Urine Cocaine Screen NEGATIVE, U Cannabinoids Screen NEGATIVE 11/30/24 00:10: Magnesium 1.8, Troponin T Hi Sens 2 Hr 24 H 11/30/24 04:17: WBC 11.6 H, RBC 4.23 L, Hgb 13.3, Hct 38.4 L, MCV 90.8, MCH 31.4, MCHC 34.6, RDW Std Deviation 44.8 H, RDW Coeff of Silvana 13.4, Plt Count 323, MPV 9.8, Immature Gran % (Auto) 0.300, Neut % (Auto) 71.5 H, Lymph % (Auto) 17.0 L, [place] % (Auto) 10.6 H, Eos % (Auto) 0.2, Baso % (Auto) 0.4, Absolute Neuts (auto) 8.3 H, Absolute Lymphs (auto) 1.97, Nucleated RBC % 0, Sodium 136, Potassium 3.7, Chloride 107, Carbon Dioxide 16.9 L, Anion Gap 13, BUN 17, Creatinine 0.98, Estim Creat Clear Calc 54.66, Est GFR (MDRD) Non-Af 77, BUN/Creatinine Ratio 17.3, Glucose 112 H, Calcium 9.1, Total Bilirubin 1.40 H, A ST 52 H, ALT 15, Alkaline Phosphatase 41, Total Protein 6.5, Albumin 4.1, Globulin 2.3, Albumin/Globulin Ratio 1.8 Radiography Diagnostic Testing: Radiology Impression Brain CT 11/29/24 22:12 IMPRESSION: CHRONIC CHANGES. NO ACUTE FINDINGS. Reading Location: [facility] Chest X-Ray 11/29/24 22:41 IMPRESSION: NO ACUTE FINDINGS. Reading Location: [facility] Physical Exam Const alert, no apparent distress and average body habitus Constitutional Narrative: Elderly male, alert and oriented x 1 to person, good level of alertness noted (improved from admission), making appropriate eye contact but not answering questions appropriately, otherwise sitting up comfortably in bedside chair and in no acute distress. General Appearance: cooperative and comfortable HEENT normocephalic, head/scalp atraumatic, hearing grossly normal bilaterally, nasal mucous membranes and turbinates normal and moist oral mucous membranes Eyes PERRL, EOMs intact bilaterally and conjunctivae normal Neck full ROM Chest inspection of chest normal Resp normal respiratory effort, normal air movement, no use of accessory muscles and clear to auscultation bilaterally Cardio regular rate, regular rhythm, no murmurs and peripheral pulses 2+ throughout GI normal to inspection, nondistended, normoactive bowel sounds, soft to palpation, non-tender and non-distended Bladder / Kidney Exam: No bladder normal to palpation and No no CVA tenderness Back/Spine normal ROM Extremity normal to inspection, full ROM and no pedal edema Skin no rashes or lesions noted Assessment & Plan Assessment/Plan (1) Encephalopathy acute: (2) UTI (urinary tract infection): PLAN: Plan Patient is an 84-year-old male who presented to [facility] ED on 11/29/2024 with confusion. 1. Acute metabolic encephalopathy suspected secondary to UTI, history of BPH with obstructive symptoms ? Presented with worsening confusion for last 1 to 2 days. Lives at home alone, daughter is very involved and talks to him daily. Normally alert and oriented x 3 with good functional status. Only alert and oriented x 1 with some somnolence noted on admission. CT brain unremarkable. Appears most consistent with confusion secondary to UTI at this time. UA infectious appearing on admit and mild leukocytosis noted. Urine culture pending. Renal/bladder ultrasound with no evidence of hydronephrosis and patient with good urine output since admission. Remains A&O x 1 to person on 11/30 but per daughter, good improvement in energy level. Will continue to treat with IV ceftriaxone, follow-up urine culture. Seems less likely secondary to seizure disorder as below but if no improvement over the next few days, we will plan to expand workup further. Continue home Flomax and finasteride. 2. 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 Had similar presentation back in 2021 that was concerning for seizure activity and he was transferred to the [facility] for further management at that time. Has been stable on antiepileptics since then. Per daughter, patient missed doses of zonisamide for the past 2 days due to his confusion as above. Encephalopathy as above seems more likely due to UTI as opposed to seizure activity. However, if patient does not improve in the next few days can consider EEG plus or minus MRI for further evaluation. Continue home zonisamide. 3. Cystic lesion of bladder ? Renal/bladder ultrasound on 11/30 showed 6.2 x 6.0 x 5.5 cm cystic lesion along the anterior bladder with some mass effect on the bladder noted. CT abdomen pelvis with IV contrast ordered for further evaluation, will follow-up. 4. Mild TIANA, resolved ? Creatinine 1.30 on admit, improved to baseline 0.9 with IV fluid resuscitation. 5. History of CAD with CABG, hypertension ? Stable. Continue home aspirin and lisinopril. 6. Hypothyroidism ? TSH elevated at 15.6 but free T4 normal at 1.30. Continue home Synthroid. DVT prophylaxis: Lovenox CODE STATUS: Full code, verified Expected disposition: Home, 2 to 3 days Total clinical time spent by myself addressing the patient's medical issues, reviewing all the data, and collaborating with patient's care team: 35 minutes. Charges/Coding Visit Charges Inpatient E&M: 22612 Subs Hosp L2
--- NOTE | 2024-11-30 11:50 | CASEMGMT ---
ALICE PRITCHETT Assessment Face to Face with patient for initial transition planning/care coordination assessment. ALICE PRITCHETT introduced self and role at [facility]. Pt is currently disoriented and is unable to answer this ALICE PRITCHETT questions for assessment accordingly. Pt Sonal KNIGHT (Daughter) at bedside and willing to help. Care providers, pharmacy, and demographics verified. Admitting dx: Encephalopathy, UTI LACE Strata: 1 PCP: Leobardo Heredia Specialists: Saskia ([facility]) Preferred Pharmacy: [facility] Insurance: [employer] A/B, [employer] Supplement Prescription Benefit: Yes LNOK: Sonal Esparza (Jamie), Vidal Esparza ([facility] Living Arrangements: Pt lives alone in a single story home with a flat entrance. Sonal states that her and Vidal live right next door and that they visit the pt every day. ADLs/IADLs: Sonal states that the pt is entirely independent at baseline. Sonal does assist with organizing the pt's medications. Transportation: Self at baseline, family. Denies concerns DME: Grab bars in the shower. Sonal denies any further DME uses or needs at this time. HHC/SNF: Hx at [facility]. Denies HH hx Plan: Anticipate return home with family support and no additional needs once the pt's mentation improves and is medically ready. At this time, the pt's daughter states that the pt will not need or want HHC, OP Tx, or SNF placement. Current 6-Click score is 21 and therapy is pending. Pt daughter states that the pt has plenty of family support at home and denies further questions, concerns, or needs at this time. Report given to FULL DECATOR OPERATOR CM. Dayday Varghese RN, CM
--- NOTE | 2024-11-30 13:25 | CT_ITS ---
PROCEDURE: ABDOMEN/PELVIS W IV CONT ONLY 11/30/2024 REASON FOR EXAM: LARGE CYSTIC LESION ON ANTERIOR BLADDER WALL ON US TECHNIQUE: Abdomen and pelvis CT was obtained with intravenous contrast, in venous and delayed phase imaging. Coronal and Sagittal reconstruction series were provided. PATIENT PREPARATION: Per protocol ORAL CONTRAST TYPE: None. CONTRAST: Isovue 370 VOLUME: 100 mL One or more dose reduction techniques were used (e.g., Automated exposure control, adjustment of the mA and/or kV according to patient size, use of iterative reconstruction technique. RADIATION DOSE SUMMARY: CTDlvol: 50 mGy DLP: 850 mGycm COMPARISON: Same day renal ultrasound. FINDINGS: Lung bases: Partially calcified right posterior pleural plaque. Bibasilar atelectasis. Prior median sternotomy and CABG. The heart is normal in size. Liver: The liver is normal in size without suspicious hepatic mass. The major portal veins are patent. No biliary ductal dilation. Gallbladder: Prior cholecystectomy. Spleen: Normal size. Pancreas: Mildly atrophic. Adrenals: No adrenal mass. Kidneys: Tiny bilateral renal cysts and additional hypodensities. No hydronephrosis or nephrolithiasis. Bladder: The urinary bladder is moderately distended and unremarkable. Reproductive Organs: Mildly enlarged prostate with dystrophic calcifications. Partially visualized penile prosthesis with inflation reservoir pump within the right lower quadrant adjacent to the urinary bladder. Bowel: The bowel loops are normal in caliber. No ascites or pneumoperitoneum. Prior appendectomy. Mild distal colonic diverticulosis. Lymph nodes: No suspicious lymphadenopathy. Vasculature: Severe mixed atherosclerosis of the aortoiliac vessels. Bones: Thoracolumbar spondylosis. Chronic rib fracture deformities. CT/Abdomen/Pelvis W IV Cont ONLY IMPRESSION: 1. No acute abdominopelvic finding or suspicious bladder mass. 2. Partially visualized penile prosthesis with inflation reservoir pump within the right lower quadrant adjacent to the urinary bladder. Reading Location: [id number]
[2024-11-30] MEDS: Senna/Docusate Sodium 1 Tablet 2 TABLET PO (16:25)
[2024-11-30] MEDS: ZONISAMIDE 100 MG CAPSULE 200 MG PO (22:14)
[2024-11-30] MEDS: MELATONIN 3 MG TABLET PO (22:20)
[2024-12-01 03:00] VITALS: BP 123/58; PULSE 80; RESP 16; TEMP 36.8; O2SAT 98
[2024-12-01 03:39] VITALS: BMI 20.4
[2024-12-01 04:52] LABS: Hemoglobin 12.7 g/dL (13.0-16.5); Mean Corp Hgb Conc 34.3 g/dL (32-36); Mean Corpuscular Hgb 31.8 pg (27.0-32.0); Mean Corpuscular Volume 92.5 fL (80-94); Mean Platelet Vol. 9.6 fl (6.2-12.0); Platelet Count 278 K/mm3 (150-450); RBC Distribution Width CV 13.5 % (11.6-14.6); RBC Distribution Width SD 45.9 fl (35.1-43.9)
[2024-12-01 05:15] LABS: Anion Gap 10 (5-15); BUN 12 mg/dL (4-19); BUN/Creat Ratio 13.2 RATIO (10-20); Calcium,Total 8.8 mg/dL (7.6-11.0); Carbon Dioxide 19.4 mmol/L (21.0-32.0); Chloride 107 mmol/L (98-108); Creatinine, Serum 0.89 mg/dL (0.70-1.20); EST Glomerular Filtration Rate 86 (>60); Glucose 107 mg/dL (70-99); Potassium 3.4 mmol/L (3.3-5.1); Sodium Level 137 mmol/L (133-145)
[2024-12-01] MEDS: Levothyroxine 100 MCG Tablet PO (05:47)
[2024-12-01 07:56] VITALS: O2SAT 94
[2024-12-01] MEDS: Aspirin E.C. 81 MG Tablet PO (08:51)
[2024-12-01] MEDS: Tamsulosin HCl 0.4 MG Capsule PO ×2 (08:51→17:04)
[2024-12-01 09:00] VITALS: BP 136/68; PULSE 60; RESP 18; TEMP 36.7; O2SAT 97
[2024-12-01] MEDS: Finasteride 5 MG Tablet PO (09:01)
[2024-12-01] MEDS: Lisinopril 5 MG Tablet PO (09:01)
[2024-12-01] MEDS: Menthol/Lanolin/Calamine/Znox 113 GM Tube 1 APPLIC TOPICAL ×3 (09:03→17:04)
[2024-12-01] MEDS: Enoxaparin 40 MG/0.4 ML Syringe SC (09:03)
--- NOTE | 2024-12-01 10:44 | PN.HOSP_ITS ---
Reason for Visit Reason for Visit: Diagnoses Encephalopathy, unspecified (11/30/24) Urinary tract infection, site not specified (11/30/24) Subjective Subjective Saw patient at bedside this morning, daughter present. Patient appeared similar this morning to yesterday. Was alert and making appropriate eye contact but still only oriented x 1 to person and making repetitive nonsensical comments. He continues to deny any pain or discomfort. No other new concerns today. Objective Data Objective Data Vital Signs: Vital Signs Temp Pulse Resp BP Pulse Ox O2 Del Method 98.0 F 60 18 136/68 H 97 Room Air 12/01/24 09:00 12/01/24 09:00 12/01/24 09:00 12/01/24 09:00 12/01/24 09:00 12/01/24 09:00 Oxygen Delivery Method Room Air Weight: 66.4 kg Body Mass Index (BMI) 20.4 Intake & Output: Intake and Output for Last 24 Hours 11/29/24 11/30/24 12/01/24 23:59 23:59 23:59 Intake Total 1000 / 1000 1100.00 / 1100.00 Output Total 0 / 0 Balance 1000 / 1000 1100.00 / 1100.00 Lab / Micro Data 12/01/24 04:31 12/01/24 04:31 Labs: Laboratory Results - last 24 hr 12/01/24 04:31: WBC 9.0, RBC 4.00 L, Hgb 12.7 L, Hct 37.0 L, MCV 92.5, MCH 31.8, MCHC 34.3, RDW Std Deviation 45.9 H, RDW Coeff of Silvana 13.5, Plt Count 278, MPV 9.6, Sodium 137, Potassium 3.4, Chloride 107, Carbon Dioxide 19.4 L, Anion Gap 10, BUN 12, Creatinine 0.89, Estim Creat Clear Calc 60.10, Est GFR (MDRD) Non-Af 86, BUN/Creatinine Ratio 13.2, Glucose 107 H, Calcium 8.8 Radiography Diagnostic Testing: Radiology Impression Renal Ultrasound 11/30/24 08:19 IMPRESSION: 1. No hydronephrosis. Note sensitivity for pyelonephritis is very limited by ultrasound. Correlate with urinalysis. CT with contrast could be performed to evaluate for abnormal enhancement, as clinically indicated. 2. 6.2 cm cystic lesion along the anterior bladder with mass-effect, uncertain etiology. Recommend dedicated pelvic ultrasound and/or CT pelvis with contrast, which could be on an outpatient basis. 3. Correlate for clinical and laboratory evidence of chronic liver disease such as hepatic steatosis. 4. Additional description as above. Pelvic Reading Location: [facility] Abdomen/Pelvis CT 11/30/24 13:25 IMPRESSION: 1. No acute abdominopelvic finding or suspicious bladder mass. 2. Partially visualized penile prosthesis with inflation reservoir pump within the right lower quadrant adjacent to the urinary bladder. Reading Location: [facility] Physical Exam Const alert, no apparent distress and average body habitus Constitutional Narrative: Elderly male, alert and oriented x 1 to person, good level of alertness noted (improved from admission), making appropriate eye contact but not answering questions appropriately, otherwise sitting up comfortably in bedside chair and in no acute distress. Stable. General Appearance: cooperative and comfortable HEENT normocephalic, head/scalp atraumatic, hearing grossly normal bilaterally, nasal mucous membranes and turbinates normal and moist oral mucous membranes Eyes PERRL, EOMs intact bilaterally and conjunctivae normal Neck full ROM Chest inspection of chest normal Resp normal respiratory effort, normal air movement, no use of accessory muscles and clear to auscultation bilaterally Cardio regular rate, regular rhythm, no murmurs and peripheral pulses 2+ throughout GI normal to inspection, nondistended, normoactive bowel sounds, soft to palpation, non-tender and non-distended Bladder / Kidney Exam: No bladder normal to palpation and No no CVA tenderness Back/Spine normal ROM Extremity normal to inspection, full ROM and no pedal edema Skin no rashes or lesions noted Assessment & Plan Assessment/Plan (1) Encephalopathy acute: (2) UTI (urinary tract infection): PLAN: Plan Patient is an 84-year-old male who presented to [facility] ED on 11/29/2024 with confusion. 1. Acute metabolic encephalopathy suspected secondary to UTI, history of BPH with obstructive symptoms ? Presented with worsening confusion for last 1 to 2 days. Lives at home alone, daughter is very involved and talks to him daily. Normally alert and oriented x 3 with good functional status. Only alert and oriented x 1 with some somnolence noted on admission. CT brain unremarkable. Appears most consistent with confusion secondary to UTI at this time. UA infectious appearing on admit and mild leukocytosis noted. Renal/bladder ultrasound with no evidence of hydronephrosis and patient with good urine output since admission. Has had good improvement in energy level per daughter but remains A&O x 1 to person on 12/01. Seems less likely secondary to seizure disorder as below. Acute CVA is a possibility but patient has no focal deficits on exam. No liver disease noted, very low concern for hepatic encephalopathy. Will continue to treat with IV ceftriaxone, follow-up urine culture. If no improvement by tomorrow, will plan to expand workup further. Continue home Flomax and finasteride. 2. 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 Had similar presentation back in 2021 that was concerning for seizure activity and he was transferred to the [facility] for further management at that time. Has been stable on antiepileptics since then. Per daughter, patient missed doses of zonisamide for the past 2 days due to his confusion as above. Encephalopathy as above seems more likely due to UTI as opposed to seizure activity. However, if patient does not improve by tomorrow we will plan for spot EEG plus and MRI brain for further evaluation. Continue home zonisamide. 3. 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 Renal/bladder ultrasound on 11/30 showed 6.2 x 6.0 x 5.5 cm cystic lesion along the anterior bladder with some mass effect on the bladder noted. CT abdomen pelvis showed penile implant with reservoir next of the bladder; no need for further evaluation. 4. Mild TIANA, resolved ? Creatinine 1.30 on admit, improved to baseline 0.9 with IV fluid resuscitation. 5. History of CAD with CABG, hypertension ? Stable. Continue home aspirin and lisinopril. 6. Hypothyroidism ? TSH elevated at 15.6 but free T4 normal at 1.30. Continue home Synthroid. DVT prophylaxis: Lovenox CODE STATUS: Full code, verified Expected disposition: Home, 2 to 3 days Total clinical time spent by myself addressing the patient's medical issues, reviewing all the data, and collaborating with patient's care team: 35 minutes. Charges/Coding Visit Charges Inpatient E&M: 71078 Subs Hosp L2
[2024-12-01] MEDS: Haloperidol Lactate 5 MG/ML Vial 2 MG IM (14:08)
[2024-12-01 15:00] VITALS: BP 136/60; PULSE 63; RESP 16; TEMP 36.5; O2SAT 99
[2024-12-01] MEDS: Ziprasidone IM 20 MG/ML VIAL 10 MG IM (17:05)
[2024-12-01] MEDS: ZONISAMIDE 100 MG CAPSULE 200 MG PO (19:57)
[2024-12-01] MEDS: MELATONIN 3 MG TABLET PO (19:57)
--- NOTE | 2024-12-01 20:00 | NURSING ---
Patient refusing to keep telemetry on, keeps taking if off and getting agitated with RN and getting aggressive. Daughter at bedside and aware.
[2024-12-01 21:30] VITALS: BP 137/70; PULSE 56; RESP 18; TEMP 36.1; O2SAT 97
[2024-12-01] MEDS: Ceftriaxone 1 GM/50 ML BAG IV (21:41)
[2024-12-02] VITALS (7 sets, daily range): BP systolic 130–137; BP diastolic 74–83; PULSE 53–88; RESP 18; TEMP 36.1–36.6; O2SAT 96–99; BMI 20.3
[2024-12-02] MEDS: Acetaminophen 325 MG Tablet 650 MG PO (02:04)
[2024-12-02] MEDS: Levothyroxine 100 MCG Tablet PO (02:04)
[2024-12-02 05:53] LABS: Hematocrit 37.4 % (40-54); Hemoglobin 12.7 g/dL (13.0-16.5); Mean Corpuscular Hgb 31.3 pg (27.0-32.0); Mean Corpuscular Volume 92.1 fL (80-94); Mean Platelet Vol. 9.5 fl (6.2-12.0); Platelet Count 288 K/mm3 (150-450); RBC Distribution Width CV 13.6 % (11.6-14.6); RBC Distribution Width SD 46.5 fl (35.1-43.9); Red Blood Count 4.06 M/mm3 (4.6-6.2); White Blood Count 7.9 K/mm3 (4.4-11.0)
[2024-12-02 06:17] LABS: Anion Gap 9 (5-15); BUN 8 mg/dL (4-19); BUN/Creat Ratio 9.4 RATIO (10-20); Calcium,Total 8.8 mg/dL (7.6-11.0); Chloride 111 mmol/L (98-108); Creatinine, Serum 0.81 mg/dL (0.70-1.20); EST Glomerular Filtration Rate 88 (>60); Estimated Creatinine Clearance 65.94 ml/min (50-250); Glucose 105 mg/dL (70-99); Potassium 3.5 mmol/L (3.3-5.1); Sodium Level 138 mmol/L (133-145)
[2024-12-02] MEDS: Tamsulosin HCl 0.4 MG Capsule PO ×2 (08:09→18:20)
[2024-12-02] MEDS: Aspirin E.C. 81 MG Tablet PO (08:09)
[2024-12-02 08:19] LABS: AST(SGOT) 39 U/L (<=37); Alanine Aminotransfer ALT/SGPT 20 U/L (<=46); Albumin, Serum 3.7 g/dL (3.4-4.8); Alkaline Phosphatase 38 U/L (40-129); Ammonia 29.6 umol/L (16-60); Bilirubin, Direct 0.33 mg/dL (0.00-0.30); Globulin 2.4 g/dL (2.2-4.2); Protein, Total 6.1 g/dL (5.9-8.4); Total Bilirubin 0.89 mg/dL (0.00-1.30)
--- NOTE | 2024-12-02 09:36 | PCM.PN.HOSP ---
Reason for Visit Reason for Visit: Diagnoses Encephalopathy, unspecified (11/30/24) Urinary tract infection, site not specified (11/30/24) Subjective Subjective Saw patient at bedside this morning, daughter present. Patient was sitting back comfortably in bed. Talked with him for several minutes and he was answering questions more appropriately today than previous days. He is alert and oriented x 3 now but still has confusion regarding certain things; for example he thought he came to the hospital here due to an infection that he got while on vacation in [place] and came directly to our hospital from [place]. Discussed with patient and daughter and given his underlying history, we will plan for spot EEG and MRI brain tomorrow for further evaluation. Continuing to treat UTI for now. No other new concerns today. Objective Data Objective Data Vital Signs: Vital Signs Temp Pulse Resp BP Pulse Ox O2 Del Method 98 F 88 18 130/80 H 99 Room Air 12/02/24 08:10 12/02/24 08:15 12/02/24 08:15 12/02/24 08:10 12/02/24 08:15 12/02/24 08:15 Oxygen Delivery Method Room Air Weight: 66.3 kg Body Mass Index (BMI) 20.3 Intake & Output: Intake and Output for Last 24 Hours 11/30/24 12/01/24 12/02/24 23:59 23:59 23:59 Intake Total 1100.00 / 1100.00 50 / 50 Output Total 0 / 0 Balance 1100.00 / 1100.00 50 / 50 Lab / Micro Data 12/02/24 05:35 12/02/24 05:35 Labs: Laboratory Results - last 24 hr 12/02/24 05:35: WBC 7.9, RBC 4.06 L, Hgb 12.7 L, Hct 37.4 L, MCV 92.1, MCH 31.3, MCHC 34.0, RDW Std Deviation 46.5 H, RDW Coeff of Silvana 13.6, Plt Count 288, MPV 9.5, Sodium 138, Potassium 3.5, Chloride 111 H, Carbon Dioxide 18.0 L, Anion Gap 9, BUN 8, Creatinine 0.81, Estim Creat Clear Calc 65.94, Est GFR (MDRD) Non-Af 88, BUN/Creatinine Ratio 9.4 L, Glucose 105 H, Calcium 8.8 12/02/24 07:45: Total Bilirubin 0.89, Direct Bilirubin 0.33 H, AST 39 H, ALT 20, Alkaline Phosphatase 38 L, Ammonia 29.6, Total Protein 6.1, Albumin 3.7, Globulin 2.4 Micro: Microbiology 11/29/24 23:51 Urine, Catheterized Urine Culture - Preliminary Gram positive organism Physical Exam Const alert, no apparent distress and average body habitus Constitutional Narrative: Elderly male, now alert and oriented x 3 but still with some confusion with answering other standard questions, otherwise sitting up comfortably in bed and in no acute distress. General Appearance: cooperative and comfortable HEENT normocephalic, head/scalp atraumatic, hearing grossly normal bilaterally, nasal mucous membranes and turbinates normal and moist oral mucous membranes Eyes PERRL, EOMs intact bilaterally and conjunctivae normal Neck full ROM Chest inspection of chest normal Resp normal respiratory effort, normal air movement, no use of accessory muscles and clear to auscultation bilaterally Cardio regular rate, regular rhythm, no murmurs and peripheral pulses 2+ throughout GI normal to inspection, nondistended, normoactive bowel sounds, soft to palpation, non-tender and non-distended Bladder / Kidney Exam: No bladder normal to palpation and No no CVA tenderness Back/Spine normal ROM Extremity normal to inspection, full ROM and no pedal edema Skin no rashes or lesions noted Assessment & Plan Assessment/Plan (1) Encephalopathy acute: (2) UTI (urinary tract infection): PLAN: Plan Patient is an 84-year-old male who presented to [facility] ED on 11/29/2024 with confusion. 1. Acute metabolic encephalopathy with intermittent agitation suspected secondary to UTI, history of BPH with obstructive symptoms ? Presented with worsening confusion for last 1 to 2 days. Lives at home alone, daughter is very involved and talks to him daily. Normally alert and oriented x 3 with good functional status. Only alert and oriented x 1 with some somnolence noted on admission. CT brain unremarkable. Initially seemed most consistent with confusion secondary to UTI. UA infectious appearing on admit and mild leukocytosis noted. Renal/bladder ultrasound with no evidence of hydronephrosis and patient with good urine output since admission. No liver disease noted and ammonia level normal, very low concern for hepatic encephalopathy. Patient has shown some improvement and is alert and oriented x 3 as of 12/02, but he continues to have more confusion when answering standard questions than his baseline per daughter. He has also had some agitation and required doses of both Haldol and Geodon on 12/01. Notably he did not respond much to the Haldol but did respond well to the Geodon. While it seems less likely secondary to seizure disorder as below or acute CVA given no focal deficits on exam, cannot rule these out. Spot EEG and MRI brain without contrast ordered for tomorrow. Will continue to treat with IV ceftriaxone, follow-up urine culture. Continue home Flomax and finasteride. 2. 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 Had similar presentation back in 2021 that was concerning for seizure activity and he was transferred to the [facility] for further management at that time. Has been stable on antiepileptics since then. Per daughter, patient missed doses of zonisamide for the past 2 days due to his confusion as above. Encephalopathy as above seems more likely due to UTI as opposed to seizure activity but given his persistent encephalopathy, obtaining spot EEG and MRI brain tomorrow for further evaluation. Continue home zonisamide. 3. 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 Renal/bladder ultrasound on 11/30 showed 6.2 x 6.0 x 5.5 cm cystic lesion along the anterior bladder with some mass effect on the bladder noted. CT abdomen pelvis showed penile implant with reservoir next to the bladder; no need for further evaluation. 4. Mild TIANA, resolved ? Creatinine 1.30 on admit, improved to baseline 0.9 with IV fluid resuscitation. 5. History of CAD with CABG, hypertension ? Stable. Continue home aspirin and lisinopril. 6. Hypothyroidism ? TSH elevated at 15.6 but free T4 normal at 1.30. Continue home Synthroid. DVT prophylaxis: Lovenox CODE STATUS: Full code, verified Expected disposition: Home, 2 to 3 days Total clinical time spent by myself addressing the patient's medical issues, reviewing all the data, and collaborating with patient's care team: 35 minutes. Charges/Coding Visit Charges Inpatient E&M: 21540 Subs Hosp L2
[2024-12-02] MEDS: Finasteride 5 MG Tablet PO (10:02)
[2024-12-02] MEDS: Lisinopril 5 MG Tablet PO (10:02)
[2024-12-02] MEDS: Enoxaparin 40 MG/0.4 ML Syringe SC (10:02)
[2024-12-02] MEDS: Menthol/Lanolin/Calamine/Znox 113 GM Tube 1 APPLIC TOPICAL ×3 (10:03→18:20)
[2024-12-02] MEDS: ZONISAMIDE 100 MG CAPSULE 200 MG PO (19:48)
[2024-12-02] MEDS: MELATONIN 3 MG TABLET PO (19:48)
[2024-12-02] MEDS: 0.9% Saline Lock 10 ML Syringe IV (19:49)
[2024-12-02] MEDS: Ceftriaxone 1 GM/50 ML BAG IV (19:49)
[2024-12-03] MEDS: Levothyroxine 100 MCG Tablet PO (02:54)
[2024-12-03] MEDS: 0.9% Saline Lock 10 ML Syringe IV (02:54)
[2024-12-03 03:00] VITALS: BP 130/78; PULSE 59; RESP 18; TEMP 36.8; O2SAT 97
[2024-12-03 05:23] VITALS: BMI 20.3
--- NOTE | 2024-12-03 06:00 | MRI_ITS ---
PROCEDURE: BRAIN WITHOUT CONTRAST 12/03/2024 REASON FOR EXAM: PERSISTENT ENCEPHALOPATHY, EVAL FOR CVA TECHNIQUE: Noncontrast brain MRI. Multiplanar and multisequence images were obtained. COMPARISON: None FINDINGS: : BRAIN/PARENCHYMA: No evidence of acute infarction or acute intracranial hemorrhage. Few scattered foci of susceptibility, compatible with sequela of chronic microvascular hemorrhages. There are subcortical and periventricular white matter FLAIR hyperintensities, likely related to chronic microvascular ischemic disease. EXTRA-AXIAL SPACES: No abnormal extra-axial fluid collections. Patent basal cisterns and foramen magnum. MIDLINE SHIFT: None. VENTRICLES: No hydrocephalus. SCALP SOFT TISSUES & CALVARIUM: No significant abnormality. VISUALIZED SINUSES & MASTOIDS: No air-fluid levels in the paranasal sinuses. Mild paranasal sinus mucosal thickening. Right sphenoid sinus mucous retention cyst. The mastoid air cells are clear. ARTERIAL FLOW VOIDS: Preserved major arterial flow voids indicating gross patency. MRI/Brain without Contrast IMPRESSION: No acute intracranial abnormality; no acute infarct, intracranial hemorrhage or extra-axial collection. Moderate chronic microvascular ischemia and involutional changes. [facility]
[2024-12-03 07:04] LABS: Hemoglobin 12.7 g/dL (13.0-16.5); Mean Corp Hgb Conc 34.3 g/dL (32-36); Mean Corpuscular Hgb 31.6 pg (27.0-32.0); Mean Platelet Vol. 9.8 fl (6.2-12.0); Platelet Count 290 K/mm3 (150-450); RBC Distribution Width CV 13.5 % (11.6-14.6); RBC Distribution Width SD 46.1 fl (35.1-43.9); Red Blood Count 4.02 M/mm3 (4.6-6.2); White Blood Count 8.7 K/mm3 (4.4-11.0)
[2024-12-03 07:59] VITALS: BP 137/78; PULSE 53; RESP 17; TEMP 36.7; O2SAT 99
[2024-12-03] MEDS: Tamsulosin HCl 0.4 MG Capsule PO ×2 (08:02→18:10)
[2024-12-03] MEDS: Aspirin E.C. 81 MG Tablet PO (08:02)
[2024-12-03 09:03] LABS: Anion Gap 10 (5-15); BUN 11 mg/dL (4-19); BUN/Creat Ratio 13.2 RATIO (10-20); Calcium,Total 8.9 mg/dL (7.6-11.0); Chloride 108 mmol/L (98-108); Creatinine, Serum 0.84 mg/dL (0.70-1.20); EST Glomerular Filtration Rate 87 (>60); Estimated Creatinine Clearance 63.39 ml/min (50-250); Glucose 97 mg/dL (70-99); Potassium 3.5 mmol/L (3.3-5.1); Sodium Level 136 mmol/L (133-145)
[2024-12-03] MEDS: Lisinopril 5 MG Tablet PO (09:44)
[2024-12-03] MEDS: Enoxaparin 40 MG/0.4 ML Syringe SC (09:45)
[2024-12-03] MEDS: Finasteride 5 MG Tablet PO (09:45)
[2024-12-03] MEDS: Menthol/Lanolin/Calamine/Znox 113 GM Tube 1 APPLIC TOPICAL ×4 (09:45→22:46)
--- NOTE | 2024-12-03 11:26 | PCM.PN.HOSP ---
Reason for Visit Reason for Visit: Diagnoses Encephalopathy, unspecified (11/30/24) Urinary tract infection, site not specified (11/30/24) Objective Data Objective Data Vital Signs: Vital Signs Temp Pulse Resp BP Pulse Ox O2 Del Method 98.1 F 53 L 17 137/78 H 99 Room Air 12/03/24 07:59 12/03/24 07:59 12/03/24 07:59 12/03/24 07:59 12/03/24 07:59 12/03/24 07:59 Oxygen Delivery Method Room Air Weight: 145 lb 11.609 oz Body Mass Index (BMI) 20.3 Intake & Output: Intake and Output for Last 24 Hours 12/01/24 12/02/24 12/03/24 23:59 23:59 23:59 Intake Total 50 / 50 950 / 950 Balance 50 / 50 950 / 950 Lab / Micro Data 12/03/24 06:12 12/03/24 06:12 Labs: Laboratory Results - last 24 hr 12/03/24 06:12: WBC 8.7, RBC 4.02 L, Hgb 12.7 L, Hct 37.0 L, MCV 92.0, MCH 31.6, MCHC 34.3, RDW Std Deviation 46.1 H, RDW Coeff of Silvana 13.5, Plt Count 290, MPV 9.8, Sodium 136, Potassium 3.5, Chloride 108, Carbon Dioxide 19.0 L, Anion Gap 10, BUN 11, Creatinine 0.84, Estim Creat Clear Calc 63.39, Est GFR (MDRD) Non-Af 87, BUN/Creatinine Ratio 13.2, Glucose 97, Calcium 8.9 Micro: Microbiology 11/29/24 23:51 Urine, Catheterized Urine Culture - Final Staphylococcus epidermidis Physical Exam Narrative Complained that he has not been on for about 1 week. Stated he was confused when he came in. Patient states he does not know or actually denies history of seizure. He is on zonisamide Physical exam General: Alert, Oriented x3, Cooperative HEENT: Atraumatic, PERRLA, EOMI, Normocephalic. Oral: No Gingival or Mucosal Lesions/ Ulcerations Neck: Supple, No JVD, Negative Carotid Bruits Chest wall/Lungs: Air entry diminished in bilateral lung bases. No crepitation/rhonchi Cardiovascular: Regular rate and rhythm, Normal S1,S2, systolic murmur Abdomen: Bowel Sounds Present, Soft, Non Tender, Non-Distended : No dysuria. No renal angle tenderness. No suprapubic tenderness. Extremities: No edema, Capillary Refill Less than 3 Seconds Skin: No rashes, No breakdown Musculoskeletal: No Tenderness to Palpation of Joints or Extremities Neurological: Cranial nerves II-XII grossly intact, DTR 2+/4. No acute focal neurological deficit. Psych/Mental Status: Flat affect. Does not remember last few days, amnesia.Early dementia Assessment & Plan Assessment/Plan (1) Encephalopathy acute: (2) UTI (urinary tract infection): PLAN: Plan Patient is an 84-year-old male who presented to [facility] ED on 11/29/2024 with worsening confusion for 1 to 2 days with somnolence. 1. Acute metabolic encephalopathy with intermittent agitation suspected secondary to UTI, history of BPH with obstructive symptoms: Patient being admitted in PCU. Patient looks more awake and talking, oriented today. As per his daughter patient still confused. Urine culture shows MSSE more than 100,[address] Evans and contacted for doxycycline 100 mg twice daily for 5 days. IV ceftriaxone discontinued. Other workup including CT brain and renal bladder ultrasound was unremarkable with no evidence of hydronephrosis. Continue home Flomax and finasteride 2. 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 Had similar presentation back in 2021 that was concerning for seizure activity and he was transferred to the [facility] for further management at that time. Has been stable on antiepileptics since then. Per daughter, patient missed doses of zonisamide for the past 2 days due to his confusion as above. 12/03: EEG shows mild encephalopathy otherwise no epileptiform discharges. MRI brain is not reported yet. 3. 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 Renal/bladder ultrasound on 11/30 showed 6.2 x 6.0 x 5.5 cm cystic lesion along the anterior bladder with some mass effect on the bladder noted. CT abdomen pelvis showed penile implant with reservoir next to the bladder; no need for further evaluation. 4. Mild TIANA, resolved ? Creatinine 1.30 on admit, improved to baseline 0.9 with IV fluid resuscitation. 5. History of CAD with CABG, hypertension ? Stable. Continue home aspirin and lisinopril. 6. Hypothyroidism ? TSH elevated at 15.6 but free T4 normal at 1.30. Continue home Synthroid. DVT prophylaxis: Lovenox CODE STATUS: Full code, verified I detailed discussion with patient's daughter who works in the cardiology as [employer]. She stated patient is not ready for discharge although I feel patient is COVID. Charges/Coding Visit Charges Inpatient E&M: 11828 Subs Hosp L2
[2024-12-03 14:38] VITALS: BP 119/64; PULSE 54; RESP 17; TEMP 36.7; O2SAT 97
[2024-12-03] MEDS: Doxycycline 100 MG CAPSULE PO ×2 (14:43→22:47)
[2024-12-03] MEDS: Polyethylene Glycol 3350 17 GM PACKET PO ×2 (14:44→22:47)
[2024-12-03] MEDS: Senna/Docusate Sodium 1 Tablet 2 TABLET PO ×2 (14:44→22:47)
[2024-12-03 18:06] VITALS: BP 131/79; PULSE 58; RESP 16; TEMP 37.2; O2SAT 97
[2024-12-03 19:00] VITALS: PULSE 60
[2024-12-03] MEDS: ZONISAMIDE 100 MG CAPSULE 200 MG PO (22:48)
[2024-12-03 22:57] VITALS: BP 154/79; PULSE 72; RESP 18; TEMP 36.6; O2SAT 95
[2024-12-04] MEDS: Acetaminophen 325 MG Tablet 650 MG PO (01:19)
[2024-12-04 01:32] VITALS: BP 147/91; PULSE 76; RESP 16; TEMP 36.8; O2SAT 98
[2024-12-04 02:01] VITALS: PULSE 58
[2024-12-04 03:25] VITALS: BMI 20.1
[2024-12-04 05:12] LABS: Absolute Lymphocyte Count 1.65 X10^3/uL (0.83-4.51); Absolute Neutrophil Count 5.4 X10^3/uL (2.0-7.7); Basophil% 1.2 % (0-1); Eosinophil# 0.25 X10^3/uL; Eosinophils% 3.1 % (0-5); Hemoglobin 12.9 g/dL (13.0-16.5); Lymphocyte # 1.65 X10^3/ul (0.83-4.51); Lymphocyte % 20.1 % (19-41); Mean Corp Hgb Conc 34.9 g/dL (32-36); Mean Corpuscular Hgb 31.5 pg (27.0-32.0); Mean Corpuscular Volume 90.5 fL (80-94); Mean Platelet Vol. 9.3 fl (6.2-12.0); Monocyte# 0.79 X10^3/uL; Monocyte% 9.6 % (0-10); NRBC Flagged by Analyzer 0 % (0-5); Neutrophil # 5.36 X10^3/uL (2.7-7.7); Neutrophil % 65.5 % (47-70); Platelet Count 284 K/mm3 (150-450); RBC Distribution Width CV 13.3 % (11.6-14.6); RBC Distribution Width SD 44.4 fl (35.1-43.9); Red Blood Count 4.09 M/mm3 (4.6-6.2); White Blood Count 8.2 K/mm3 (4.4-11.0)
[2024-12-04] MEDS: Levothyroxine 100 MCG Tablet PO (05:36)
[2024-12-04 05:43] LABS: Anion Gap 12 (5-15); BUN 10 mg/dL (4-19); BUN/Creat Ratio 12.4 RATIO (10-20); Calcium,Total 8.9 mg/dL (7.6-11.0); Chloride 104 mmol/L (98-108); Creatinine, Serum 0.81 mg/dL (0.70-1.20); EST Glomerular Filtration Rate 88 (>60); Estimated Creatinine Clearance 65.24 ml/min (50-250); Glucose 104 mg/dL (70-99); Potassium 3.7 mmol/L (3.3-5.1); Sodium Level 135 mmol/L (133-145)
[2024-12-04 06:52] VITALS: BP 143/71; PULSE 85; RESP 16; TEMP 36.9; O2SAT 95
[2024-12-04] MEDS: Aspirin E.C. 81 MG Tablet PO (08:43)
[2024-12-04] MEDS: Tamsulosin HCl 0.4 MG Capsule PO ×2 (08:43→17:17)
[2024-12-04] MEDS: Menthol/Lanolin/Calamine/Znox 113 GM Tube 1 APPLIC TOPICAL ×3 (08:43→17:20)
[2024-12-04] MEDS: Enoxaparin 40 MG/0.4 ML Syringe SC (08:44)
[2024-12-04] MEDS: Lisinopril 5 MG Tablet PO (08:44)
[2024-12-04] MEDS: Finasteride 5 MG Tablet PO (08:44)
[2024-12-04] MEDS: Polyethylene Glycol 3350 17 GM PACKET PO (08:44)
[2024-12-04] MEDS: Doxycycline 100 MG CAPSULE PO (08:44)
[2024-12-04] MEDS: Senna/Docusate Sodium 1 Tablet 2 TABLET PO (08:44)
[2024-12-04 09:00] VITALS: BP 150/76; PULSE 70; RESP 16; TEMP 36.8; O2SAT 99
--- NOTE | 2024-12-04 09:40 | DCINST_ITS ---
Discharge Instructions Diet Discharge Diet: Low fat / Low cholesterol DC O2, CPAP, BIPAP needs Home O2 Discharge instructions: No Dressing / Incision Discharge Activity: Return to Normal Activity Weight Bearing Status: Weight bearing as tolerated Dressing / Incision Call your doctor if you observe: Fever of 101 or Higher, Coldness, Increased Pain, Numbness or Tingling, Change in Color, Inability to urinate, Inability to have a bowel movement, Shortness of breath, Dizziness, Fainting spells, Swelling in the ankles, Chest pain, Prolonged hiccupping, Increased palpitations (irregular heartbeat) and Calf discomfort Follow Up Care When: IN 2 WEEKS Test Results: Test results from this visit will be discussed in further detail at your follow- up appointment, if applicable. Discharge Plan Admission Admit Date/Time: 11/30/24 00:42 Attending Provider: Edis Deras Primary Care Provider: Leobardo Heredia Consulting Providers: Abby Elam; Kay Recio; Melody Jones; Jennifer Painter; Bryan Grewal; Mark Grier; Sharda Moulton; SHARIF WORKMAN; Eveline Hsu; María Miller; Jens Martinez; Lavonne Pedro; Gerber Cee Instructions Additional Instructions / Restrictions: Follow-up with [facility] neurologist Dr. Jesús Kruger in a month time. Discharge Orders/Prescriptions Prescriptions: New doxycycline monohydrate 100 mg Capsule 100 mg PO BID 5 Days Qty: 10 0RF Continued levothyroxine 100 mcg tablet 100 mcg PO DAILY aspirin [Adult Low Dose Aspirin] 81 mg tablet,delayed release (DR/EC) 81 mg PO DAILY acetaminophen 500 mg Tablet 1,000 mg PO Q6H PRN PRN (Reason: Pain Score 1-10) Qty: 0 0RF tamsulosin 0.4 mg Capsule 0.4 mg PO 0830,1730 30 Days Qty: 60 0RF finasteride 5 mg Tablet 5 mg PO DAILY 30 Days Qty: 30 0RF zonisamide [Zonegran] 100 mg capsule 200 mg PO DAILY Qty: 60 0RF Rx Instructions: Take at bedtime. lisinopril 5 mg tablet 5 mg PO DAILY Referrals / Follow Up: Leobardo Heredia MD [Primary Care Provider] - Disposition Disposition (needs filled in before D/C Order can be placed): Home, Self Care
--- NOTE | 2024-12-04 09:45 | CASEMGMT ---
RN CM spoke with daughter Sonal regarding dicharge planning as patient is still slightly confused. Daughter denies needs or help at discharge. RN CM advised daughter to follow up with PCP if needs should arise after discharge, daughter voiced understanding. Daughter had no further questions or concerns.
--- NOTE | 2024-12-04 12:51 | PCM.DC.SUM ---
Providers Date of Admission: 11/30/24 Date of Discharge: 12/04/24 Primary Care Physician: Dr. Leobardo Heredia MD Reason For Visit: ENCEPHALOPATHY, UTI, POSSIBLE BREAKTHROUGH SEIZURE Diagnosis Discharge Diagnosis (1) Encephalopathy acute: Status: Acute Code(s): G93.40 - Encephalopathy, unspecified (2) UTI (urinary tract infection): Status: Acute Code(s): N39.0 - Urinary tract infection, site not specified Plan Patient is an 84-year-old male who presented to [facility] ED on 11/29/2024 with worsening confusion for 1 to 2 days with somnolence. 1. Acute metabolic encephalopathy with intermittent agitation suspected secondary to UTI, history of BPH with obstructive symptoms: Patient being admitted in PCU. Patient looks more awake and talking, oriented today. As per his daughter patient still confused. Urine culture shows MSSE more than 100,[address] Evans and contacted for doxycycline 100 mg twice daily for 5 days. IV ceftriaxone discontinued. Other workup including CT brain and renal bladder ultrasound was unremarkable with no evidence of hydronephrosis. Continue home Flomax and finasteride 12/04: Acute encephalopathy resolved. Patient is talking coherent since yesterday. Patient also said that he has 1 girlfriend retired doctor who moved from [place] to his neighborhood about 3 months ago. She takes care of him. After talking to her daughter who works here, she denied that. I feel like patient has confabulation family dementia. He follows neurologist Dr. Jesús Kruger advised to follow-up in 1 month. MRI brain is still not reported. Prescription given for doxycycline as mentioned above. 2. 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 Had similar presentation back in 2021 that was concerning for seizure activity and he was transferred to the [facility] for further management at that time. Has been stable on antiepileptics since then. Per daughter, patient missed doses of zonisamide for the past 2 days due to his confusion as above. 12/03: EEG shows mild encephalopathy otherwise no epileptiform discharges. MRI brain is not reported yet. 3. 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 Renal/bladder ultrasound on 11/30 showed 6.2 x 6.0 x 5.5 cm cystic lesion along the anterior bladder with some mass effect on the bladder noted. CT abdomen pelvis showed penile implant with reservoir next to the bladder; no need for further evaluation. 4. Mild TIANA, resolved ? Creatinine 1.30 on admit, improved to baseline 0.9 with IV fluid resuscitation. 5. History of CAD with CABG, hypertension ? Stable. Continue home aspirin and lisinopril. 6. Hypothyroidism ? TSH elevated at 15.6 but free T4 normal at 1.30. Continue home Synthroid. DVT prophylaxis: Lovenox CODE STATUS: Full code, verified I had a phone discussion yesterday and in person discussion with her daughter regarding his health care. Discharge medication reconciliation done. Discharge follow-up instructions completed. Discharge process discussed with the patient and all questions were answered to patient's satisfaction. Follow with PCP in 1 to 2 weeks Total time spent, exact 35 minutes on discharge meds reconciliation, examination, coordination of care with nurses and ancillary staff, review of imaging and blood test and discussion with the patient on follow-up instructions. Medications at Discharge Home Medications levothyroxine 100 mcg tablet 100 mcg PO DAILY thyroid 09/02/21 aspirin 81 mg tablet,delayed release (Adult Low Dose Aspirin) 81 mg PO DAILY blood thinner 04/13/22 acetaminophen 500 mg tablet 1,000 mg (2 x 500 mg) PO Q6H PRN PRN Pain Score 1-10 #0 tabs 05/18/22 finasteride 5 mg tablet 5 mg PO DAILY 30 days #30 tabs 05/18/22 tamsulosin 0.4 mg capsule 0.4 mg PO 0830,1730 30 days #60 caps 05/18/22 zonisamide 100 mg capsule (Zonegran) 200 mg (2 x 100 mg) PO DAILY #60 caps 05/18/22 lisinopril 5 mg tablet 5 mg PO DAILY BP 11/29/24 doxycycline monohydrate 100 mg capsule 100 mg PO BID 5 days #10 caps 12/04/24 Physical Exam Narrative No acute issues. Patient confabulates some story. He stated he wants to go home as the hospital bed is not good. Physical exam General: Alert, Oriented x3, Cooperative HEENT: Atraumatic, PERRLA, EOMI, Normocephalic. Oral: No Gingival or Mucosal Lesions/ Ulcerations Neck: Supple, No JVD, Negative Carotid Bruits Chest wall/Lungs: Air entry diminished in bilateral lung bases. No crepitation/rhonchi Cardiovascular: Regular rate and rhythm, Normal S1,S2, systolic murmur Abdomen: Bowel Sounds Present, Soft, Non Tender, Non-Distended : No dysuria. No renal angle tenderness. No suprapubic tenderness. Extremities: No edema, Capillary Refill Less than 3 Seconds Skin: No rashes, No breakdown Musculoskeletal: No Tenderness to Palpation of Joints or Extremities Neurological: Cranial nerves II-XII grossly intact, DTR 2+/4. No acute focal neurological deficit. Psych/Mental Status: Flat affect. Does not remember last few days, amnesia.Early dementia Weight / BMI Weight Weight: 144 lb 9.972 oz Body Mass Index (BMI) 20.1 ABG / Lab / Microbiology Data 12/04/24 05:00 12/04/24 05:00 Laboratory: Laboratory Results - last 24 hr 12/04/24 05:00: WBC 8.2, RBC 4.09 L, Hgb 12.9 L, Hct 37.0 L, MCV 90.5, MCH 31.5, MCHC 34.9, RDW Std Deviation 44.4 H, RDW Coeff of Silvana 13.3, Plt Count 284, MPV 9.3, Immature Gran % (Auto) 0.500, Neut % (Auto) 65.5, Lymph % (Auto) 20.1, Finney % (Auto) 9.6, Eos % (Auto) 3.1, Baso % (Auto) 1.2 H, Absolute Neuts (auto) 5.4, Absolute Lymphs (auto) 1.65, Nucleated RBC % 0, Sodium 135, Potassium 3.7, Chloride 104, Carbon Dioxide 19.0 L, Anion Gap 12, BUN 10, Creatinine 0.81, Estim Creat Clear Calc 65.24, Est GFR (MDRD) Non-Af 88, BUN/Creatinine Ratio 12.4, Glucose 104 H, Calcium 8.9 Microbiology: Microbiology 11/29/24 23:51 Urine, Catheterized Urine Culture - Final Staphylococcus epidermidis Radiography Diagnostic Testing: Radiology Impression Renal Ultrasound 11/30/24 08:19 IMPRESSION: 1. No hydronephrosis. Note sensitivity for pyelonephritis is very limited by ultrasound. Correlate with urinalysis. CT with contrast could be performed to evaluate for abnormal enhancement, as clinically indicated. 2. 6.2 cm cystic lesion along the anterior bladder with mass-effect, uncertain etiology. Recommend dedicated pelvic ultrasound and/or CT pelvis with contrast, which could be on an outpatient basis. 3. Correlate for clinical and laboratory evidence of chronic liver disease such as hepatic steatosis. 4. Additional description as above. Pelvic Reading Location: [facility] Brain MRI 12/03/24 06:00 IMPRESSION: No acute intracranial abnormality; no acute infarct, intracranial hemorrhage or extra-axial collection. Moderate chronic microvascular ischemia and involutional changes. [facility] Instructions Discharge Diet: Low fat / Low cholesterol Weight Bearing Status: Weight bearing as tolerated Call your doctor if you observe: Fever of 101 or Higher, Coldness, Increased Pain, Numbness or Tingling, Change in Color, Inability to urinate, Inability to have a bowel movement, Shortness of breath, Dizziness, Fainting spells, Swelling in the ankles, Chest pain, Prolonged hiccupping, Increased palpitations (irregular heartbeat) and Calf discomfort DC O2, CPAP, BIPAP Needs Home O2 Discharge instructions: No When: IN 2 WEEKS Meaningful Use Info Meaningful Use Meaningful Use Diagnoses (Choose all that apply): None applicable Ischemic Stroke Statin Dosing Therapy Reference: STATIN DOSE THERAPY REFERENCE: * Patients > 75 years receive moderate or high dose statin therapy. * Patients 75 years or YOUNGER should receive HIGH intensity statin dose unless contraindicated. You will be required to document reason for non-treatment if statin daily dose does not meet guidelines. HIGH DOSE STATIN THERAPY DAILY Atorvastatin > than or = to 40 mg Rosuvastatin > than or = to 20 mg Amlodipine + Atorvastatin > than or = to 2.5/40 mg Ezetimibe + Simvastatin 10/80 mg Simvastatin 80mg Discharge Plan Admission Admit Date/Time: 11/30/24 00:42 Attending Provider: Edis Deras Primary Care Provider: Leobardo Heredia Consulting Providers: Abby Elam; Kay Recio; Melody Jones; Jennifer Painter; Bryan Grewal; Mark Grier; Sharda Moulton; SHARIF WORKMAN; Eveline Hsu; María Miller; Jesn Martinez; Lavonne Pedro; Gerber Cee Instructions Additional Instructions / Restrictions: Follow-up with [facility] neurologist Dr. Jesús Kruger in a month time. Discharge Orders/Prescriptions Prescriptions: New doxycycline monohydrate 100 mg Capsule 100 mg PO BID 5 Days Qty: 10 0RF Continued levothyroxine 100 mcg tablet 100 mcg PO DAILY aspirin [Adult Low Dose Aspirin] 81 mg tablet,delayed release (DR/EC) 81 mg PO DAILY acetaminophen 500 mg Tablet 1,000 mg PO Q6H PRN PRN (Reason: Pain Score 1-10) Qty: 0 0RF tamsulosin 0.4 mg Capsule 0.4 mg PO 0830,1730 30 Days Qty: 60 0RF finasteride 5 mg Tablet 5 mg PO DAILY 30 Days Qty: 30 0RF zonisamide [Zonegran] 100 mg capsule 200 mg PO DAILY Qty: 60 0RF Rx Instructions: Take at bedtime. lisinopril 5 mg tablet 5 mg PO DAILY Referrals / Follow Up: Leobardo Heredia MD [Primary Care Provider] - Disposition Disposition (needs filled in before D/C Order can be placed): Home, Self Care Charges/Coding Visit Charges Inpatient E&M: 85549 Disch Hosp >30min
--- NOTE | 2024-12-04 14:33 | PHA.DC.MR.R ---
Pharm[facility] [place] [facility]con[facility] has performed discharge medication reconciliation for this patient. Went to [facility], nurse said pt has been confused so did not [employer] [facility]. Medications reviewed. The patient's discharge medication list was reviewed for discrepancies and discrepancies were resolved. Medications at Discharge Home Medications levothyroxine 100 mcg tablet 100 mcg PO DAILY thyroid 09/02/21 aspirin 81 mg tablet,delayed release (Adult Low Dose Aspirin) 81 mg PO DAILY blood thinner 04/13/22 acetaminophen 500 mg tablet 1,000 mg (2 x 500 mg) PO Q6H PRN PRN Pain Score 1-10 #0 tabs 05/18/22 finasteride 5 mg tablet 5 mg PO DAILY 30 days #30 tabs 05/18/22 tamsulosin 0.4 mg capsule 0.4 mg PO 0830,1730 30 days #60 caps 05/18/22 zonisamide 100 mg capsule (Zonegran) 200 mg (2 x 100 mg) PO DAILY #60 caps 05/18/22 lisinopril 5 mg tablet 5 mg PO DAILY BP 11/29/24 doxycycline monohydrate 100 mg capsule 100 mg PO BID 5 days #10 caps 12/04/24
[2024-12-04 15:00] VITALS: BP 136/65; PULSE 60; RESP 17; TEMP 36.8; O2SAT 97
== END 2024-12-04 18:23 | disposition home or self-care (01) | DRG 689 ==
LOC: ED 22:32 → PCU 11-30 01:00
PROVIDERS: Hospitalist; Admitting Provider Family Medicine; Emergency Provider Surgery; PCP Family Medicine; Referring Provider Surgery; Visit Provider Internal Medicine
DX: N39.0 Urinary tract infection, site not specified (principal); G93.41 Metabolic encephalopathy; N17.9 Acute kidney failure, unspecified; G40.909 Epilepsy, unspecified, not intractable, without status epilepticus; I10 Essential (primary) hypertension; E03.9 Hypothyroidism, unspecified; F39 Unspecified mood [affective] disorder; E78.5 Hyperlipidemia, unspecified; I25.10 Atherosclerotic heart disease of native coronary artery without angina pectoris; I25.2 Old myocardial infarction; E80.7 Disorder of bilirubin metabolism, unspecified; E86.0 Dehydration; N13.8 Other obstructive and reflux uropathy; N40.1 Benign prostatic hyperplasia with lower urinary tract symptoms; N32.9 Bladder disorder, unspecified; I49.1 Atrial premature depolarization; Z95.1 Presence of aortocoronary bypass graft; Z96.0 Presence of urogenital implants; Z79.82 Long term (current) use of aspirin; Z79.899 Other long term (current) drug therapy; Z79.890 Hormone replacement therapy; Z91.148 Patient's other noncompliance with medication regimen for other reason
CPT/HCPCS: 36415; 70450; 70551; 71046; 74177; 76770; 80048; 80053; 80076; 80307; 81001; 82077; 82140; 82962; 83605; 83735; 84439; 84443; 84484; 85025; 85027; 87077; 87086; 87088; 87186; 93005; 95819; 97161; 97165; 99285; P9612; Q9967; A4216; J2405; J3486